=== PATIENT | male | born 1965 | race Caucasian/White ===

== ENCOUNTER → 2020-01-24 15:38 | Outpatient (BNVA) | payer OTHER, MEDICARE, SELFPAY | PROVIDERS: PCP Internal Medicine; Visit Provider Anesthesiology | DX: G89.4 Chronic pain syndrome (principal); M51.36 Other intervertebral disc degeneration, lumbar region; M47.816 Spondylosis without myelopathy or radiculopathy, lumbar region; M54.6 Pain in thoracic spine; Z79.891 Long term (current) use of opiate analgesic | CPT/HCPCS: 99203 ==

== ENCOUNTER → 2020-02-12 11:14 | Outpatient (BNVA) | payer OTHER, MEDICARE, SELFPAY | PROVIDERS: PCP Internal Medicine; Referring Provider Internal Medicine; Visit Provider Family Medicine Adult Medicine | DX: M47.816 Spondylosis without myelopathy or radiculopathy, lumbar region (principal); M51.36 Other intervertebral disc degeneration, lumbar region; M54.14 Radiculopathy, thoracic region; Z79.891 Long term (current) use of opiate analgesic | CPT/HCPCS: 99212 ==

== ENCOUNTER → 2020-03-11 10:42 | Outpatient (BNVA) | payer OTHER, MEDICARE, SELFPAY | PROVIDERS: PCP Internal Medicine; Visit Provider Family Medicine Adult Medicine | DX: M47.816 Spondylosis without myelopathy or radiculopathy, lumbar region (principal); M51.36 Other intervertebral disc degeneration, lumbar region; M54.14 Radiculopathy, thoracic region; Z79.891 Long term (current) use of opiate analgesic | CPT/HCPCS: 99212 ==

== ENCOUNTER → 2020-03-25 10:01 | Outpatient (BNVA) | payer OTHER, MEDICARE, SELFPAY | PROVIDERS: PCP Internal Medicine; Visit Provider Family Medicine Adult Medicine | DX: M54.14 Radiculopathy, thoracic region (principal); M47.816 Spondylosis without myelopathy or radiculopathy, lumbar region | CPT/HCPCS: 99212 ==

== ENCOUNTER → 2020-04-24 10:49 | Outpatient (BNVA) | payer OTHER, MEDICARE, SELFPAY | PROVIDERS: PCP Internal Medicine; Referring Provider Internal Medicine; Visit Provider Family Medicine Adult Medicine | DX: M54.14 Radiculopathy, thoracic region (principal); M47.816 Spondylosis without myelopathy or radiculopathy, lumbar region | CPT/HCPCS: 99212 ==

== ENCOUNTER → 2020-05-22 09:51 | Outpatient (BNVA) | payer OTHER, MEDICARE, SELFPAY | PROVIDERS: PCP Internal Medicine; Visit Provider Family Medicine Adult Medicine | DX: M54.14 Radiculopathy, thoracic region (principal); M47.816 Spondylosis without myelopathy or radiculopathy, lumbar region; Z79.891 Long term (current) use of opiate analgesic | CPT/HCPCS: 99212 ==

== ENCOUNTER → 2020-06-19 09:45 | Outpatient (BNVA) | payer OTHER, MEDICARE, SELFPAY | PROVIDERS: PCP Internal Medicine; Visit Provider Family Medicine Adult Medicine | DX: M54.14 Radiculopathy, thoracic region (principal); M47.816 Spondylosis without myelopathy or radiculopathy, lumbar region; Z79.899 Other long term (current) drug therapy | CPT/HCPCS: 99212 ==

== ENCOUNTER → 2020-07-08 10:41 | Outpatient (BNVA) | payer OTHER, MEDICARE, SELFPAY | PROVIDERS: PCP Internal Medicine; Visit Provider Family Medicine Adult Medicine | DX: M54.14 Radiculopathy, thoracic region (principal); M47.816 Spondylosis without myelopathy or radiculopathy, lumbar region | CPT/HCPCS: 99212 ==

== ENCOUNTER → 2020-08-05 10:14 | Outpatient (BNVA) | payer OTHER, MEDICARE, SELFPAY | PROVIDERS: PCP Internal Medicine; Visit Provider Family Medicine Adult Medicine | DX: M54.14 Radiculopathy, thoracic region (principal); M47.816 Spondylosis without myelopathy or radiculopathy, lumbar region | CPT/HCPCS: 99212 ==

== ENCOUNTER → 2020-09-01 14:03 | Outpatient (BNVA) | payer OTHER, MEDICARE, SELFPAY | PROVIDERS: Visit Provider Internal Medicine | DX: F11.20 Opioid dependence, uncomplicated (principal) | CPT/HCPCS: 80305; 99202; 99212 ==

== ENCOUNTER → 2020-09-08 14:13 | Outpatient (BNVA) | payer OTHER, MEDICARE, SELFPAY | PROVIDERS: Visit Provider Internal Medicine | DX: F11.20 Opioid dependence, uncomplicated (principal) | CPT/HCPCS: 80305; 99212 ==

== ENCOUNTER → 2020-09-22 10:56 | Outpatient (BNVA) | payer OTHER, MEDICARE, SELFPAY | PROVIDERS: Visit Provider Internal Medicine | DX: F11.20 Opioid dependence, uncomplicated (principal) | CPT/HCPCS: 80305; 99212 ==

== ENCOUNTER → 2020-10-06 11:15 | Outpatient (BNVA) | payer OTHER, MEDICARE, SELFPAY | PROVIDERS: Visit Provider Internal Medicine | DX: F11.20 Opioid dependence, uncomplicated (principal); Z51.81 Encounter for therapeutic drug level monitoring | CPT/HCPCS: 80305; 99211 ==

== ENCOUNTER → 2020-10-21 11:23 | Outpatient (BNVA) | payer OTHER, MEDICARE, SELFPAY | PROVIDERS: Visit Provider Internal Medicine | DX: Z51.81 Encounter for therapeutic drug level monitoring (principal) | CPT/HCPCS: 80305; 99211 ==

== ENCOUNTER → 2020-11-18 10:25 | Outpatient (BNVA) | payer OTHER, SELFPAY | PROVIDERS: Visit Provider Internal Medicine | DX: F11.20 Opioid dependence, uncomplicated (principal) | CPT/HCPCS: 80305; 99212 ==

== ENCOUNTER → 2020-12-17 10:21 | Outpatient (BNVA) | payer OTHER, MEDICARE, SELFPAY | PROVIDERS: Visit Provider Internal Medicine | DX: F11.20 Opioid dependence, uncomplicated (principal) | CPT/HCPCS: 80305; 99212 ==

== ENCOUNTER 2021-01-13 10:27 | Outpatient (REF) | payer OTHER, MEDICARE, SELFPAY ==
[2021-01-13 17:26] LABS: Fentanyl, urine Not Detected (Not Detect)
== END 2021-01-13 10:28 | disposition home or self-care (01) ==
LOC: HO.LNP 10:27
PROVIDERS: Visit Provider Internal Medicine
DX: F11.20 Opioid dependence, uncomplicated (principal)
CPT/HCPCS: 80307; 99212

== ENCOUNTER → 2021-09-16 10:53 | Outpatient (BNVA) | payer OTHER, MEDICARE, SELFPAY | PROVIDERS: Visit Provider Internal Medicine | DX: Z51.81 Encounter for therapeutic drug level monitoring (principal); F11.20 Opioid dependence, uncomplicated | CPT/HCPCS: 80305; 99212 ==

== ENCOUNTER → 2021-09-18 13:11 | Outpatient (BNVA) | payer OTHER, MEDICARE, SELFPAY | PROVIDERS: Visit Provider Nurse Practitioner Family | DX: M51.36 Other intervertebral disc degeneration, lumbar region (principal); M54.6 Pain in thoracic spine; M47.817 Spondylosis without myelopathy or radiculopathy, lumbosacral region; M62.838 Other muscle spasm; M46.1 Sacroiliitis, not elsewhere classified | CPT/HCPCS: 99212 ==

== ENCOUNTER → 2021-10-14 11:21 | Outpatient (BNVA) | payer OTHER, MEDICARE, SELFPAY | PROVIDERS: Visit Provider Internal Medicine | DX: Z51.81 Encounter for therapeutic drug level monitoring (principal); F11.20 Opioid dependence, uncomplicated | CPT/HCPCS: 80305; 99212 ==

== ENCOUNTER → 2021-10-23 11:02 | Outpatient (BNVA) | payer OTHER, MEDICARE, SELFPAY | PROVIDERS: Visit Provider Nurse Practitioner Family | DX: M51.36 Other intervertebral disc degeneration, lumbar region (principal); M54.6 Pain in thoracic spine; M47.817 Spondylosis without myelopathy or radiculopathy, lumbosacral region; M62.838 Other muscle spasm; M46.1 Sacroiliitis, not elsewhere classified; M79.7 Fibromyalgia | CPT/HCPCS: 99212 ==

== ENCOUNTER → 2021-11-06 11:19 | Outpatient (BNVA) | payer OTHER, MEDICARE, SELFPAY | PROVIDERS: Visit Provider Internal Medicine | DX: F11.20 Opioid dependence, uncomplicated (principal); Z51.81 Encounter for therapeutic drug level monitoring; Z79.899 Other long term (current) drug therapy | CPT/HCPCS: 80305; 99212 ==

== ENCOUNTER → 2021-12-04 11:23 | Outpatient (BNVA) | payer OTHER, MEDICARE, SELFPAY | PROVIDERS: PCP Internal Medicine; Visit Provider Internal Medicine | DX: Z51.81 Encounter for therapeutic drug level monitoring (principal); F11.20 Opioid dependence, uncomplicated | CPT/HCPCS: 99212 ==

== ENCOUNTER → 2022-01-01 10:37 | Outpatient (BNVA) | payer OTHER, MEDICARE, SELFPAY | PROVIDERS: PCP Internal Medicine; Visit Provider Internal Medicine | DX: Z51.81 Encounter for therapeutic drug level monitoring (principal); F11.20 Opioid dependence, uncomplicated | CPT/HCPCS: 99212 ==

== ENCOUNTER → 2022-01-19 10:12 | Outpatient (BNVA) | payer OTHER, MEDICARE, SELFPAY | PROVIDERS: PCP Internal Medicine; Visit Provider Nurse Practitioner Family | DX: M79.7 Fibromyalgia (principal); M54.14 Radiculopathy, thoracic region; M62.838 Other muscle spasm; G89.4 Chronic pain syndrome | CPT/HCPCS: 99212 ==

== ENCOUNTER → 2022-09-30 09:53 | Outpatient (BNVA) | payer OTHER, MEDICARE, SELFPAY | PROVIDERS: PCP Internal Medicine; Visit Provider Nurse Practitioner Psychiatric/Mental Health | DX: F11.20 Opioid dependence, uncomplicated (principal); Z79.899 Other long term (current) drug therapy | CPT/HCPCS: 99212 ==

== ENCOUNTER 2024-12-07 14:27 | Inpatient (IN) | payer MEDICARE, SELFPAY ==
--- NOTE | 2024-12-07 | ECG_ITS ---
Test Reason : pre op for ortho Blood Pressure : */* mmHG Vent. Rate : 89 BPM Atrial Rate : 89 BPM P-R Int : 216 ms QRS Dur : 92 ms QT Int : 350 ms P-R-T Axes : 42 21 34 degrees QTcB Int : 425 ms Sinus rhythm with 1st degree A-V block Nonspecific T wave abnormality Abnormal ECG No previous ECGs available Referred By: Jessica Prado Electronically Signed By: MAXINE RIVERO MD
--- NOTE | ~2024-12-07 | XR_ITS ---
CLINICAL HISTORY: post red 2 view right ankle Comparison: CR/SR - XR ANKLE 2 VIEWS RIGHT - 12/07/24 15:26 EDT Findings: Fractures of the distal metaphysis of the fibula and the medial malleolus demonstrate significant interval improvement in alignment and positioning of fracture fragments. Mild residual displacement. Interval reduction of the tibiotalar dislocation. Mild asymmetry of the ankle mortise with relative widening of the medial aspect. No radiopaque foreign body. IMPRESSION: Interval reduction of a dislocation of the tibiotalar joint and of fractures of the distal fibula and medial malleolus as above. This document has been electronically signed by: Katerine Vazquez MD on 12/07/2024 18:03:24
--- NOTE | ~2024-12-07 | XR_ITS ---
EXAMINATION: XR WRIST, LEFT CLINICAL INFORMATION: trauma COMPARISON: None available. TECHNIQUE: PA, lateral, and oblique views of the left wrist. FINDINGS: There is an acute comminuted impacted and dorsally angulated cortical disruption distal epiphysis metaphysis of the radius with overlapping of the fragments. The distal ulna appears intact. The carpal bones are intact with normal alignment. XR/XR wrist LT min 3V IMPRESSION: Acute comminuted impacted and dorsally angulated fracture, distal epiphysis and metaphysis left radius. Electronically signed by: Chaz Johnson MD 12/07/2024 03:42 PM EDT
--- NOTE | ~2024-12-07 | XR_ITS ---
CLINICAL HISTORY: post-reduction 3 view left wrist Comparison: CR/SR - XR WRIST 3 OR MORE VIEWS LEFT - 12/07/24 15:20 EDT Findings: Comminuted intra-articular fracture of the distal radius with significant interval improvement in alignment and positioning of fracture fragments. Fracture fragment overlap has resolved. There is moderate residual displacement measuring up to 1 cm. No significant arthritic change or erosions. No radiopaque foreign body. IMPRESSION: Comminuted intra-articular fracture of the distal radius with improved alignment. This document has been electronically signed by: Katerine Vazquez MD on 12/07/2024 17:58:12
--- NOTE | ~2024-12-07 | FL_ITS ---
EXAMINATION: FL GUIDANCE ONLY HISTORY: Radius Distal Fracture ORIF (L) COMPARISON: Correlation is made with plain films of the left wrist dated 12/07/2024. TECHNIQUE: Fluoroscopy time: 71.32 seconds. Cumulative Dose: 2.0980 mGy. DAP: 0.1268 mGym2 Images: 8. FINDINGS: Fluoroscopic spot films of the left wrist demonstrate internal fixation of the previously seen comminuted fracture of the distal radius with a sideplate and multiple orthopedic screws. FL/FL guidance in OR IMPRESSION: Fluoroscopy during procedure. Please see procedure report for additional information. Electronically signed by: Guanako Stephens MD 12/11/2024 07:05 AM EDT
--- NOTE | ~2024-12-07 | FL_ITS ---
EXAMINATION: FL GUIDANCE ONLY HISTORY: ORIF Ankle Fracture Right COMPARISON: Correlation is made with plain films of the right ankle dated 12/07/2024. TECHNIQUE: Fluoroscopy time: 0.3 minutes. Cumulative Dose: 1.44 mGy. DAP: 0.0250 mGym2 Images: 4. FINDINGS: Fluoroscopic spot films of the right ankle demonstrate internal fixation of the previously noted fracture of the distal fibula with a sideplate and multiple orthopedic screws. There is also internal fixation of the medial malleolar fracture with 2 screws. Alignment is anatomic. FL/FL guidance in OR IMPRESSION: Fluoroscopy during procedure. Please see procedure report for additional information. Electronically signed by: Guanako Stephens MD 12/10/2024 06:58 AM EDT
--- NOTE | ~2024-12-07 | XR_ITS ---
EXAMINATION: XR ANKLE, RIGHT CLINICAL INFORMATION: trauma COMPARISON: None available. TECHNIQUE: AP and lateral views of the right ankle. FINDINGS: There is an acute diagonally oriented cortical disruption involving distal diaphysis metaphysis of the fibula with lateral displacement of the lateral malleolus and a 4 mm gap between the fragments. There is an acute cortical disruption involving the medial malleolus with medial displacement of the proximal tibia. There is an acute cortical disruption involving the posterior aspect of the distal metaphysis and epiphysis of the tibia. There is an compression deformity of the tibiotalar joint with the medial position of the tibia with respect to the extra-axial eversion of the foot. The calcaneus and talus appear intact. XR/XR ankle RT 2V IMPRESSION: Acute, laterally displaced eversion bimalleolar fracture or dislocation, left ankle. Probable a Wagoner C Electronically signed by: Chaz Johnson MD 12/07/2024 03:41 PM EDT
--- NOTE | ~2024-12-07 | CT_ITS ---
CLINICAL HISTORY: Left distal radius fx CT wrist left without contrast Comparison: CR - XR WRIST LT 2V - 12/07/24 17:20 EDT Findings: There is a splint overlying the wrist, limiting fine detail of the osseous structures. There is a transverse fracture through the distal radial metaphysis with longitudinal extension to the articular surface. Minimally impacted fracture. Distal fracture fragment is dorsally displaced by 7 mm with minimal dorsal angulation, Unchanged from prior. No fracture deformity of the distal ulna. IMPRESSION: Intra-articular comminuted fracture of the distal radius with 7 mm of dorsal displacement. This document has been electronically signed by: Chano Kerr MD on 12/09/2024 11:41:57
[2024-12-07 14:46] VITALS: BP 130/71; PULSE 87; RESP 18; TEMP 36.9; O2SAT 97
[2024-12-07 14:49] VITALS: BP 107/64; PULSE 78; O2SAT 95; BMI 31.5
--- NOTE | 2024-12-07 14:51 | ED.GENADULT ---
HPI - General Adult General Chief complaint: Fall Stated complaint: FALL OFF LADDER Time Seen by Provider: 12/07/24 14:51 History of Present Illness ED Provider: Yayo PARTIDA narrative: The patient is a 59-year-old male with a history of chronic pain issues. He is on Suboxone. He also takes clonazepam and methocarbamol. The patient was on a ladder. He was up about 5 ft. He was changing his position on the ladder when he lost his balance and fell. He was power washing his mother's house. He landed on the ground which she describes as dirt or gravel. When he fell he injured his left wrist and his right ankle. He did not hit his head. He had no loss of consciousness. He has no head pain. He has no neck pain. He has no pain with moving his neck. He has no chest pain or pain with breathing. No back pain. No abdominal pain. He says that the only pain he is experiencing is in his left wrist and his right ankle. He had deformities of both the left wrist and the right ankle. An ambulance was called and he was brought to the hospital. Related Data Home Medications ?Medication ?Instructions ?Recorded ?Confirmed chlorthalidone 25 mg tablet 25 mg PO DAILY 01/24/20 01/19/22 testosterone cypionate 200 mg/mL 200 mg IM Q2W 01/24/20 01/19/22 intramuscular oil clonazepam 0.5 mg tablet 0.5 mg PO TID 09/18/21 01/19/22 losartan 100 mg tablet 100 mg PO DAILY 10/23/21 01/19/22 meloxicam 15 mg tablet 15 mg PO DAILY 10/23/21 01/19/22 potassium chloride 20 mEq meq PO 01/19/22 01/19/22 tablet,extended release ibuprofen 800 mg tablet 800 mg PO BID PRN Pain 12/07/24 semaglutide 0.25 mg or 0.5 mg (2 0.5 mg subcut QWEEK 12/07/24 mg/3 mL) subcutaneous pen injector (Ozempic) Previous Rx's ?Medication ?Instructions ?Recorded naloxone 4 mg/actuation nasal 4 mg intranasal Q2M PRN opioid 09/18/21 spray (Narcan) overdose 1 day #2 ea methocarbamol 750 mg tablet 750 mg PO TID muscle spasms 90 01/19/22 days #270 tabs pregabalin 225 mg capsule 225 mg PO Q12H pain 90 days #180 01/19/22 caps buprenorphine 8 mg-naloxone 2 mg 1 film sublingual TID 30 days #90 09/30/22 sublingual film (Suboxone) ea Allergies Allergy/AdvReac Type Severity Reaction Status Date / Time glipizide Allergy Severe N/V for 5 Verified 12/07/24 14:52 days pentazocine (From Talwin) Allergy Severe Very rapid Verified 12/07/24 14:52 HR and high BP Review of Systems Review of Systems: Yes all other systems are reviewed and are negative [facility] Past Medical History Medical History Chronic pain syndrome Chronic, continuous use of opioids Disc degeneration, lumbar Low back pain Opioid dependence Opioid dependence Spondylosis of lumbar spine Thoracic radiculopathy Thoracic spine pain Social History Social History Patient Tobacco Use Status: Former Tobacco user Smoked in Last 30 Days: No Use of substances other than those prescribed or required for medical reasons: No Advance Directives: No Advance Directives Information Provided: Yes Physical Exam ED Vital Signs: Vital Signs - 24 hr 12/07/24 14:46 Temperature 98.5 F Pulse Rate 87 Respiratory Rate 18 Blood Pressure 130/71 Pulse Oximetry 97 Oxygen Delivery Method Room Air BMI result Body Mass Index 31.5 Const Other: The patient is a 59-year-old male who had his left forearm placed in a splint. He had an obvious deformity to his left wrist despite the splint. He also had an obvious deformity to his right ankle. He was awake and alert with a normal mental status. He has a pleasant demeanor and looked surprisingly comfortable given his obvious injuries. HENMT Other: No signs of injury to the head or the face. Face is symmetrical. Mucous membranes moist. Eyes Other: Pupils are round equal, conjunctivae are clear General: appearance normal, both eyes and all related structures Neck Other: No C-spine tenderness, moving his neck easily, C-spine is clinically clear Resp Effort & Inspection: normal respiratory effort Auscultation: clear to auscultation bilaterally Cardio Rate: regular rate Rhythm: regular rhythm Heart sounds: S1 normal heart sound present and S2 normal heart sound present GI Other: Abdomen is soft and nontender Skin Other: There is a very slight abrasion to the ulnar side of the wrist. This is very clearly not a significant injury. The skin is otherwise intact both at the wrist and at the ankle. Neuro Other: The patient is awake and alert with a normal mental status. Cranial nerves are grossly intact. Who seems to have intact sensation in the fingers of the left hand although he says that there is a bit of a numbness sensation even though he can feel me touching all of his fingers. He has intact sensation in the toes of the right foot. Extrem Other: The patient has a silver fork type deformity to the left wrist. He has a deformity to the right ankle with external rotation of the ankle. He has good pulses in the feet. The fingers are well-perfused. Medications Administered Discontinued Medications Generic Name Dose Route Start Last Admin Trade Name Freq PRN Reason Stop Dose Admin Bupivacaine HCl 20 ml 12/07/24 15:14 12/07/24 15:36 Bupivacaine Mpf 0.25 % 10 Ml Vial INFILTRATI 12/07/24 15:15 20 ml ONCE ONE Administration Diazepam 10 mg 12/07/24 16:16 12/07/24 16:28 Diazepam 10 Mg/2 Ml Cartridge IVPUSH 12/07/24 16:17 10 mg STAT STA Administration Hydromorphone HCl 1 mg 12/07/24 14:55 12/07/24 15:08 Hydromorphone Hcl 1 Mg/Ml Syringe IVPUSH 12/07/24 14:56 1 mg ONCE ONE Administration Protocol Hydromorphone HCl 1 mg 12/07/24 16:16 12/07/24 16:28 Hydromorphone Hcl 1 Mg/Ml Syringe IVPUSH 12/07/24 16:17 1 mg ONCE ONE Administration Protocol Hydromorphone HCl 1 mg 12/07/24 16:49 12/07/24 16:55 Hydromorphone Hcl 1 Mg/Ml Syringe IVPUSH 12/07/24 16:50 1 mg ONCE ONE Administration Protocol Procedures Orthopedic Fracture Reduction Fracture #1: Time Out Performed: Yes Side: left Fracture Reduction Location: radius Analgesia: hematoma block (Administered under sterile conditions with 10 mL of 0.25% bupivacaine through a 21 gauge needle.) Technique: finger traps (The left index and middle fingers were suspended with Kerlix. Weights were applied at the left elbow. 15 lb of weight were applied for 10 minutes. Sugar-tong splint was applied subsequently.) Post Reduction X-rays Demonstrate: acceptable reduction Post-reduction neuro exam: intact Post-reduction vascular exam: intact Splint Applied: Yes Patient Tolerated Procedure: well Fracture #2: Time Out Performed: Yes Fracture Reduction Location: tibia (Trimalleolar fracture right ankle) Analgesia: hematoma block (10 mL of 0.25% bupivacaine applied intra-articularly through the anterior ankle after identifying the dorsalis pedis pulse with the ultrasound and avoiding the artery. This was done under sterile conditions.) Technique: direct manipulation Post Reduction X-rays Demonstrate: acceptable reduction Post-reduction neuro exam: intact Post-reduction vascular exam: intact Splint Applied: Yes Patient Tolerated Procedure: well Orthopedic Splinting/Casting Injury #1: Side: left Upper Extremity Injury Location: wrist Upper Extremity Immobilizer: sugar tong splint (Cast padding, Orthoglass, an Colton bandages) Additional Comments: The patient tolerated the splint application well and remained neurovascularly intact. Injury #2: Side: right Lower Extremity Injury Location: ankle (Trimalleolar fracture dislocation) Lower Extremity Immobilizer: posterior splint and stirrup splint Additional Comments: The leg was wrapped with a generous amount of cast padding. The posterior splint and a stirrup splint were then applied using Orthoglass and Colton bandages. The patient tolerated the procedure well. The patient remained neurovascularly intact. Medical Decision Making Medical Decision Making [facility] Narrative: The patient is a 59-year-old male who was not on anticoagulants and who does not seem to have any significant cardiovascular medical history but who does have a history of chronic pain and is on Suboxone and clonazepam and methocarbamol. I believe his medications prescribed in [place]. He is currently visiting his mother in his area. The patient had a fall off a ladder today, a mechanical fall. He sustained a left wrist fracture and a right ankle fracture. He denies any other injuries and he does not seem to have any other injuries. The fractures are closed fractures and I think there is no significant neurovascular injury. The patient has displaced fractures at both the wrist and the ankle. I explained to the patient that the displaced fractures should be reduced. The patient consented. The left wrist fracture was addressed 1st. A hematoma block was administered under sterile condition using 10 mL of 0.25% bupivacaine administered through a 21 gauge needle through the dorsum of the left wrist at the fracture site. After the hematoma block was allowed to take effect the left arm was hung using Kerlix at the index and middle fingers to suspend the arm. Weights were then applied to the elbow for traction. After there seemed to be significant straightening of the fracture I applied a sugar-tong splint with cast padding, Orthoglass, and Colton bandages with molding of the splint. After the left wrist fracture was splinted I then turned my attention to the right ankle fracture. A hematoma block was administered through the anterior ankle using 10 mL of 0.25% bupivacaine administered through a 21 gauge needle under sterile conditions. After the hematoma block was allowed to take effect I then attempted to reduce the deformity of the right ankle. The deformity reduced extremely easily. I was able to apply a posterior splint and a stirrup splint using cast padding, Orthoglass, an Colton bandages. The patient tolerated procedure well. Postreduction x-rays of the left wrist and right ankle were obtained which showed significant improvement in the fracture alignments. The patient remained neurovascularly intact in both the left hand and the right foot. The patient tolerated both procedures well. The case was discussed with Orthopedics and the patient will be admitted to the orthopedic service for probable surgical repairs tomorrow. The patient had also been given hydromorphone and diazepam IV for pain prior to the procedures. Discharge Plan Discharge Clinical Impression: Closed fracture of left wrist, Closed displaced trimalleolar fracture of right ankle Patient Disposition: Admitted As Inpatient
--- OUTSIDE RECORDS SUMMARY | 2024-12-07 15:10 | XMS_ITS | Patient Health Record ---
Author Organization [facility] Address [address] [facility] [place] [address] Care Team Providers Care Rate And Cost Analyst Name Role Phone Devang Gardner Unavailable [phone] Julio Ricci Unavailable [phone] Federico Mcghee Unavailable [phone] Arabella Green Unavailable [phone] Allergies Allergen (clinical drug ingredient) Drug/Non Drug Allergy documented on EMR Reaction Allergy Type Onset Date Status Talwin Unknown Drug Allergy Active glipizide Glipizide Unknown Drug Allergy Active Reason For Referral No Information Medications Medication SIG (Take, Route, Frequency, Duration) Notes Start Date End Date Status Suboxone 8-2 MG 1 film under the ton kim and allow to dissolve Sublingual three times a day Active Losartan Potassium 100 MG 1 tablet Orall y Once a day; Duration: 30 day(s) Active Ozempic (0.25 or 0.5 MG/DOSE) 2 MG/3ML Subcutaneous; Duration: 42 Days Active Testosterone Cypionate 200 MG/ML 0.5 ml Injection once a week Active clonazePAM 0.5 MG 1 tablet at bedtime Orally BID PRN Active Chlorthalidone 25 MG 1 tablet in the mor christiano with food Orally Once a day; Duration: 30 day(s) Active Potassium Chloride 20 MEQ 1 packet with food Orally Once a day; Duration: 30 day(s) Active Pregabalin 225 MG 1 capsule in the rodrigo christiano 1 to 3 hours before bedtime Orally Q 12 hours; Duration: 90 days 10/30/2024 Active Ibuprofen 800 MG 1 tablet with food o r milk as needed Orally Q 12 hours; Duration: 90 days Active Meloxicam 15 MG 1 tablet with food Orally Once a day as needed for pain; Duration: 90 days Active Methocarbamol 750 MG 1-2 tabs Orally Q 1 2 hours as needed for pain; Duration: 90 days Active Social History Tobacco Use: Social History Observation Description Date Details (start date - stop date) Former Smoker NA - NA Tobacco Use/Smoking Question Answer Notes Are you a former smoker Problems Problem Type SNOMED Code ICD Code Onset Dates Problem Status W/U Status Risk Notes Problem Information temporarily unavailable Chronic pain syndrome (G89.4) Active confirmed Problem Information temporarily unavailable Sacroiliitis, not elsewhere classified (M46.1) Active confirmed Problem Information temporarily unavailable Spondylosis without myelopathy or radiculopathy, lumbar region (M47.816) Active confirmed Problem Information temporarily unavailable Spondylosis without myelopathy or radiculopathy, lumbosacral region (M47.817) Active confirmed Problem Information temporarily unavailable Spondylosis without myelopathy or radiculopathy, sacral and sacrococcygeal region (M47.818) Active confirmed Problem Information temporarily unavailable Other intervertebral disc displacement, lumbar region (M51.26) Active confirmed Problem Information temporarily unavailable Other intervertebral disc degeneration, lumbar region (M51.36) Active confirmed Problem Information temporarily unavailable Radiculopathy, lumbar region (M54.16) Active confirmed Problem Information temporarily unavailable Sciatica, unspecified side (M54.30) Active confirmed Problem Information temporarily unavailable Lumbar spondylosis (M47.816) Active confirmed Problem Information temporarily unavailable Lumbar radiculopathy (M54.16) Active confirmed Problem Information temporarily unavailable Muscle spasm (M62.838) Active confirmed Problem Information temporarily unavailable Thoracic back pain (M54.6) Active confirmed Problem Information temporarily unavailable Sacroiliitis (M46.1) Active confirmed Problem Information temporarily unavailable DDD (degenerative disc disease), lumbar (M51.36) Active confirmed Problem Information temporarily unavailable Thoracic spondylosis (M47.814) Active confirmed Problem Information temporarily unavailable Lumbar facet arthropathy (M12.88) Active confirmed Problem Information temporarily unavailable Sacroiliac dysfunction (M53.3) Active confirmed Problem Information temporarily unavailable Lumbar facet arthropathy (M46.96) Active confirmed Vital Signs Heart Rate 75 /min 06/14/2024 Respiratory Rate 16 /min 10/30/2024 Blood pressure diastolic 86 mm Hg 06/14/2024 Height 72 in 10/30/2024 Blood pressure systolic 126 mm Hg 06/14/2024 Weight 203 lbs 10/30/2024 BMI 27.53 kg/m2 10/30/2024 Procedures Procedure Date Ordered Date Performed Result Body Sit e DME LSO - Please dispense LS O brace for this patient for the below diagnosis. 06/18/2024 N/A Encounters Encounter Location Date Provider Diagnosis [facility] [address] [place] [address] 02/01/2024 Arabella Green Chronic pain syndrom e G89.4 ; Thoracic spondylosis M47.814 ; Lumbar radiculopathy M54.16 ; Lumbar spondylosis M47.816 ; Lumbar facet arthropathy M12.88 ; DDD (degenerative disc disease), lumbar M51.36 and Sacroiliitis M46.1 [facility] [address] [place] [address] 03/02/2024 Federico Mcghee Radiculopathy, lumbar region M54.16 and Other intervertebral disc displacement, lumbar region M51.26 [facility] [address] [place] [address] 03/21/2024 Federico Mcghee Chronic pain syndrome G89.4 ; Lumbar radiculopathy M54.16 ; Thoracic spondylosis M47.814 ; Lumbar spondylosis M47.816 ; Lumbar facet arthropathy M12.88 ; DDD (degenerative disc disease), lumbar M51.36 and Sacroiliitis M46.1 [facility] [address] [place] [address] 05/16/2024 Arabella Green Chronic pain syndrom e G89.4 ; Lumbar radiculopathy M54.16 ; Thoracic spondylosis M47.814 ; Lumbar spondylosis M47.816 ; Lumbar facet arthropathy M12.88 ; DDD (degenerative disc disease), lumbar M51.36 and Sacroiliitis M46.1 [facility] [address] [place] [address] 06/01/2024 Federico Mcghee Radiculopathy, lumbar region M54.16 ; Other intervertebral disc displacement, lumbar region M51.26 and Other intervertebral disc degeneration, lumbar region with discogenic back pain and lower extremity pain M51.362 [facility] [address] [place] [address] 06/14/2024 Arabella Green Chronic pain syndrom e G89.4 ; Lumbar radiculopathy M54.16 ; Thoracic spondylosis M47.814 ; Lumbar spondylosis M47.816 ; Lumbar facet arthropathy M12.88 ; DDD (degenerative disc disease), lumbar M51.36 ; Sacroiliitis M46.1 and Spondylosis without myelopathy or radiculopathy, lumbar region M47.816 [facility] [address] [place] [address] 10/30/2024 Devang Gardner Chronic pain syndrom e G89.4 ; Lumbar radiculopathy M54.16 ; Thoracic spondylosis M47.814 ; Lumbar spondylosis M47.816 ; Lumbar facet arthropathy M12.88 ; DDD (degenerative disc disease), lumbar M51.36 ; Sacroiliitis M46.1 and Spondylosis without myelopathy or radiculopathy, lumbar region M47.816 [facility] [address] [place] [address] 04/26/2024 [facility] [address] [place] [address] 06/14/[address] [facility] [address] [place] [address] 06/18/2024 Federico Mcghee Lumbar spondylosis M47.816 Assessments Encounter Date Diagnosis (ICD Code) Assessment Notes Treatment Notes Treatment Clinical Notes Section Notes 02/01/2024 Chronic pain syndrome (ICD-10 - G89.4) 02/01/24: Patient returns to clinic today to review MRI lumbar spine. Findings are documented below and have been reviewed with the patient today. We discussed Left L5-S1 TFESI for S1 radicular symptoms, if no improvement then repeat left SIJ injection. We reviewed the procedure including risks and benefits. All questions were answered. The patient wants to proceed. He reports meloxicam is not beneficial. We will change to IBU 800mg BID PRN with food or milk. Medication side effects reviewed. f/u in 2 weeks post procedure. 12/07/23: Patient presents today for a post procedure follow up visit. He reports 85% pain relief from the Bilateral SIJ injection performed on 11/08/23. He reports increased pain along his S1 dermatone. We will order an updated MRI lumbar spine for further evaluation and interventional planning. His last MRI lumbar spine was in 2019. To address his increased pain, we will prescribe a medrol dose lori. We will also refill his current medications. Medication side effects reviewed. f/u in 4 weeks for imaging review. 10/19/23: The patient returns for a follow up visit. He complains of increased SIJ pain. He is requesting repeat bilateral SIJ injections. We reviewed the procedure including risks and benefits. All questions were answered. The patient wants to proceed. f/u in 2 weeks post procedure. 06/09/23: Patient returns to clinic today for a follow up visit and medication refill. He acheives satisfactory pain relief on medications with ability to maintain a quality of life. He is requesting refills which will be sent to the pharmacy. His MRI thoracic was denied since patient has no radicular symptoms. We will cancel the MRI order. f/u in 6 months. 11/17/22: Patient presents to clinic for a 3 month follow-up and medication refill. He continues to endorse ongoing pain in the mid thoracic spine that does not radiate into the upper or lower extremities. He denies any numbness, tingling, or weakness. His thoracic back pain is aggravated by standing and walking for extended periods of time and with bending, lifting, and twisting. He has not yet been able to undergo the thoracic MRI as this was denied by Workers [employer]. Will re-order thoracic MRI w/o contrast. He reports good analgesia with Lyrica, Meloxicam, and Robaxin; refills provided of all medications x 6 months. All questions answered to patient's satisfaction. Patient to f/u in 6 months (or sooner pending radiologic imaging). 09/08/22: Patient presents today for a follow up and imaging review. He reports ongoing pain in the mid thoracic spine without upper or lower extremity radicular pain, numbness or tingling. He was unable to obtain the previously requested Thoracic spine MRI as this was denied by Work Comp. He has appealed this decision and is now awaiting the results of the appeal. He is taking Lyrica, Meloxicam and Robaxin which provide fair analgesia without reported side effects. . He is leaving for [place] on 09/18/22 and returning to [place] in end of October. He is requesting a paper prescription for Lyrica so that he can fill it while away. Al questions were addressed. He will follow up when he returns to [place]. 06/27/22: Patient presents today for a post procedure follow up. He underwent L5-S1 IL DAVIN on 06/15/2022 and reports 98% ongoing pain relief. He continues to endorse pain in the mid back over the mid thoracic spine that does not radiate into the upper or lower extremities. Pain is aggravated by exertional activity and alleviated with rest and medications. He has been taking Lyrica, meloxicam and methocarbamol as prescribed which provide fair analgesia without reported side effects. He is requesting a refill Lyrica and Methocarbamol. I have recommended obtaining thoracic spine MRI for further evaluation. All questions were addressed. He will follow up in 4 weeks. 05/19/22: Patient presents to clinic for a follow-up in regards to his worsening lower back pain. His previously scheduled lumbar DAVIN was not authorized by . Since he was last seen in clinic, he denies any changes in his symptoms. He continues to experience a constant aching pain all across his lower back, worse on the left, with pain radiating down the posterior aspect of the left LE to the foot. He reports weakness of the left LE. His pain is aggravated by standing and walking for extended periods of time. Alleviating factors include sitting, repositioning, medications, and rest. I have recommended the patient undergo a L5-S1 IL DAVIN left to paracentral secondary to neurological deficits as patient's pain continues to affect his QOL. Risks, benefits, side effects, and pre-procedure instructions reviewed with patient. Patient agreeable to plan. All questions answered to patient's satisfaction. Patient to f/u 2 weeks post-procedure. 04/28/22: Patient presents today for a post procedure follow-up. He underwent bilateral L3-L5 diagnostic MBB's on 04/22/2022 and reports minimal pain relief. The patient is endorsing ongoing pain in the left more than right lumbosacral spine that radiates laterally and distally into the left posterior hip/buttock and thigh. Pain is aggravated by prolonged standing and walking and minimally alleviated with sitting. He continues to take Lyrica, meloxicam and Robaxin as prescribed which provide fair analgesia without reported side effects. He is requesting refill of Meloxicam and Robaxin. Lumbar spine MRI results from 2019 were reviewed with the patient. After reviewing the patient's clinical symptomatology and today's physical findings, it is my clinical judgment that the patient could get significant benefit by proceeding with an L5-S1 interlaminar epidural steroid injection. I have described the technical aspects of the procedure using a model of the spine in clinic. Potential risks, benefits and alternatives were also discussed in detail. He is interested in proceeding at this time. All questions were addressed. He will follow up after the procedure. 04/14/22: Patient presents to clinic for a 2 week post-procedure follow-up and for imaging review. He underwent a bilateral SIJ corticosteroid injection on 03/29/22. Today, he reports 95% relief. He reports significant improvement in his SIJ-mediated pain since undergoing the SIJ injections. Today, he is here to review his lumbar X-rays. Imaging reviewed in detail with patient as below. He continues to endorse a constant aching pain in his midline lumbar spine that does not radiate into the lower extremities. 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 Alleviating factors include sitting, repositioning, and rest. Will schedule patient for diagnostic bilateral L3, L4, L5 MBBs x 2. Risks, benefits, and pre-procedure instructions reviewed with patient. Patient agreeable to plan. He reports good analgesia with Lyrica and is requesting a refill; refill provided x 3 months. All questions answered to patient's satisfaction. Patient to f/u 1 week after each lumbar MBB. 02/24/22: Patient presents to clinic for a follow-up in regards to his lower back pain and for medication refill. He recently returned from his trip to [place] and would like to obtain a refill of his Meloxicam and Methocarbamol. He reports he obtained poor relief with the previously prescribed Cyclobenzaprine and has trialed Tizanidine with his pain management in [place] with side effects of low BP and dizziness. He has since been re-started back on his Methacarbamol which he has taken years ago with good relief. Medical records from [facility] in [place], [place] available for review (scanned into chart). Refill provided of Methocarbamol and Meloxicam x 3 months. Since he was last seen in clinic, he reports his lower back has become worse over the past three months. He continues to experience a constant aching pain all across his lower back with pain radiating into the bilateral buttocks. He reports numbness of the left thigh. His lower back pain is worsened with standing and walking for extended periods of time. Alleviating factors include repositioning, rest, and medications. Upon assessment, patient has moderate to severe tenderness to palpation over the bilateral SIJs. Will schedule patient for a bilateral SIJ corticosteroid injection. Risks, benefits, side effects, and pre-procedure instructions reviewed with patient. Patient agreeable to plan. Will order new lumbar X-rays. All questions answered to patient's satisfaction. Patient to f/u 2 weeks post-procedure. 09/04/21: Patient presents to clinic for a 4 week follow-up for medication effectiveness. He reports good analgesia with Cyclobenzaprine and denies any side effects; refill provided x 3 months. He is also requesting a refill of Lyrica and Meloxicam; refill provided x 3 months of both medications. His lower back pain is stable at this time and prefers to defer undergoing any injections at this time. He is planning on going to [place] for the Summer and will be back in the fall. All questions answered to patient's satisfaction. Patient to f/u PRN (he will call when he is back in town). 08/07/21: Patient presents to clinic for a 2 week post-procedure follow-up. He underwent a bilateral SIJ corticosteroid injection on 07/24/21. Today, he reports 90% relief. He reports significant improvement in his lower back and SIJ-mediated pain since undergoing the bilateral SIJ injection. He is able to ambulate and stand for longer periods of time with less pain in his SIJs. Will consider repeating SIJ injections in the future if his pain returns. He would like to discuss obtaining a prescription for a different muscle relaxant. He is currently taking Methocarbamol 750 mg, 1-2 tablets twice a day as needed with poor analgesia. Will discontinue Methocarbamol and trial Cyclobenzaprine 10 mg 2-3 times per day PRN for muscle spasms. Side effect profile reviewed with patient. Patient agreeable to plan. All questions answered to patient's satisfaction. Patient to f/u in 4 weeks for medication effectiveness. 07/08/21: Patient presents to clinic for a pre-procedure follow-up for records review and medication refill. His bilateral SIJ injection scheduled for 06/25/21 was denied by worker's comp, however, we now have authorization to proceed with the injection. He is scheduled for a bilateral SIJ injection on 07/24/21. Since he was last seen in clinic, he denies any changes in his symptoms. He continues to experience a constant aching pain all across his lower back with pain radiating into the bilateral buttocks and a burning sensation in the left lateral and anterior aspect of the thigh. He reports numbness of the left thigh. His lower back pain is worsened with standing and walking for extended periods of time. Alleviating factors include repositioning, rest, and medications. Upon assessment, patient has moderate to severe tenderness to palpation over the bilateral SIJs. He has underwent bilateral SIJ injections in [place] by Dr. Praneeth Escoto, most recently in 12/2020 with 80-90% relief lasting about six months. Records reviewed from [facility] in [place] (scanned into chart). Risks, benefits, side effects, and pre-procedure instructions reviewed with patient. Patient agreeable to plan. He is requesting refills of Lyrica, Robaxin, and Meloxiam; refill provided of all medications x 3 months. All questions answered to patient's satisfaction. Patient to f/u 2 weeks post-procedure. 06/10/21: Patient presents to clinic for a pre-procedure follow-up. He is scheduled to undergo a bilateral SIJ corticosteroid injection on 06/25/21. Since he was last seen in clinic, he denies any changes in his symptoms. He continues to experience a constant aching pain all across his lower back with pain radiating into the bilateral buttocks and a burning sensation in the left lateral and anterior aspect of the thigh. He reports numbness of the left thigh. His lower back pain is worsened with standing and walking for extended periods of time. Alleviating factors include repositioning, rest, and medications. Upon assessment, patient has moderate to severe tenderness to palpation over the bilateral SIJs. He has underwent bilateral SIJ injections in [place] by Dr. Praneeth Escoto, most recently in 12/2020 with 80-90% relief lasting about six months. Will request records from [facility] (in [place]) from Dr. Praneeth Escoto. Risks, benefits, side effects, and pre-procedure instructions reviewed with patient. Patient agreeable to plan. All questions answered to patient's satisfaction. Patient to f/u 2 weeks post-procedure. 04/24/21: Patient presents to clinic for a 1 month follow-up and medication refill. He reports fair analgesia with Lyrica, Meloxicam, and Robaxin with improvement in his QOL and functionality. He is requesting refills of all of his medications; will refill Lyrica, Meloxicam, and Robaxin x 3 months. He continues to experience a constant aching pain all across his lower back with pain radiating into the bilateral buttocks and a burning sensation in the left lateral and anterior aspect of the thigh. He reports numbness of the left thigh. His lower back pain is worsened with standing and walking for extended periods of time. Alleviating factors include repositioning, rest, and medications. Upon assessment, patient has moderate to severe tenderness to palpation over the bilateral SIJs. Will schedule patient for a bilateral SIJ corticosteroid injection. Risks, benefits, side effects, and pre-procedure instructions reviewed with patient. Patient agreeable to plan. Will plan on scheduling bilateral lumbar MBBs after patient undergoes his bilateral SIJ corticosteroid injection. All questions answered to patient's satisfaction. Patient to f/u 2 weeks post-procedure. 03/27/21: Patient presents for 1 month follow up and medication refill. Patient had procedure scheduled for 03/23/21 but had to cancel due to not being approved by [employer], will reschedule once approved. He reports Meloxicam worked initially but has had a recent flare up of lower back pain. Educated patient on conservative measures and provided him with lower back HEP to incorporate in regimen. Patient walks up to a mile daily, uses Aspar cream and tigerbomb patches with fair relief. Fair analgesia on current regimen. PDMP compliant. Postdated Lyrica refill for 04/09/21, refills snet for Methocarbamol and Meloxicam. Follow up in 1 month. 02/26/21: Patient has returned today for routine follow up of ongoing medication management. The patient's mid and low back pain are not stable and he is unable to perform his daily routine and chores without significant difficulty. He reports progressively worsening pain especially across the lumbosacral spine. He denies lower extremity radicular pain, numbness or tingling. Pain is aggravated after prolonged activity. Lumbar spine MRI from 05/2020 was reviewed with the patient. There is multilevel facet hypertrophy which is likely the cause of his ongoing symptoms. He reports poor analgesia with current medications. He denies significant adverse effects. He has resumed taking Suboxone as prescribed by Dr. Sushil Pabon. I have recomended trial of Meloxicam. Refill Lyrica and Robaxin. I have also recommended lumbar medial branch blocks to address the facet mediated pain. He is interested in proceeding at this time. We will schedule the patient for diagnostic bilateral L3, L4 and L5 medial branch blocks. All questions and concerns were addressed. He will follow up after the procedure. 02/02/21 New patient presenting with chronic mid back pain. Symptoms started after 2 work injuries in 1997. 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 He reports second work injury about 1 1/2 months later while transitioning from flexion to extension. Pain is mostly located over the mid to lower thoracic spine. He denies upper or lower extremity radicular pain, numbness or tingling. Pain is constant and alleviated with the use of medications. He has attempted to undergo injections for pain relief, however these have been denied by . He had a discogram in 1999 which demonstrated disc disease at T10-T12. He underwent IDET procedure in 2000 which did not provide pain relief. The patient is also endorsing pain acrosss the lower lumbar spine radiating into the bilateral posterior hips/buttocks. He has been diagnosed with SIJ dysfunction and has had prior SIJ injections (not covered by ) with good pain relief. He has been undergoing pain management with Dr. Cintron, and more recently with Dr. Lorna Estrada, at the [facility] in [place] from 08/2019 until recently. He has been undergoing injections and taking Suboxone, Lyrica and Robaxin with good relief. The patient's main residence is in [place]. He will be residing in [place] until August 2021. He is requesting a refill of his medications. I have explained that I do not prescribe Suboxone and referred the patient to the online registry. There are no prior medical records or prior [facility] forms available to review. We will request these today. Thoracic spine x-rays and MRI results were reviewed with the patient. Refill Lyrica and Robaxin. All questions and concerns were addressed. Follow up in 4 weeks. PRIOR IMAGING/DIAGNOSTIC S: 12/27/2023 MRI lumbar spine: Compression deformity of L5 noted, mild disc desiccation at L3-4 L4-L5, grade 1 anterior listhesis of L4 over L5 L1-L2 facet arthropathy L2-L3 diffuse disc bulge, 3.3 mm, posterior protrusion indenting the ventral thecal sac, facet arthropathy, moderate to severe neuroforaminal stenosis L3-L4 diffuse disc bulge, posterior protrusion, 3.4 mm, indenting the ventral thecal sac, facet arthropathy, moderate to severe right and severe left neuroforaminal stenosis L4-L5 diffuse disc bulge due to listhesis, protrusion, 3 mm, focal T2 weighted hyperintense signal is seen in the high intensity zone of the central portion of the posterior disc, indenting the ventral thecal sac, facet arthropathy, severe right and moderate to severe left neuroforaminal stenosis L5-S1 diffuse disc bulge, posterior protrusion, 2.4 mm, indenting the ventral thecal sac, facet arthropathy, moderate left and moderate right neuroforaminal stenosis 04/13/22 Lumbar X-rays: There is a grade 1 retrolisthesis at L1-2. There is loss of intervertebral disc height which is most severe at L1-2. There is moderate facet sclerosis. 06/13/19: Thoracic spine x-rays - Mild DDD. 06/13/19: Lumbar spine x-rays - Mild scoliosis and osteophytosis. Facet joint arthropathy. 06/13/19: Lumbar spine MRI - Mild facet hypertrophy at L1-2. Minimal BB disc bulge and mild facet hypertrophy at L2-3. Minimal BB disc bulge with superimposed mild disc protrusion and facet hypertrophy at L3-4 with mild to moderate left and mild right NF narrowing. Mild BB disc bulge with moderate facet hypertrophy at L4-5 with moderate right and mild left NF narrowing and mild CC stenosis. Moderate facet hypertrophy with minimal BB disc bulge at L5-S1 with mild to moderate NF narrowing. PRIOR MEDICATIONS: Belbuca (no relief), Methocarbamol (poor relief), Tizanidine (side effects, low BP) PRIOR PHYSICAL THERAPY/HOME EXERCISE PROGRAM: Last completed in 2019 OTHER: PROCEDURES/INTERVE NTONS: SIJ injections in [place] with great pain relief ANTI-COAGULATION/A NTI-COAGULATION CLEARANCE: None Schedule - Left L5-S1 TFESI, Dr. Castle Future - TPIs vs SIJ injections Past - 11/08/23 Bilateral SIJ injection - 85% relief. 06/15/2022 L5-S1 IL DAVIN with 98% relief 04/22/22 bilateral L3-L5 MBBs with 10% relief 03/29/22 a bilateral SIJ corticosteroid injection with 95% relief 07/24/21 a bilateral SIJ corticosteroid injection with 90% relief PRESCRIPTION DRUG MONITORING PROGRAM CHECKED TODAY URINE DRUG SCREENS/TOXICOLOGY : PRN reviewed: repeat: ORAL: reviewed: POINT OF CARE TOXICOLOGY REPORT Reason for Toxicology: lobsterman pain meds Test Date/Time: Oxycodone (OXY): Morphine (OPI): Amphetamines (AMP): Oxazepam (BZO): Methadone (MTD): Secobarbital (BAR): Tricyclic Antidepressants (TCA): Cocaine (DUYEN): Ectasy-Methylenedi oxymethamphetamine (MDMA): D Methamphetamine (MET): Phencyclidine (PCP): Adulterants (OX, SG, pH): Risk regarding, pain medications and opiates with regards to non-compliance and interactions with other medications/substa nces including benzodiazepines/al cohol/illicit substances were discussed, the dangers of such action including but not limited to respiratory suppression and ; and the patient fully understood without additional concerns or questions. Patient was counseled not to misuse, abuse, divert, or be non-compliant with medications. Risks of addiction, dependence, and tolerance were also discussed with the patient. Non-opiate therapies to assist in decreasing opiate regimen were also offered. Risks and benefits of procedures were discussed. Risks included, but were not limited to, infection, bleeding, hematoma, nerve damage, paralysis, spinal fluid leak, headache, increase in pain, no relief of pain, allergic reaction to medication, pneumothorax, hemodynamic compromise, and . Corticosteroid side effects were discussed including weight gain, water retention, flushing (hot flashes), mood swings or insomnia, and elevated blood sugar levels in people with diabetes. Patient understands that radiation is to be used and that transient weakness may result from this procedure and he/she should not drive the day of the injection. Patient understands that any appropriate blood thinners needs to be discontinued for appropriate amount of time prior to injection but authorization/pacheco odell from his prescribing physician must be obtained prior to discontinuing any meds. Spine model was used to illustrate how injections would be performed and to explain the disease state. Patient fully understand and comprehends the risks/benefits of the procedure. All questions were answered. Refill: The patient may have chronic, intractable pain with the diagnoses listed in the assessment. The patient may be receiving chronic opioid therapy (COT), which requires greater than a 72 hour supply of controlled substance medications. The patient has failed other conservative measures, including but not limited to adjuvant therapy, interventional pain medicine and physical therapy thus leading to COT. COT may be continued indefinitely, and the patient will be reassessed at regular office visits. Patient was instructed NOT to use heavy machinery including driving while taking opiate, muscle relaxants, or other medications which effect driving. Opiate compliance: a. Urine Drug Testing will be performed as needed to ensure patient compliance with medication prescriptions and to rule out illicit usage. The management of patients with chronic pain in a designated pain management clinic where this select population has a significant pretest probability of drug interactions and side effects. b. The [place] prescription drug Database (PDMP, E-FORE) was accessed and reviewed to confirm that patient has been receiving opiate medications from physicians ONLY within this practice, unless other circumstances required such medication to be written for this patient. Medical records and history were reviewed. The patient was interviewed and examined by me. I agree with the assessment and care plan and confirm the diagnosis(es) above. 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 He underwent a left L5-S1 TFESI on 03/02/24 and reports 95% ongoing pain relief. He has noted improved ability to ambulate and perform ADLS since the procedure. Patient reports 1 episode of axial low back pain since his procedure which resolved promptly without intervention. Patient is requesting refill of Lyrica and Methocarbamol which were provided. No questions or concerns today. He will follow up in 2 months. 02/01/24: Patient returns to clinic today to review MRI lumbar spine. Findings are documented below and have been reviewed with the patient today. We discussed Left L5-S1 TFESI for S1 radicular symptoms, if no improvement then repeat left SIJ injection. We reviewed the procedure including risks and benefits. All questions were answered. The patient wants to proceed. He reports meloxicam is not beneficial. We will change to IBU 800mg BID PRN with food or milk. Medication side effects reviewed. f/u in 2 weeks post procedure. 12/07/23: Patient presents today for a post procedure follow up visit. He reports 85% pain relief from the Bilateral SIJ injection performed on 11/08/23. He reports increased pain along his S1 dermatone. We will order an updated MRI lumbar spine for further evaluation and interventional planning. His last MRI lumbar spine was in 2019. To address his increased pain, we will prescribe a medrol dose lori. We will also refill his current medications. Medication side effects reviewed. f/u in 4 weeks for imaging review. 10/19/23: The patient returns for a follow up visit. He complains of increased SIJ pain. He is requesting repeat bilateral SIJ injections. We reviewed the procedure including risks and benefits. All questions were answered. The patient wants to proceed. f/u in 2 weeks post procedure. 06/09/23: Patient returns to clinic today for a follow up visit and medication refill. He acheives satisfactory pain relief on medications with ability to maintain a quality of life. He is requesting refills which will be sent to the pharmacy. His MRI thoracic was denied since patient has no radicular symptoms. We will cancel the MRI order. f/u in 6 months. 11/17/22: Patient presents to clinic for a 3 month follow-up and medication refill. He continues to endorse ongoing pain in the mid thoracic spine that does not radiate into the upper or lower extremities. He denies any numbness, tingling, or weakness. His thoracic back pain is aggravated by standing and walking for extended periods of time and with bending, lifting, and twisting. He has not yet been able to undergo the thoracic MRI as this was denied by [employer]. Will re-order thoracic MRI w/o contrast. He reports good analgesia with Lyrica, Meloxicam, and Robaxin; refills provided of all medications x 6 months. All questions answered to patient's satisfaction. Patient to f/u in 6 months (or sooner pending radiologic imaging). 09/08/22: Patient presents today for a follow up and imaging review. He reports ongoing pain in the mid thoracic spine without upper or lower extremity radicular pain, numbness or tingling. He was unable to obtain the previously requested Thoracic spine MRI as this was denied by Work [employer]. He has appealed this decision and is now awaiting the results of the appeal. He is taking Lyrica, Meloxicam and Robaxin which provide fair analgesia without reported side effects. . He is leaving for [place] on 09/18/22 and returning to [place] in end of October. He is requesting a paper prescription for Lyrica so that he can fill it while away. Al questions were addressed. He will follow up when he returns to [place]. 06/27/22: Patient presents today for a post procedure follow up. He underwent L5-S1 IL DAVIN on 06/15/2022 and reports 98% ongoing pain relief. He continues to endorse pain in the mid back over the mid thoracic spine that does not radiate into the upper or lower extremities. Pain is aggravated by exertional activity and alleviated with rest and medications. He has been taking Lyrica, meloxicam and methocarbamol as prescribed which provide fair analgesia without reported side effects. He is requesting a refill Lyrica and Methocarbamol. I have recommended obtaining thoracic spine MRI for further evaluation. All questions were addressed. He will follow up in 4 weeks. 05/19/22: Patient presents to clinic for a follow-up in regards to his worsening lower back pain. His previously scheduled lumbar DAVIN was not authorized by . Since he was last seen in clinic, he denies any changes in his symptoms. He continues to experience a constant aching pain all across his lower back, worse on the left, with pain radiating down the posterior aspect of the left LE to the foot. He reports weakness of the left LE. His pain is aggravated by standing and walking for extended periods of time. Alleviating factors include sitting, repositioning, medications, and rest. I have recommended the patient undergo a L5-S1 IL DAVIN left to paracentral secondary to neurological deficits as patient's pain continues to affect his QOL. Risks, benefits, side effects, and pre-procedure instructions reviewed with patient. Patient agreeable to plan. All questions answered to patient's satisfaction. Patient to f/u 2 weeks post-procedure. 04/28/22: Patient presents today for a post procedure follow-up. He underwent bilateral L3-L5 diagnostic MBB's on 04/22/2022 and reports minimal pain relief. The patient is endorsing ongoing pain in the left more than right lumbosacral spine that radiates laterally and distally into the left posterior hip/buttock and thigh. Pain is aggravated by prolonged standing and walking and minimally alleviated with sitting. He continues to take Lyrica, meloxicam and Robaxin as prescribed which provide fair analgesia without reported side effects. He is requesting refill of Meloxicam and Robaxin. Lumbar spine MRI results from 2019 were reviewed with the patient. After reviewing the patient's clinical symptomatology and today's physical findings, it is my clinical judgment that the patient could get significant benefit by proceeding with an L5-S1 interlaminar epidural steroid injection. I have described the technical aspects of the procedure using a model of the spine in clinic. Potential risks, benefits and alternatives were also discussed in detail. He is interested in proceeding at this time. All questions were addressed. He will follow up after the procedure. 04/14/22: Patient presents to clinic for a 2 week post-procedure follow-up and for imaging review. He underwent a bilateral SIJ corticosteroid injection on 03/29/22. Today, he reports 95% relief. He reports significant improvement in his SIJ-mediated pain since undergoing the SIJ injections. Today, he is here to review his lumbar X-rays. Imaging reviewed in detail with patient as below. He continues to endorse a constant aching pain in his midline lumbar spine that does not radiate into the lower extremities. 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 Alleviating factors include sitting, repositioning, and rest. Will schedule patient for diagnostic bilateral L3, L4, L5 MBBs x 2. Risks, benefits, and pre-procedure instructions reviewed with patient. Patient agreeable to plan. He reports good analgesia with Lyrica and is requesting a refill; refill provided x 3 months. All questions answered to patient's satisfaction. Patient to f/u 1 week after each lumbar MBB. 02/24/22: Patient presents to clinic for a follow-up in regards to his lower back pain and for medication refill. He recently returned from his trip to [place] and would like to obtain a refill of his Meloxicam and Methocarbamol. He reports he obtained poor relief with the previously prescribed Cyclobenzaprine and has trialed Tizanidine with his pain management in [place] with side effects of low BP and dizziness. He has since been re-started back on his Methacarbamol which he has taken years ago with good relief. Medical records from [facility] in [place], [place] available for review (scanned into chart). Refill provided of Methocarbamol and Meloxicam x 3 months. Since he was last seen in clinic, he reports his lower back has become worse over the past three months. He continues to experience a constant aching pain all across his lower back with pain radiating into the bilateral buttocks. He reports numbness of the left thigh. His lower back pain is worsened with standing and walking for extended periods of time. Alleviating factors include repositioning, rest, and medications. Upon assessment, patient has moderate to severe tenderness to palpation over the bilateral SIJs. Will schedule patient for a bilateral SIJ corticosteroid injection. Risks, benefits, side effects, and pre-procedure instructions reviewed with patient. Patient agreeable to plan. Will order new lumbar X-rays. All questions answered to patient's satisfaction. Patient to f/u 2 weeks post-procedure. 09/04/21: Patient presents to clinic for a 4 week follow-up for medication effectiveness. He reports good analgesia with Cyclobenzaprine and denies any side effects; refill provided x 3 months. He is also requesting a refill of Lyrica and Meloxicam; refill provided x 3 months of both medications. His lower back pain is stable at this time and prefers to defer undergoing any injections at this time. He is planning on going to [place] for the Summer and will be back in the fall. All questions answered to patient's satisfaction. Patient to f/u PRN (he will call when he is back in town). 08/07/21: Patient presents to clinic for a 2 week post-procedure follow-up. He underwent a bilateral SIJ corticosteroid injection on 07/24/21. Today, he reports 90% relief. He reports significant improvement in his lower back and SIJ-mediated pain since undergoing the bilateral SIJ injection. He is able to ambulate and stand for longer periods of time with less pain in his SIJs. Will consider repeating SIJ injections in the future if his pain returns. He would like to discuss obtaining a prescription for a different muscle relaxant. He is currently taking Methocarbamol 750 mg, 1-2 tablets twice a day as needed with poor analgesia. Will discontinue Methocarbamol and trial Cyclobenzaprine 10 mg 2-3 times per day PRN for muscle spasms. Side effect profile reviewed with patient. Patient agreeable to plan. All questions answered to patient's satisfaction. Patient to f/u in 4 weeks for medication effectiveness. 07/08/21: Patient presents to clinic for a pre-procedure follow-up for records review and medication refill. His bilateral SIJ injection scheduled for 06/25/21 was denied by worker's comp, however, we now have authorization to proceed with the injection. He is scheduled for a bilateral SIJ injection on 07/24/21. Since he was last seen in clinic, he denies any changes in his symptoms. He continues to experience a constant aching pain all across his lower back with pain radiating into the bilateral buttocks and a burning sensation in the left lateral and anterior aspect of the thigh. He reports numbness of the left thigh. His lower back pain is worsened with standing and walking for extended periods of time. Alleviating factors include repositioning, rest, and medications. Upon assessment, patient has moderate to severe tenderness to palpation over the bilateral SIJs. He has underwent bilateral SIJ injections in [place] by Dr. Praneeth Escoto, most recently in 12/2020 with 80-90% relief lasting about six months. Records reviewed from [facility] in [place] (scanned into chart). Risks, benefits, side effects, and pre-procedure instructions reviewed with patient. Patient agreeable to plan. He is requesting refills of Lyrica, Robaxin, and Meloxiam; refill provided of all medications x 3 months. All questions answered to patient's satisfaction. Patient to f/u 2 weeks post-procedure. 06/10/21: Patient presents to clinic for a pre-procedure follow-up. He is scheduled to undergo a bilateral SIJ corticosteroid injection on 06/25/21. Since he was last seen in clinic, he denies any changes in his symptoms. He continues to experience a constant aching pain all across his lower back with pain radiating into the bilateral buttocks and a burning sensation in the left lateral and anterior aspect of the thigh. He reports numbness of the left thigh. His lower back pain is worsened with standing and walking for extended periods of time. Alleviating factors include repositioning, rest, and medications. Upon assessment, patient has moderate to severe tenderness to palpation over the bilateral SIJs. He has underwent bilateral SIJ injections in [place] by Dr. Praneeth Escoto, most recently in 12/2020 with 80-90% relief lasting about six months. Will request records from [facility] (in [place]) from Dr. Praneeth Escoto. Risks, benefits, side effects, and pre-procedure instructions reviewed with patient. Patient agreeable to plan. All questions answered to patient's satisfaction. Patient to f/u 2 weeks post-procedure. 04/24/21: Patient presents to clinic for a 1 month follow-up and medication refill. He reports fair analgesia with Lyrica, Meloxicam, and Robaxin with improvement in his QOL and functionality. He is requesting refills of all of his medications; will refill Lyrica, Meloxicam, and Robaxin x 3 months. He continues to experience a constant aching pain all across his lower back with pain radiating into the bilateral buttocks and a burning sensation in the left lateral and anterior aspect of the thigh. He reports numbness of the left thigh. His lower back pain is worsened with standing and walking for extended periods of time. Alleviating factors include repositioning, rest, and medications. Upon assessment, patient has moderate to severe tenderness to palpation over the bilateral SIJs. Will schedule patient for a bilateral SIJ corticosteroid injection. Risks, benefits, side effects, and pre-procedure instructions reviewed with patient. Patient agreeable to plan. Will plan on scheduling bilateral lumbar MBBs after patient undergoes his bilateral SIJ corticosteroid injection. All questions answered to patient's satisfaction. Patient to f/u 2 weeks post-procedure. PRIOR IMAGING/DIAGNOSTIC S: 12/27/2023 MRI lumbar spine: Compression deformity of L5 noted, mild disc desiccation at L3-4 L4-L5, grade 1 anterior listhesis of L4 over L5 L1-L2 facet arthropathy L2-L3 diffuse disc bulge, 3.3 mm, posterior protrusion indenting the ventral thecal sac, facet arthropathy, moderate to severe neuroforaminal stenosis L3-L4 diffuse disc bulge, posterior protrusion, 3.4 mm, indenting the ventral thecal sac, facet arthropathy, moderate to severe right and severe left neuroforaminal stenosis L4-L5 diffuse disc bulge due to listhesis, protrusion, 3 mm, focal T2 weighted hyperintense signal is seen in the high intensity zone of the central portion of the posterior disc, indenting the ventral thecal sac, facet arthropathy, severe right and moderate to severe left neuroforaminal stenosis L5-S1 diffuse disc bulge, posterior protrusion, 2.4 mm, indenting the ventral thecal sac, facet arthropathy, moderate left and moderate right neuroforaminal stenosis 04/13/22 Lumbar X-rays: There is a grade 1 retrolisthesis at L1-2. There is loss of intervertebral disc height which is most severe at L1-2. There is moderate facet sclerosis. 06/13/19: Thoracic spine x-rays - Mild DDD. 06/13/19: Lumbar spine x-rays - Mild scoliosis and osteophytosis. Facet joint arthropathy. 06/13/19: Lumbar spine MRI - Mild facet hypertrophy at L1-2. Minimal BB disc bulge and mild facet hypertrophy at L2-3. Minimal BB disc bulge with superimposed mild disc protrusion and facet hypertrophy at L3-4 with mild to moderate left and mild right NF narrowing. Mild BB disc bulge with moderate facet hypertrophy at L4-5 with moderate right and mild left NF narrowing and mild CC stenosis. Moderate facet hypertrophy with minimal BB disc bulge at L5-S1 with mild to moderate NF narrowing. PRIOR MEDICATIONS: Belbuca (no relief), Methocarbamol (poor relief), Tizanidine (side effects, low BP) PRIOR PHYSICAL THERAPY/HOME EXERCISE PROGRAM: Last completed in 2019 OTHER: PROCEDURES/INTERVE NTONS: SIJ injections in [place] with great pain relief ANTI-COAGULATION/A NTI-COAGULATION CLEARANCE: None Schedule - Future - lumbar TFESI vs SIJ injections Past - 03/02/24 left L5-S1 TFESI with 95% relief 11/08/23 Bilateral SIJ injection - 85% relief. 06/15/2022 L5-S1 IL DAVIN with 98% relief 04/22/22 bilateral L3-L5 MBBs with 10% relief 03/29/22 a bilateral SIJ corticosteroid injection with 95% relief 07/24/21 a bilateral SIJ corticosteroid injection with 90% relief PRESCRIPTION DRUG MONITORING PROGRAM CHECKED TODAY URINE DRUG SCREENS/TOXICOLOGY : PRN reviewed: repeat: ORAL: reviewed: POINT OF CARE TOXICOLOGY REPORT Reason for Toxicology: senior care pain meds Test Date/Time: Oxycodone (OXY): Morphine (OPI): Amphetamines (AMP): Oxazepam (BZO): Methadone (MTD): Secobarbital (BAR): Tricyclic Antidepressants (TCA): Cocaine (DUYEN): Ectasy-Methylenedi oxymethamphetamine (MDMA): D Methamphetamine (MET): Phencyclidine (PCP): Adulterants (OX, SG, pH): Risk regarding, pain medications and opiates with regards to non-compliance and interactions with other medications/substa nces including benzodiazepines/al cohol/illicit substances were discussed, the dangers of such action including but not limited to respiratory suppression and ; and the patient fully understood without additional concerns or questions. Patient was counseled not to misuse, abuse, divert, or be non-compliant with medications. Risks of addiction, dependence, and tolerance were also discussed with the patient. Non-opiate therapies to assist in decreasing opiate regimen were also offered. Risks and benefits of procedures were discussed. Risks included, but were not limited to, infection, bleeding, hematoma, nerve damage, paralysis, spinal fluid leak, headache, increase in pain, no relief of pain, allergic reaction to medication, pneumothorax, hemodynamic compromise, and . Corticosteroid side effects were discussed including weight gain, water retention, flushing (hot flashes), mood swings or insomnia, and elevated blood sugar levels in people with diabetes. Patient understands that radiation is to be used and that transient weakness may result from this procedure and he/she should not drive the day of the injection. Patient understands that any appropriate blood thinners needs to be discontinued for appropriate amount of time prior to injection but authorization/pacheco jose r from his prescribing physician must be obtained prior to discontinuing any meds. Spine model was used to illustrate how injections would be performed and to explain the disease state. Patient fully understand and comprehends the risks/benefits of the procedure. All questions were answered. Refill: The patient may have chronic, intractable pain with the diagnoses listed in the assessment. The patient may be receiving chronic opioid therapy (COT), which requires greater than a 72 hour supply of controlled substance medications. The patient has failed other conservative measures, including but not limited to adjuvant therapy, interventional pain medicine and physical therapy thus leading to COT. COT may be continued indefinitely, and the patient will be reassessed at regular office visits. Patient was instructed NOT to use heavy machinery including driving while taking opiate, muscle relaxants, or other medications which effect driving. Opiate compliance: a. Urine Drug Testing will be performed as needed to ensure patient compliance with medication prescriptions and to rule out illicit usage. The management of patients with chronic pain in a designated pain management clinic where this select population has a significant pretest probability of drug interactions and side effects. b. The [place] prescription drug Database (PDMP, E-CultureIQE) was accessed and reviewed to confirm that patient has been receiving opiate medications from physicians ONLY within this practice, unless other circumstances required such medication to be written for this patient. Medical records and history were reviewed. The patient was interviewed and examined by me. I agree with the assessment and care plan and confirm the diagnosis(es) above. 03/21/2024 Lumbar radiculopathy (ICD-10 - M54.16) 05/16/2024 Chronic pain syndrome (ICD-10 - G89.4) 05/16/24: The patient returns for a follow up visit. He reports his left lumbar radicular symptoms has increased recently. We discussed repeating the left L5-S1 TFESI. We reviewed the procedure including risks and benefits. The patient has no questions. He wants to proceed. f/u in 2 weeks post procedure. 03/21/24: The patient presents today for a post procedure follow up. He underwent a left L5-S1 TFESI on 03/02/24 and reports 95% ongoing pain relief. He has noted improved ability to ambulate and perform ADLS since the procedure. Patient reports 1 episode of axial low back pain since his procedure which resolved promptly without intervention. Patient is requesting refill of Lyrica and Methocarbamol which were provided. No questions or concerns today. He will follow up in 2 months. 02/01/24: Patient returns to clinic today to review MRI lumbar spine. Findings are documented below and have been reviewed with the patient today. We discussed Left L5-S1 TFESI for S1 radicular symptoms, if no improvement then repeat left SIJ injection. We reviewed the procedure including risks and benefits. All questions were answered. The patient wants to proceed. He reports meloxicam is not beneficial. We will change to IBU 800mg BID PRN with food or milk. Medication side effects reviewed. f/u in 2 weeks post procedure. 12/07/23: Patient presents today for a post procedure follow up visit. He reports 85% pain relief from the Bilateral SIJ injection performed on 11/08/23. He reports increased pain along his S1 dermatone. We will order an updated MRI lumbar spine for further evaluation and interventional planning. His last MRI lumbar spine was in 2019. To address his increased pain, we will prescribe a medrol dose lori. We will also refill his current medications. Medication side effects reviewed. f/u in 4 weeks for imaging review. 10/19/23: The patient returns for a follow up visit. He complains of increased SIJ pain. He is requesting repeat bilateral SIJ injections. We reviewed the procedure including risks and benefits. All questions were answered. The patient wants to proceed. f/u in 2 weeks post procedure. 06/09/23: Patient returns to clinic today for a follow up visit and medication refill. He acheives satisfactory pain relief on medications with ability to maintain a quality of life. He is requesting refills which will be sent to the pharmacy. His MRI thoracic was denied since patient has no radicular symptoms. We will cancel the MRI order. f/u in 6 months. 11/17/22: Patient presents to clinic for a 3 month follow-up and medication refill. He continues to endorse ongoing pain in the mid thoracic spine that does not radiate into the upper or lower extremities. He denies any numbness, tingling, or weakness. His thoracic back pain is aggravated by standing and walking for extended periods of time and with bending, lifting, and twisting. He has not yet been able to undergo the thoracic MRI as this was denied by [employer]. Will re-order thoracic MRI w/o contrast. He reports good analgesia with Lyrica, Meloxicam, and Robaxin; refills provided of all medications x 6 months. All questions answered to patient's satisfaction. Patient to f/u in 6 months (or sooner pending radiologic imaging). 09/08/22: Patient presents today for a follow up and imaging review. He reports ongoing pain in the mid thoracic spine without upper or lower extremity radicular pain, numbness or tingling. He was unable to obtain the previously requested Thoracic spine MRI as this was denied by Work [employer]. He has appealed this decision and is now awaiting the results of the appeal. He is taking Lyrica, Meloxicam and Robaxin which provide fair analgesia without reported side effects. . He is leaving for [place] on 09/18/22 and returning to [place] in end of October. He is requesting a paper prescription for Lyrica so that he can fill it while away. Al questions were addressed. He will follow up when he returns to [place]. 06/27/22: Patient presents today for a post procedure follow up. He underwent L5-S1 IL DAVIN on 06/15/2022 and reports 98% ongoing pain relief. He continues to endorse pain in the mid back over the mid thoracic spine that does not radiate into the upper or lower extremities. Pain is aggravated by exertional activity and alleviated with rest and medications. He has been taking Lyrica, meloxicam and methocarbamol as prescribed which provide fair analgesia without reported side effects. He is requesting a refill Lyrica and Methocarbamol. I have recommended obtaining thoracic spine MRI for further evaluation. All questions were addressed. He will follow up in 4 weeks. 05/19/22: Patient presents to clinic for a follow-up in regards to his worsening lower back pain. His previously scheduled lumbar DAVIN was not authorized by . Since he was last seen in clinic, he denies any changes in his symptoms. He continues to experience a constant aching pain all across his lower back, worse on the left, with pain radiating down the posterior aspect of the left LE to the foot. He reports weakness of the left LE. His pain is aggravated by standing and walking for extended periods of time. Alleviating factors include sitting, repositioning, medications, and rest. I have recommended the patient undergo a L5-S1 IL DAVIN left to paracentral secondary to neurological deficits as patient's pain continues to affect his QOL. Risks, benefits, side effects, and pre-procedure instructions reviewed with patient. Patient agreeable to plan. All questions answered to patient's satisfaction. Patient to f/u 2 weeks post-procedure. 04/28/22: Patient presents today for a post procedure follow-up. He underwent bilateral L3-L5 diagnostic MBB's on 04/22/2022 and reports minimal pain relief. The patient is endorsing ongoing pain in the left more than right lumbosacral spine that radiates laterally and distally into the left posterior hip/buttock and thigh. Pain is aggravated by prolonged standing and walking and minimally alleviated with sitting. He continues to take Lyrica, meloxicam and Robaxin as prescribed which provide fair analgesia without reported side effects. He is requesting refill of Meloxicam and Robaxin. Lumbar spine MRI results from 2019 were reviewed with the patient. After reviewing the patient's clinical symptomatology and today's physical findings, it is my clinical judgment that the patient could get significant benefit by proceeding with an L5-S1 interlaminar epidural steroid injection. I have described the technical aspects of the procedure using a model of the spine in clinic. Potential risks, benefits and alternatives were also discussed in detail. He is interested in proceeding at this time. All questions were addressed. He will follow up after the procedure. 04/14/22: Patient presents to clinic for a 2 week post-procedure follow-up and for imaging review. He underwent a bilateral SIJ corticosteroid injection on 03/29/22. Today, he reports 95% relief. He reports significant improvement in his SIJ-mediated pain since undergoing the SIJ injections. Today, he is here to review his lumbar X-rays. Imaging reviewed in detail with patient as below. He continues to endorse a constant aching pain in his midline lumbar spine that does not radiate into the lower extremities. 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 Alleviating factors include sitting, repositioning, and rest. Will schedule patient for diagnostic bilateral L3, L4, L5 MBBs x 2. Risks, benefits, and pre-procedure instructions reviewed with patient. Patient agreeable to plan. He reports good analgesia with Lyrica and is requesting a refill; refill provided x 3 months. All questions answered to patient's satisfaction. Patient to f/u 1 week after each lumbar MBB. 02/24/22: Patient presents to clinic for a follow-up in regards to his lower back pain and for medication refill. He recently returned from his trip to [place] and would like to obtain a refill of his Meloxicam and Methocarbamol. He reports he obtained poor relief with the previously prescribed Cyclobenzaprine and has trialed Tizanidine with his pain management in [place] with side effects of low BP and dizziness. He has since been re-started back on his Methacarbamol which he has taken years ago with good relief. Medical records from [facility] in [place], [place] available for review (scanned into chart). Refill provided of Methocarbamol and Meloxicam x 3 months. Since he was last seen in clinic, he reports his lower back has become worse over the past three months. He continues to experience a constant aching pain all across his lower back with pain radiating into the bilateral buttocks. He reports numbness of the left thigh. His lower back pain is worsened with standing and walking for extended periods of time. Alleviating factors include repositioning, rest, and medications. Upon assessment, patient has moderate to severe tenderness to palpation over the bilateral SIJs. Will schedule patient for a bilateral SIJ corticosteroid injection. Risks, benefits, side effects, and pre-procedure instructions reviewed with patient. Patient agreeable to plan. Will order new lumbar X-rays. All questions answered to patient's satisfaction. Patient to f/u 2 weeks post-procedure. 09/04/21: Patient presents to clinic for a 4 week follow-up for medication effectiveness. He reports good analgesia with Cyclobenzaprine and denies any side effects; refill provided x 3 months. He is also requesting a refill of Lyrica and Meloxicam; refill provided x 3 months of both medications. His lower back pain is stable at this time and prefers to defer undergoing any injections at this time. He is planning on going to [place] for the Summer and will be back in the fall. All questions answered to patient's satisfaction. Patient to f/u PRN (he will call when he is back in town). 08/07/21: Patient presents to clinic for a 2 week post-procedure follow-up. He underwent a bilateral SIJ corticosteroid injection on 07/24/21. Today, he reports 90% relief. He reports significant improvement in his lower back and SIJ-mediated pain since undergoing the bilateral SIJ injection. He is able to ambulate and stand for longer periods of time with less pain in his SIJs. Will consider repeating SIJ injections in the future if his pain returns. He would like to discuss obtaining a prescription for a different muscle relaxant. He is currently taking Methocarbamol 750 mg, 1-2 tablets twice a day as needed with poor analgesia. Will discontinue Methocarbamol and trial Cyclobenzaprine 10 mg 2-3 times per day PRN for muscle spasms. Side effect profile reviewed with patient. Patient agreeable to plan. All questions answered to patient's satisfaction. Patient to f/u in 4 weeks for medication effectiveness. 07/08/21: Patient presents to clinic for a pre-procedure follow-up for records review and medication refill. His bilateral SIJ injection scheduled for 06/25/21 was denied by worker's comp, however, we now have authorization to proceed with the injection. He is scheduled for a bilateral SIJ injection on 07/24/21. Since he was last seen in clinic, he denies any changes in his symptoms. He continues to experience a constant aching pain all across his lower back with pain radiating into the bilateral buttocks and a burning sensation in the left lateral and anterior aspect of the thigh. He reports numbness of the left thigh. His lower back pain is worsened with standing and walking for extended periods of time. Alleviating factors include repositioning, rest, and medications. Upon assessment, patient has moderate to severe tenderness to palpation over the bilateral SIJs. He has underwent bilateral SIJ injections in [place] by Dr. Praneeth Escoto, most recently in 12/2020 with 80-90% relief lasting about six months. Records reviewed from [facility] in [place] (scanned into chart). Risks, benefits, side effects, and pre-procedure instructions reviewed with patient. Patient agreeable to plan. He is requesting refills of Lyrica, Robaxin, and Meloxiam; refill provided of all medications x 3 months. All questions answered to patient's satisfaction. Patient to f/u 2 weeks post-procedure. 06/10/21: Patient presents to clinic for a pre-procedure follow-up. He is scheduled to undergo a bilateral SIJ corticosteroid injection on 06/25/21. Since he was last seen in clinic, he denies any changes in his symptoms. He continues to experience a constant aching pain all across his lower back with pain radiating into the bilateral buttocks and a burning sensation in the left lateral and anterior aspect of the thigh. He reports numbness of the left thigh. His lower back pain is worsened with standing and walking for extended periods of time. Alleviating factors include repositioning, rest, and medications. Upon assessment, patient has moderate to severe tenderness to palpation over the bilateral SIJs. He has underwent bilateral SIJ injections in [place] by Dr. Praneeth Escoto, most recently in 12/2020 with 80-90% relief lasting about six months. Will request records from [facility] (in [place]) from Dr. Praneeth Escoto. Risks, benefits, side effects, and pre-procedure instructions reviewed with patient. Patient agreeable to plan. All questions answered to patient's satisfaction. Patient to f/u 2 weeks post-procedure. 04/24/21: Patient presents to clinic for a 1 month follow-up and medication refill. He reports fair analgesia with Lyrica, Meloxicam, and Robaxin with improvement in his QOL and functionality. He is requesting refills of all of his medications; will refill Lyrica, Meloxicam, and Robaxin x 3 months. He continues to experience a constant aching pain all across his lower back with pain radiating into the bilateral buttocks and a burning sensation in the left lateral and anterior aspect of the thigh. He reports numbness of the left thigh. His lower back pain is worsened with standing and walking for extended periods of time. Alleviating factors include repositioning, rest, and medications. Upon assessment, patient has moderate to severe tenderness to palpation over the bilateral SIJs. Will schedule patient for a bilateral SIJ corticosteroid injection. Risks, benefits, side effects, and pre-procedure instructions reviewed with patient. Patient agreeable to plan. Will plan on scheduling bilateral lumbar MBBs after patient undergoes his bilateral SIJ corticosteroid injection. All questions answered to patient's satisfaction. Patient to f/u 2 weeks post-procedure. PRIOR IMAGING/DIAGNOSTIC S: 12/27/2023 MRI lumbar spine: Compression deformity of L5 noted, mild disc desiccation at L3-4 L4-L5, grade 1 anterior listhesis of L4 over L5 L1-L2 facet arthropathy L2-L3 diffuse disc bulge, 3.3 mm, posterior protrusion indenting the ventral thecal sac, facet arthropathy, moderate to severe neuroforaminal stenosis L3-L4 diffuse disc bulge, posterior protrusion, 3.4 mm, indenting the ventral thecal sac, facet arthropathy, moderate to severe right and severe left neuroforaminal stenosis L4-L5 diffuse disc bulge due to listhesis, protrusion, 3 mm, focal T2 weighted hyperintense signal is seen in the high intensity zone of the central portion of the posterior disc, indenting the ventral thecal sac, facet arthropathy, severe right and moderate to severe left neuroforaminal stenosis L5-S1 diffuse disc bulge, posterior protrusion, 2.4 mm, indenting the ventral thecal sac, facet arthropathy, moderate left and moderate right neuroforaminal stenosis 04/13/22 Lumbar X-rays: There is a grade 1 retrolisthesis at L1-2. There is loss of intervertebral disc height which is most severe at L1-2. There is moderate facet sclerosis. 06/13/19: Thoracic spine x-rays - Mild DDD. 06/13/19: Lumbar spine x-rays - Mild scoliosis and osteophytosis. Facet joint arthropathy. 06/13/19: Lumbar spine MRI - Mild facet hypertrophy at L1-2. Minimal BB disc bulge and mild facet hypertrophy at L2-3. Minimal BB disc bulge with superimposed mild disc protrusion and facet hypertrophy at L3-4 with mild to moderate left and mild right NF narrowing. Mild BB disc bulge with moderate facet hypertrophy at L4-5 with moderate right and mild left NF narrowing and mild CC stenosis. Moderate facet hypertrophy with minimal BB disc bulge at L5-S1 with mild to moderate NF narrowing. PRIOR MEDICATIONS: Belbuca (no relief), Methocarbamol (poor relief), Tizanidine (side effects, low BP) PRIOR PHYSICAL THERAPY/HOME EXERCISE PROGRAM: Last completed in 2019 OTHER: PROCEDURES/INTERVE NTONS: SIJ injections in [place] with great pain relief ANTI-COAGULATION/A NTI-COAGULATION CLEARANCE: None Schedule - left L5-S1 TFESI , Dr. Castle Future - lumbar TFESI vs SIJ injections Past - 03/02/24 left L5-S1 TFESI with 95% relief 11/08/23 Bilateral SIJ injection - 85% relief. 06/15/2022 L5-S1 IL DAVIN with 98% relief 04/22/22 bilateral L3-L5 MBBs with 10% relief 03/29/22 a bilateral SIJ corticosteroid injection with 95% relief 07/24/21 a bilateral SIJ corticosteroid injection with 90% relief PRESCRIPTION DRUG MONITORING PROGRAM CHECKED TODAY URINE DRUG SCREENS/TOXICOLOGY : PRN reviewed: repeat: ORAL: reviewed: POINT OF CARE TOXICOLOGY REPORT Reason for Toxicology: senior care pain meds Test Date/Time: Oxycodone (OXY): Morphine (OPI): Amphetamines (AMP): Oxazepam (BZO): Methadone (MTD): Secobarbital (BAR): Tricyclic Antidepressants (TCA): Cocaine (DUYEN): Ectasy-Methylenedi oxymethamphetamine (MDMA): D Methamphetamine (MET): Phencyclidine (PCP): Adulterants (OX, SG, pH): Risk regarding, pain medications and opiates with regards to non-compliance and interactions with other medications/substa nces including benzodiazepines/al cohol/illicit substances were discussed, the dangers of such action including but not limited to respiratory suppression and ; and the patient fully understood without additional concerns or questions. Patient was counseled not to misuse, abuse, divert, or be non-compliant with medications. Risks of addiction, dependence, and tolerance were also discussed with the patient. Non-opiate therapies to assist in decreasing opiate regimen were also offered. Risks and benefits of procedures were discussed. Risks included, but were not limited to, infection, bleeding, hematoma, nerve damage, paralysis, spinal fluid leak, headache, increase in pain, no relief of pain, allergic reaction to medication, pneumothorax, hemodynamic compromise, and . Corticosteroid side effects were discussed including weight gain, water retention, flushing (hot flashes), mood swings or insomnia, and elevated blood sugar levels in people with diabetes. Patient understands that radiation is to be used and that transient weakness may result from this procedure and he/she should not drive the day of the injection. Patient understands that any appropriate blood thinners needs to be discontinued for appropriate amount of time prior to injection but authorization/pacheco odell from his prescribing physician must be obtained prior to discontinuing any meds. Spine model was used to illustrate how injections would be performed and to explain the disease state. Patient fully understand and comprehends the risks/benefits of the procedure. All questions were answered. Refill: The patient may have chronic, intractable pain with the diagnoses listed in the assessment. The patient may be receiving chronic opioid therapy (COT), which requires greater than a 72 hour supply of controlled substance medications. The patient has failed other conservative measures, including but not limited to adjuvant therapy, interventional pain medicine and physical therapy thus leading to COT. COT may be continued indefinitely, and the patient will be reassessed at regular office visits. Patient was instructed NOT to use heavy machinery including driving while taking opiate, muscle relaxants, or other medications which effect driving. Opiate compliance: a. Urine Drug Testing will be performed as needed to ensure patient compliance with medication prescriptions and to rule out illicit usage. The management of patients with chronic pain in a designated pain management clinic where this select population has a significant pretest probability of drug interactions and side effects. b. The [place] prescription drug Database (PDMP, E-FORCerebrexE) was accessed and reviewed to confirm that patient has been receiving opiate medications from physicians ONLY within this practice, unless other circumstances required such medication to be written for this patient. Medical records and history were reviewed. The patient was interviewed and examined by me. I agree with the assessment and care plan and confirm the diagnosis(es) above. 06/01/2024 Radiculopathy, lumbar region (ICD-10 - M54.16) 06/14/2024 Chronic pain syndrome (ICD-10 - G89.4) 06/14/24: Patient presents today for a post procedure follow up visit. He underwent a left L5-S1 Transforaminal Epidural Steroid Injection on 06/01/24. He reports 80% relief. He reports he is satisfied with his degree of relief. He is indicated for lumbar spine brace. We discussed the use of the spine brace. The patient verbalized understanding. We will submit for authorization. Follow-up in 6 months for medication refill. 05/16/24: The patient returns for a follow up visit. He reports his left lumbar radicular symptoms has increased recently. We discussed repeating the left L5-S1 TFESI. We reviewed the procedure including risks and benefits. The patient has no questions. He wants to proceed. f/u in 2 weeks post procedure. 03/21/24: The patient presents today for a post procedure follow up. He underwent a left L5-S1 TFESI on 03/02/24 and reports 95% ongoing pain relief. He has noted improved ability to ambulate and perform ADLS since the procedure. Patient reports 1 episode of axial low back pain since his procedure which resolved promptly without intervention. Patient is requesting refill of Lyrica and Methocarbamol which were provided. No questions or concerns today. He will follow up in 2 months. 02/01/24: Patient returns to clinic today to review MRI lumbar spine. Findings are documented below and have been reviewed with the patient today. We discussed Left L5-S1 TFESI for S1 radicular symptoms, if no improvement then repeat left SIJ injection. We reviewed the procedure including risks and benefits. All questions were answered. The patient wants to proceed. He reports meloxicam is not beneficial. We will change to IBU 800mg BID PRN with food or milk. Medication side effects reviewed. f/u in 2 weeks post procedure. 12/07/23: Patient presents today for a post procedure follow up visit. He reports 85% pain relief from the Bilateral SIJ injection performed on 11/08/23. He reports increased pain along his S1 dermatone. We will order an updated MRI lumbar spine for further evaluation and interventional planning. His last MRI lumbar spine was in 2019. To address his increased pain, we will prescribe a medrol dose lori. We will also refill his current medications. Medication side effects reviewed. f/u in 4 weeks for imaging review. 10/19/23: The patient returns for a follow up visit. He complains of increased SIJ pain. He is requesting repeat bilateral SIJ injections. We reviewed the procedure including risks and benefits. All questions were answered. The patient wants to proceed. f/u in 2 weeks post procedure. 06/09/23: Patient returns to clinic today for a follow up visit and medication refill. He acheives satisfactory pain relief on medications with ability to maintain a quality of life. He is requesting refills which will be sent to the pharmacy. His MRI thoracic was denied since patient has no radicular symptoms. We will cancel the MRI order. f/u in 6 months. 11/17/22: Patient presents to clinic for a 3 month follow-up and medication refill. He continues to endorse ongoing pain in the mid thoracic spine that does not radiate into the upper or lower extremities. He denies any numbness, tingling, or weakness. His thoracic back pain is aggravated by standing and walking for extended periods of time and with bending, lifting, and twisting. He has not yet been able to undergo the thoracic MRI as this was denied by Workers [employer]. Will re-order thoracic MRI w/o contrast. He reports good analgesia with Lyrica, Meloxicam, and Robaxin; refills provided of all medications x 6 months. All questions answered to patient's satisfaction. Patient to f/u in 6 months (or sooner pending radiologic imaging). 09/08/22: Patient presents today for a follow up and imaging review. He reports ongoing pain in the mid thoracic spine without upper or lower extremity radicular pain, numbness or tingling. He was unable to obtain the previously requested Thoracic spine MRI as this was denied by Work [employer]. He has appealed this decision and is now awaiting the results of the appeal. He is taking Lyrica, Meloxicam and Robaxin which provide fair analgesia without reported side effects. . He is leaving for [place] on 09/18/22 and returning to [place] in end of October. He is requesting a paper prescription for Lyrica so that he can fill it while away. Al questions were addressed. He will follow up when he returns to [place]. 06/27/22: Patient presents today for a post procedure follow up. He underwent L5-S1 IL DAVIN on 06/15/2022 and reports 98% ongoing pain relief. He continues to endorse pain in the mid back over the mid thoracic spine that does not radiate into the upper or lower extremities. Pain is aggravated by exertional activity and alleviated with rest and medications. He has been taking Lyrica, meloxicam and methocarbamol as prescribed which provide fair analgesia without reported side effects. He is requesting a refill Lyrica and Methocarbamol. I have recommended obtaining thoracic spine MRI for further evaluation. All questions were addressed. He will follow up in 4 weeks. 05/19/22: Patient presents to clinic for a follow-up in regards to his worsening lower back pain. His previously scheduled lumbar DAVIN was not authorized by . Since he was last seen in clinic, he denies any changes in his symptoms. He continues to experience a constant aching pain all across his lower back, worse on the left, with pain radiating down the posterior aspect of the left LE to the foot. He reports weakness of the left LE. His pain is aggravated by standing and walking for extended periods of time. Alleviating factors include sitting, repositioning, medications, and rest. I have recommended the patient undergo a L5-S1 IL DAVIN left to paracentral secondary to neurological deficits as patient's pain continues to affect his QOL. Risks, benefits, side effects, and pre-procedure instructions reviewed with patient. Patient agreeable to plan. All questions answered to patient's satisfaction. Patient to f/u 2 weeks post-procedure. 04/28/22: Patient presents today for a post procedure follow-up. He underwent bilateral L3-L5 diagnostic MBB's on 04/22/2022 and reports minimal pain relief. The patient is endorsing ongoing pain in the left more than right lumbosacral spine that radiates laterally and distally into the left posterior hip/buttock and thigh. Pain is aggravated by prolonged standing and walking and minimally alleviated with sitting. He continues to take Lyrica, meloxicam and Robaxin as prescribed which provide fair analgesia without reported side effects. He is requesting refill of Meloxicam and Robaxin. Lumbar spine MRI results from 2019 were reviewed with the patient. After reviewing the patient's clinical symptomatology and today's physical findings, it is my clinical judgment that the patient could get significant benefit by proceeding with an L5-S1 interlaminar epidural steroid injection. I have described the technical aspects of the procedure using a model of the spine in clinic. Potential risks, benefits and alternatives were also discussed in detail. He is interested in proceeding at this time. All questions were addressed. He will follow up after the procedure. 04/14/22: Patient presents to clinic for a 2 week post-procedure follow-up and for imaging review. He underwent a bilateral SIJ corticosteroid injection on 03/29/22. Today, he reports 95% relief. He reports significant improvement in his SIJ-mediated pain since undergoing the SIJ injections. Today, he is here to review his lumbar X-rays. Imaging reviewed in detail with patient as below. He continues to endorse a constant aching pain in his midline lumbar spine that does not radiate into the lower extremities. 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 Alleviating factors include sitting, repositioning, and rest. Will schedule patient for diagnostic bilateral L3, L4, L5 MBBs x 2. Risks, benefits, and pre-procedure instructions reviewed with patient. Patient agreeable to plan. He reports good analgesia with Lyrica and is requesting a refill; refill provided x 3 months. All questions answered to patient's satisfaction. Patient to f/u 1 week after each lumbar MBB. 02/24/22: Patient presents to clinic for a follow-up in regards to his lower back pain and for medication refill. He recently returned from his trip to [place] and would like to obtain a refill of his Meloxicam and Methocarbamol. He reports he obtained poor relief with the previously prescribed Cyclobenzaprine and has trialed Tizanidine with his pain management in [place] with side effects of low BP and dizziness. He has since been re-started back on his Methacarbamol which he has taken years ago with good relief. Medical records from [facility] in [place], [place] available for review (scanned into chart). Refill provided of Methocarbamol and Meloxicam x 3 months. Since he was last seen in clinic, he reports his lower back has become worse over the past three months. He continues to experience a constant aching pain all across his lower back with pain radiating into the bilateral buttocks. He reports numbness of the left thigh. His lower back pain is worsened with standing and walking for extended periods of time. Alleviating factors include repositioning, rest, and medications. Upon assessment, patient has moderate to severe tenderness to palpation over the bilateral SIJs. Will schedule patient for a bilateral SIJ corticosteroid injection. Risks, benefits, side effects, and pre-procedure instructions reviewed with patient. Patient agreeable to plan. Will order new lumbar X-rays. All questions answered to patient's satisfaction. Patient to f/u 2 weeks post-procedure. 09/04/21: Patient presents to clinic for a 4 week follow-up for medication effectiveness. He reports good analgesia with Cyclobenzaprine and denies any side effects; refill provided x 3 months. He is also requesting a refill of Lyrica and Meloxicam; refill provided x 3 months of both medications. His lower back pain is stable at this time and prefers to defer undergoing any injections at this time. He is planning on going to [place] for the Summer and will be back in the fall. All questions answered to patient's satisfaction. Patient to f/u PRN (he will call when he is back in town). 08/07/21: Patient presents to clinic for a 2 week post-procedure follow-up. He underwent a bilateral SIJ corticosteroid injection on 07/24/21. Today, he reports 90% relief. He reports significant improvement in his lower back and SIJ-mediated pain since undergoing the bilateral SIJ injection. He is able to ambulate and stand for longer periods of time with less pain in his SIJs. Will consider repeating SIJ injections in the future if his pain returns. He would like to discuss obtaining a prescription for a different muscle relaxant. He is currently taking Methocarbamol 750 mg, 1-2 tablets twice a day as needed with poor analgesia. Will discontinue Methocarbamol and trial Cyclobenzaprine 10 mg 2-3 times per day PRN for muscle spasms. Side effect profile reviewed with patient. Patient agreeable to plan. All questions answered to patient's satisfaction. Patient to f/u in 4 weeks for medication effectiveness. 07/08/21: Patient presents to clinic for a pre-procedure follow-up for records review and medication refill. His bilateral SIJ injection scheduled for 06/25/21 was denied by worker's comp, however, we now have authorization to proceed with the injection. He is scheduled for a bilateral SIJ injection on 07/24/21. Since he was last seen in clinic, he denies any changes in his symptoms. He continues to experience a constant aching pain all across his lower back with pain radiating into the bilateral buttocks and a burning sensation in the left lateral and anterior aspect of the thigh. He reports numbness of the left thigh. His lower back pain is worsened with standing and walking for extended periods of time. Alleviating factors include repositioning, rest, and medications. Upon assessment, patient has moderate to severe tenderness to palpation over the bilateral SIJs. He has underwent bilateral SIJ injections in [place] by Dr. Praneeth Escoto, most recently in 12/2020 with 80-90% relief lasting about six months. Records reviewed from [facility] in [place] (scanned into chart). Risks, benefits, side effects, and pre-procedure instructions reviewed with patient. Patient agreeable to plan. He is requesting refills of Lyrica, Robaxin, and Meloxiam; refill provided of all medications x 3 months. All questions answered to patient's satisfaction. Patient to f/u 2 weeks post-procedure. 06/10/21: Patient presents to clinic for a pre-procedure follow-up. He is scheduled to undergo a bilateral SIJ corticosteroid injection on 06/25/21. Since he was last seen in clinic, he denies any changes in his symptoms. He continues to experience a constant aching pain all across his lower back with pain radiating into the bilateral buttocks and a burning sensation in the left lateral and anterior aspect of the thigh. He reports numbness of the left thigh. His lower back pain is worsened with standing and walking for extended periods of time. Alleviating factors include repositioning, rest, and medications. Upon assessment, patient has moderate to severe tenderness to palpation over the bilateral SIJs. He has underwent bilateral SIJ injections in [place] by Dr. Praneeth Escoto, most recently in 12/2020 with 80-90% relief lasting about six months. Will request records from [facility] (in [place]) from Dr. Praneeth Escoto. Risks, benefits, side effects, and pre-procedure instructions reviewed with patient. Patient agreeable to plan. All questions answered to patient's satisfaction. Patient to f/u 2 weeks post-procedure. 04/24/21: Patient presents to clinic for a 1 month follow-up and medication refill. He reports fair analgesia with Lyrica, Meloxicam, and Robaxin with improvement in his QOL and functionality. He is requesting refills of all of his medications; will refill Lyrica, Meloxicam, and Robaxin x 3 months. He continues to experience a constant aching pain all across his lower back with pain radiating into the bilateral buttocks and a burning sensation in the left lateral and anterior aspect of the thigh. He reports numbness of the left thigh. His lower back pain is worsened with standing and walking for extended periods of time. Alleviating factors include repositioning, rest, and medications. Upon assessment, patient has moderate to severe tenderness to palpation over the bilateral SIJs. Will schedule patient for a bilateral SIJ corticosteroid injection. Risks, benefits, side effects, and pre-procedure instructions reviewed with patient. Patient agreeable to plan. Will plan on scheduling bilateral lumbar MBBs after patient undergoes his bilateral SIJ corticosteroid injection. All questions answered to patient's satisfaction. Patient to f/u 2 weeks post-procedure. PRIOR IMAGING/DIAGNOSTIC S: 12/27/2023 MRI lumbar spine: Compression deformity of L5 noted, mild disc desiccation at L3-4 L4-L5, grade 1 anterior listhesis of L4 over L5 L1-L2 facet arthropathy L2-L3 diffuse disc bulge, 3.3 mm, posterior protrusion indenting the ventral thecal sac, facet arthropathy, moderate to severe neuroforaminal stenosis L3-L4 diffuse disc bulge, posterior protrusion, 3.4 mm, indenting the ventral thecal sac, facet arthropathy, moderate to severe right and severe left neuroforaminal stenosis L4-L5 diffuse disc bulge due to listhesis, protrusion, 3 mm, focal T2 weighted hyperintense signal is seen in the high intensity zone of the central portion of the posterior disc, indenting the ventral thecal sac, facet arthropathy, severe right and moderate to severe left neuroforaminal stenosis L5-S1 diffuse disc bulge, posterior protrusion, 2.4 mm, indenting the ventral thecal sac, facet arthropathy, moderate left and moderate right neuroforaminal stenosis 04/13/22 Lumbar X-rays: There is a grade 1 retrolisthesis at L1-2. There is loss of intervertebral disc height which is most severe at L1-2. There is moderate facet sclerosis. 06/13/19: Thoracic spine x-rays - Mild DDD. 06/13/19: Lumbar spine x-rays - Mild scoliosis and osteophytosis. Facet joint arthropathy. 06/13/19: Lumbar spine MRI - Mild facet hypertrophy at L1-2. Minimal BB disc bulge and mild facet hypertrophy at L2-3. Minimal BB disc bulge with superimposed mild disc protrusion and facet hypertrophy at L3-4 with mild to moderate left and mild right NF narrowing. Mild BB disc bulge with moderate facet hypertrophy at L4-5 with moderate right and mild left NF narrowing and mild CC stenosis. Moderate facet hypertrophy with minimal BB disc bulge at L5-S1 with mild to moderate NF narrowing. PRIOR MEDICATIONS: Belbuca (no relief), Methocarbamol (poor relief), Tizanidine (side effects, low BP) PRIOR PHYSICAL THERAPY/HOME EXERCISE PROGRAM: Last completed in 2019 OTHER: PROCEDURES/INTERVE NTONS: SIJ injections in [place] with great pain relief ANTI-COAGULATION/A NTI-COAGULATION CLEARANCE: None Schedule -Dr. Castle Future - lumbar TFESI vs SIJ injections Past - 06/01/24 left L5-S1 Transforaminal Epidural Steroid Injection - 80% relief. 03/02/24 left L5-S1 TFESI with 95% relief 11/08/23 Bilateral SIJ injection - 85% relief. 06/15/2022 L5-S1 IL DAVIN with 98% relief 04/22/22 bilateral L3-L5 MBBs with 10% relief 03/29/22 a bilateral SIJ corticosteroid injection with 95% relief 07/24/21 a bilateral SIJ corticosteroid injection with 90% relief PRESCRIPTION DRUG MONITORING PROGRAM CHECKED TODAY URINE DRUG SCREENS/TOXICOLOGY : PRN reviewed: repeat: ORAL: reviewed: POINT OF CARE TOXICOLOGY REPORT Reason for Toxicology: lobsterman pain meds Test Date/Time: Oxycodone (OXY): Morphine (OPI): Amphetamines (AMP): Oxazepam (BZO): Methadone (MTD): Secobarbital (BAR): Tricyclic Antidepressants (TCA): Cocaine (DUYEN): Ectasy-Methylenedi oxymethamphetamine (MDMA): D Methamphetamine (MET): Phencyclidine (PCP): Adulterants (OX, SG, pH): Risk regarding, pain medications and opiates with regards to non-compliance and interactions with other medications/substa nces including benzodiazepines/al cohol/illicit substances were discussed, the dangers of such action including but not limited to respiratory suppression and ; and the patient fully understood without additional concerns or questions. Patient was counseled not to misuse, abuse, divert, or be non-compliant with medications. Risks of addiction, dependence, and tolerance were also discussed with the patient. Non-opiate therapies to assist in decreasing opiate regimen were also offered. Risks and benefits of procedures were discussed. Risks included, but were not limited to, infection, bleeding, hematoma, nerve damage, paralysis, spinal fluid leak, headache, increase in pain, no relief of pain, allergic reaction to medication, pneumothorax, hemodynamic compromise, and . Corticosteroid side effects were discussed including weight gain, water retention, flushing (hot flashes), mood swings or insomnia, and elevated blood sugar levels in people with diabetes. Patient understands that radiation is to be used and that transient weakness may result from this procedure and he/she should not drive the day of the injection. Patient understands that any appropriate blood thinners needs to be discontinued for appropriate amount of time prior to injection but authorization/pacheco jose r from his prescribing physician must be obtained prior to discontinuing any meds. Spine model was used to illustrate how injections would be performed and to explain the disease state. Patient fully understand and comprehends the risks/benefits of the procedure. All questions were answered. Refill: The patient may have chronic, intractable pain with the diagnoses listed in the assessment. The patient may be receiving chronic opioid therapy (COT), which requires greater than a 72 hour supply of controlled substance medications. The patient has failed other conservative measures, including but not limited to adjuvant therapy, interventional pain medicine and physical therapy thus leading to COT. COT may be continued indefinitely, and the patient will be reassessed at regular office visits. Patient was instructed NOT to use heavy machinery including driving while taking opiate, muscle relaxants, or other medications which effect driving. Opiate compliance: a. Urine Drug Testing will be performed as needed to ensure patient compliance with medication prescriptions and to rule out illicit usage. The management of patients with chronic pain in a designated pain management clinic where this select population has a significant pretest probability of drug interactions and side effects. b. The [place] prescription drug Database (PDMP, Nephros-CultureIQE) was accessed and reviewed to confirm that patient has been receiving opiate medications from physicians ONLY within this practice, unless other circumstances required such medication to be written for this patient. Medical records and history were reviewed. The patient was interviewed and examined by me. I agree with the assessment and care plan and confirm the diagnosis(es) above. 06/18/2024 Lumbar spondylosis (ICD-10 - M47.816) 10/30/2024 Chronic pain syndrome (ICD-10 - G89.4) 10/30/2024 Patient here for transfer of care. He reports that he has his sciatica controlled with inversion table. He reports his SI pain has returned. He is leaving town for 6 weeks. He would like to repeat SIJ injection. Exam shows pos Jaspreet and Thigh thrust maneuvers. He is tender over PSIS bilaterally. We will schedule for bilateral SIJ injections. 06/14/24: Patient presents today for a post procedure follow up visit. He underwent a left L5-S1 Transforaminal Epidural Steroid Injection on 06/01/24. He reports 80% relief. He reports he is satisfied with his degree of relief. He is indicated for lumbar spine brace. We discussed the use of the spine brace. The patient verbalized understanding. We will submit for authorization. Follow-up in 6 months for medication refill. 05/16/24: The patient returns for a follow up visit. He reports his left lumbar radicular symptoms has increased recently. We discussed repeating the left L5-S1 TFESI. We reviewed the procedure including risks and benefits. The patient has no questions. He wants to proceed. f/u in 2 weeks post procedure. 03/21/24: The patient presents today for a post procedure follow up. He underwent a left L5-S1 TFESI on 03/02/24 and reports 95% ongoing pain relief. He has noted improved ability to ambulate and perform ADLS since the procedure. Patient reports 1 episode of axial low back pain since his procedure which resolved promptly without intervention. Patient is requesting refill of Lyrica and Methocarbamol which were provided. No questions or concerns today. He will follow up in 2 months. 02/01/24: Patient returns to clinic today to review MRI lumbar spine. Findings are documented below and have been reviewed with the patient today. We discussed Left L5-S1 TFESI for S1 radicular symptoms, if no improvement then repeat left SIJ injection. We reviewed the procedure including risks and benefits. All questions were answered. The patient wants to proceed. He reports meloxicam is not beneficial. We will change to IBU 800mg BID PRN with food or milk. Medication side effects reviewed. f/u in 2 weeks post procedure. 12/07/23: Patient presents today for a post procedure follow up visit. He reports 85% pain relief from the Bilateral SIJ injection performed on 11/08/23. He reports increased pain along his S1 dermatone. We will order an updated MRI lumbar spine for further evaluation and interventional planning. His last MRI lumbar spine was in 2019. To address his increased pain, we will prescribe a medrol dose lori. We will also refill his current medications. Medication side effects reviewed. f/u in 4 weeks for imaging review. 10/19/23: The patient returns for a follow up visit. He complains of increased SIJ pain. He is requesting repeat bilateral SIJ injections. We reviewed the procedure including risks and benefits. All questions were answered. The patient wants to proceed. f/u in 2 weeks post procedure. 06/09/23: Patient returns to clinic today for a follow up visit and medication refill. He acheives satisfactory pain relief on medications with ability to maintain a quality of life. He is requesting refills which will be sent to the pharmacy. His MRI thoracic was denied since patient has no radicular symptoms. We will cancel the MRI order. f/u in 6 months. 11/17/22: Patient presents to clinic for a 3 month follow-up and medication refill. He continues to endorse ongoing pain in the mid thoracic spine that does not radiate into the upper or lower extremities. He denies any numbness, tingling, or weakness. His thoracic back pain is aggravated by standing and walking for extended periods of time and with bending, lifting, and twisting. He has not yet been able to undergo the thoracic MRI as this was denied by Workers [employer]. Will re-order thoracic MRI w/o contrast. He reports good analgesia with Lyrica, Meloxicam, and Robaxin; refills provided of all medications x 6 months. All questions answered to patient's satisfaction. Patient to f/u in 6 months (or sooner pending radiologic imaging). 09/08/22: Patient presents today for a follow up and imaging review. He reports ongoing pain in the mid thoracic spine without upper or lower extremity radicular pain, numbness or tingling. He was unable to obtain the previously requested Thoracic spine MRI as this was denied by Work Comp. He has appealed this decision and is now awaiting the results of the appeal. He is taking Lyrica, Meloxicam and Robaxin which provide fair analgesia without reported side effects. . He is leaving for [place] on 09/18/22 and returning to [place] in end of October. He is requesting a paper prescription for Lyrica so that he can fill it while away. Al questions were addressed. He will follow up when he returns to [place]. 06/27/22: Patient presents today for a post procedure follow up. He underwent L5-S1 IL DAVIN on 06/15/2022 and reports 98% ongoing pain relief. He continues to endorse pain in the mid back over the mid thoracic spine that does not radiate into the upper or lower extremities. Pain is aggravated by exertional activity and alleviated with rest and medications. He has been taking Lyrica, meloxicam and methocarbamol as prescribed which provide fair analgesia without reported side effects. He is requesting a refill Lyrica and Methocarbamol. I have recommended obtaining thoracic spine MRI for further evaluation. All questions were addressed. He will follow up in 4 weeks. 05/19/22: Patient presents to clinic for a follow-up in regards to his worsening lower back pain. His previously scheduled lumbar DAVIN was not authorized by . Since he was last seen in clinic, he denies any changes in his symptoms. He continues to experience a constant aching pain all across his lower back, worse on the left, with pain radiating down the posterior aspect of the left LE to the foot. He reports weakness of the left LE. His pain is aggravated by standing and walking for extended periods of time. Alleviating factors include sitting, repositioning, medications, and rest. I have recommended the patient undergo a L5-S1 IL DAVIN left to paracentral secondary to neurological deficits as patient's pain continues to affect his QOL. Risks, benefits, side effects, and pre-procedure instructions reviewed with patient. Patient agreeable to plan. All questions answered to patient's satisfaction. Patient to f/u 2 weeks post-procedure. 04/28/22: Patient presents today for a post procedure follow-up. He underwent bilateral L3-L5 diagnostic MBB's on 04/22/2022 and reports minimal pain relief. The patient is endorsing ongoing pain in the left more than right lumbosacral spine that radiates laterally and distally into the left posterior hip/buttock and thigh. Pain is aggravated by prolonged standing and walking and minimally alleviated with sitting. He continues to take Lyrica, meloxicam and Robaxin as prescribed which provide fair analgesia without reported side effects. He is requesting refill of Meloxicam and Robaxin. Lumbar spine MRI results from 2019 were reviewed with the patient. After reviewing the patient's clinical symptomatology and today's physical findings, it is my clinical judgment that the patient could get significant benefit by proceeding with an L5-S1 interlaminar epidural steroid injection. I have described the technical aspects of the procedure using a model of the spine in clinic. Potential risks, benefits and alternatives were also discussed in detail. He is interested in proceeding at this time. All questions were addressed. He will follow up after the procedure. 04/14/22: Patient presents to clinic for a 2 week post-procedure follow-up and for imaging review. He underwent a bilateral SIJ corticosteroid injection on 03/29/22. Today, he reports 95% relief. He reports significant improvement in his SIJ-mediated pain since undergoing the SIJ injections. Today, he is here to review his lumbar X-rays. Imaging reviewed in detail with patient as below. He continues to endorse a constant aching pain in his midline lumbar spine that does not radiate into the lower extremities. 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 Alleviating factors include sitting, repositioning, and rest. Will schedule patient for diagnostic bilateral L3, L4, L5 MBBs x 2. Risks, benefits, and pre-procedure instructions reviewed with patient. Patient agreeable to plan. He reports good analgesia with Lyrica and is requesting a refill; refill provided x 3 months. All questions answered to patient's satisfaction. Patient to f/u 1 week after each lumbar MBB. 02/24/22: Patient presents to clinic for a follow-up in regards to his lower back pain and for medication refill. He recently returned from his trip to [place] and would like to obtain a refill of his Meloxicam and Methocarbamol. He reports he obtained poor relief with the previously prescribed Cyclobenzaprine and has trialed Tizanidine with his pain management in [place] with side effects of low BP and dizziness. He has since been re-started back on his Methacarbamol which he has taken years ago with good relief. Medical records from [facility] in [place], [place] available for review (scanned into chart). Refill provided of Methocarbamol and Meloxicam x 3 months. Since he was last seen in clinic, he reports his lower back has become worse over the past three months. He continues to experience a constant aching pain all across his lower back with pain radiating into the bilateral buttocks. He reports numbness of the left thigh. His lower back pain is worsened with standing and walking for extended periods of time. Alleviating factors include repositioning, rest, and medications. Upon assessment, patient has moderate to severe tenderness to palpation over the bilateral SIJs. Will schedule patient for a bilateral SIJ corticosteroid injection. Risks, benefits, side effects, and pre-procedure instructions reviewed with patient. Patient agreeable to plan. Will order new lumbar X-rays. All questions answered to patient's satisfaction. Patient to f/u 2 weeks post-procedure. 09/04/21: Patient presents to clinic for a 4 week follow-up for medication effectiveness. He reports good analgesia with Cyclobenzaprine and denies any side effects; refill provided x 3 months. He is also requesting a refill of Lyrica and Meloxicam; refill provided x 3 months of both medications. His lower back pain is stable at this time and prefers to defer undergoing any injections at this time. He is planning on going to [place] for the Summer and will be back in the fall. All questions answered to patient's satisfaction. Patient to f/u PRN (he will call when he is back in town). 08/07/21: Patient presents to clinic for a 2 week post-procedure follow-up. He underwent a bilateral SIJ corticosteroid injection on 07/24/21. Today, he reports 90% relief. He reports significant improvement in his lower back and SIJ-mediated pain since undergoing the bilateral SIJ injection. He is able to ambulate and stand for longer periods of time with less pain in his SIJs. Will consider repeating SIJ injections in the future if his pain returns. He would like to discuss obtaining a prescription for a different muscle relaxant. He is currently taking Methocarbamol 750 mg, 1-2 tablets twice a day as needed with poor analgesia. Will discontinue Methocarbamol and trial Cyclobenzaprine 10 mg 2-3 times per day PRN for muscle spasms. Side effect profile reviewed with patient. Patient agreeable to plan. All questions answered to patient's satisfaction. Patient to f/u in 4 weeks for medication effectiveness. 07/08/21: Patient presents to clinic for a pre-procedure follow-up for records review and medication refill. His bilateral SIJ injection scheduled for 06/25/21 was denied by worker's comp, however, we now have authorization to proceed with the injection. He is scheduled for a bilateral SIJ injection on 07/24/21. Since he was last seen in clinic, he denies any changes in his symptoms. He continues to experience a constant aching pain all across his lower back with pain radiating into the bilateral buttocks and a burning sensation in the left lateral and anterior aspect of the thigh. He reports numbness of the left thigh. His lower back pain is worsened with standing and walking for extended periods of time. Alleviating factors include repositioning, rest, and medications. Upon assessment, patient has moderate to severe tenderness to palpation over the bilateral SIJs. He has underwent bilateral SIJ injections in [place] by Dr. Praneeth Escoto, most recently in 12/2020 with 80-90% relief lasting about six months. Records reviewed from [facility] in [place] (scanned into chart). Risks, benefits, side effects, and pre-procedure instructions reviewed with patient. Patient agreeable to plan. He is requesting refills of Lyrica, Robaxin, and Meloxiam; refill provided of all medications x 3 months. All questions answered to patient's satisfaction. Patient to f/u 2 weeks post-procedure. 06/10/21: Patient presents to clinic for a pre-procedure follow-up. He is scheduled to undergo a bilateral SIJ corticosteroid injection on 06/25/21. Since he was last seen in clinic, he denies any changes in his symptoms. He continues to experience a constant aching pain all across his lower back with pain radiating into the bilateral buttocks and a burning sensation in the left lateral and anterior aspect of the thigh. He reports numbness of the left thigh. His lower back pain is worsened with standing and walking for extended periods of time. Alleviating factors include repositioning, rest, and medications. Upon assessment, patient has moderate to severe tenderness to palpation over the bilateral SIJs. He has underwent bilateral SIJ injections in [place] by Dr. Praneeth Escoto, most recently in 12/2020 with 80-90% relief lasting about six months. Will request records from [facility] (in [place]) from Dr. Praneeth Escoto. Risks, benefits, side effects, and pre-procedure instructions reviewed with patient. Patient agreeable to plan. All questions answered to patient's satisfaction. Patient to f/u 2 weeks post-procedure. 04/24/21: Patient presents to clinic for a 1 month follow-up and medication refill. He reports fair analgesia with Lyrica, Meloxicam, and Robaxin with improvement in his QOL and functionality. He is requesting refills of all of his medications; will refill Lyrica, Meloxicam, and Robaxin x 3 months. He continues to experience a constant aching pain all across his lower back with pain radiating into the bilateral buttocks and a burning sensation in the left lateral and anterior aspect of the thigh. He reports numbness of the left thigh. His lower back pain is worsened with standing and walking for extended periods of time. Alleviating factors include repositioning, rest, and medications. Upon assessment, patient has moderate to severe tenderness to palpation over the bilateral SIJs. Will schedule patient for a bilateral SIJ corticosteroid injection. Risks, benefits, side effects, and pre-procedure instructions reviewed with patient. Patient agreeable to plan. Will plan on scheduling bilateral lumbar MBBs after patient undergoes his bilateral SIJ corticosteroid injection. All questions answered to patient's satisfaction. Patient to f/u 2 weeks post-procedure. PRIOR IMAGING/DIAGNOSTIC S: 12/27/2023 MRI lumbar spine: Compression deformity of L5 noted, mild disc desiccation at L3-4 L4-L5, grade 1 anterior listhesis of L4 over L5 L1-L2 facet arthropathy L2-L3 diffuse disc bulge, 3.3 mm, posterior protrusion indenting the ventral thecal sac, facet arthropathy, moderate to severe neuroforaminal stenosis L3-L4 diffuse disc bulge, posterior protrusion, 3.4 mm, indenting the ventral thecal sac, facet arthropathy, moderate to severe right and severe left neuroforaminal stenosis L4-L5 diffuse disc bulge due to listhesis, protrusion, 3 mm, focal T2 weighted hyperintense signal is seen in the high intensity zone of the central portion of the posterior disc, indenting the ventral thecal sac, facet arthropathy, severe right and moderate to severe left neuroforaminal stenosis L5-S1 diffuse disc bulge, posterior protrusion, 2.4 mm, indenting the ventral thecal sac, facet arthropathy, moderate left and moderate right neuroforaminal stenosis 04/13/22 Lumbar X-rays: There is a grade 1 retrolisthesis at L1-2. There is loss of intervertebral disc height which is most severe at L1-2. There is moderate facet sclerosis. 06/13/19: Thoracic spine x-rays - Mild DDD. 06/13/19: Lumbar spine x-rays - Mild scoliosis and osteophytosis. Facet joint arthropathy. 06/13/19: Lumbar spine MRI - Mild facet hypertrophy at L1-2. Minimal BB disc bulge and mild facet hypertrophy at L2-3. Minimal BB disc bulge with superimposed mild disc protrusion and facet hypertrophy at L3-4 with mild to moderate left and mild right NF narrowing. Mild BB disc bulge with moderate facet hypertrophy at L4-5 with moderate right and mild left NF narrowing and mild CC stenosis. Moderate facet hypertrophy with minimal BB disc bulge at L5-S1 with mild to moderate NF narrowing. PRIOR MEDICATIONS: Belbuca (no relief), Methocarbamol (poor relief), Tizanidine (side effects, low BP) PRIOR PHYSICAL THERAPY/HOME EXERCISE PROGRAM: Last completed in 2019 OTHER: PROCEDURES/INTERVE NTONS: SIJ injections in [place] with great pain relief ANTI-COAGULATION/A NTI-COAGULATION CLEARANCE: None Schedule -Bilateral SIJ injections first week of December - lumbar TFESI vs SIJ injections Past - 06/01/24 left L5-S1 Transforaminal Epidural Steroid Injection - 80% relief. 03/02/24 left L5-S1 TFESI with 95% relief 11/08/23 Bilateral SIJ injection - 85% relief. 06/15/2022 L5-S1 IL DAVIN with 98% relief 04/22/22 bilateral L3-L5 MBBs with 10% relief 03/29/22 a bilateral SIJ corticosteroid injection with 95% relief 07/24/21 a bilateral SIJ corticosteroid injection with 90% relief PRESCRIPTION DRUG MONITORING PROGRAM CHECKED TODAY URINE DRUG SCREENS/TOXICOLOGY : PRN reviewed: repeat: ORAL: reviewed: POINT OF CARE TOXICOLOGY REPORT Reason for Toxicology: senior care pain meds Test Date/Time: Oxycodone (OXY): Morphine (OPI): Amphetamines (AMP): Oxazepam (BZO): Methadone (MTD): Secobarbital (BAR): Tricyclic Antidepressants (TCA): Cocaine (DUYEN): Ectasy-Methylenedi oxymethamphetamine (MDMA): D Methamphetamine (MET): Phencyclidine (PCP): Adulterants (OX, SG, pH): Risk regarding, pain medications and opiates with regards to non-compliance and interactions with other medications/substa nces including benzodiazepines/al cohol/illicit substances were discussed, the dangers of such action including but not limited to respiratory suppression and ; and the patient fully understood without additional concerns or questions. Patient was counseled not to misuse, abuse, divert, or be non-compliant with medications. Risks of addiction, dependence, and tolerance were also discussed with the patient. Non-opiate therapies to assist in decreasing opiate regimen were also offered. Risks and benefits of procedures were discussed. Risks included, but were not limited to, infection, bleeding, hematoma, nerve damage, paralysis, spinal fluid leak, headache, increase in pain, no relief of pain, allergic reaction to medication, pneumothorax, hemodynamic compromise, and . Corticosteroid side effects were discussed including weight gain, water retention, flushing (hot flashes), mood swings or insomnia, and elevated blood sugar levels in people with diabetes. Patient understands that radiation is to be used and that transient weakness may result from this procedure and he/she should not drive the day of the injection. Patient understands that any appropriate blood thinners needs to be discontinued for appropriate amount of time prior to injection but authorization/pacheco jose r from his prescribing physician must be obtained prior to discontinuing any meds. Spine model was used to illustrate how injections would be performed and to explain the disease state. Patient fully understand and comprehends the risks/benefits of the procedure. All questions were answered. Refill: The patient may have chronic, intractable pain with the diagnoses listed in the assessment. The patient may be receiving chronic opioid therapy (COT), which requires greater than a 72 hour supply of controlled substance medications. The patient has failed other conservative measures, including but not limited to adjuvant therapy, interventional pain medicine and physical therapy thus leading to COT. COT may be continued indefinitely, and the patient will be reassessed at regular office visits. Patient was instructed NOT to use heavy machinery including driving while taking opiate, muscle relaxants, or other medications which effect driving. Opiate compliance: a. Urine Drug Testing will be performed as needed to ensure patient compliance with medication prescriptions and to rule out illicit usage. The management of patients with chronic pain in a designated pain management clinic where this select population has a significant pretest probability of drug interactions and side effects. b. The [place] prescription drug Database (PDMP, E-FORE) was accessed and reviewed to confirm that patient has been receiving opiate medications from physicians ONLY within this practice, unless other circumstances required such medication to be written for this patient. Medical records and history were reviewed. The patient was interviewed and examined by me. I agree with the assessment and care plan and confirm the diagnosis(es) above. 06/14/2024 Lumbar radiculopathy (ICD-10 - M54.16) 06/01/2024 Other intervertebral disc displacement, lumbar region (ICD-10 - M51.26) 05/16/2024 Lumbar radiculopathy (ICD-10 - M54.16) 03/21/2024 Thoracic spondylosis (ICD-10 - M47.814) 02/01/2024 Thoracic spondylosis (ICD-10 - M47.814) 10/30/2024 Lumbar radiculopathy (ICD-10 - M54.16) 02/01/2024 Lumbar radiculopathy (ICD-10 - M54.16) 10/30/2024 Thoracic spondylosis (ICD-10 - M47.814) 03/21/2024 Lumbar spondylosis (ICD-10 - M47.816) 05/16/2024 Thoracic spondylosis (ICD-10 - M47.814) 06/01/2024 Other intervertebral disc degeneration, lumbar region with discogenic back pain and lower extremity pain (ICD-10 - M51.362) 06/14/2024 Thoracic spondylosis (ICD-10 - M47.814) 06/14/2024 Lumbar spondylosis (ICD-10 - M47.816) 03/21/2024 Lumbar facet arthropathy (ICD-10 - M12.88) 05/16/2024 Lumbar spondylosis (ICD-10 - M47.816) 10/30/2024 Lumbar spondylosis (ICD-10 - M47.816) 02/01/2024 Lumbar spondylosis (ICD-10 - M47.816) 10/30/2024 Lumbar facet arthropathy (ICD-10 - M12.88) 03/21/2024 DDD (degenerative disc disease), lumbar (ICD-10 - M51.36) 02/01/2024 Lumbar facet arthropathy (ICD-10 - M12.88) 06/14/2024 Lumbar facet arthropathy (ICD-10 - M12.88) 05/16/2024 Lumbar facet arthropathy (ICD-10 - M12.88) 05/16/2024 DDD (degenerative disc disease), lumbar (ICD-10 - M51.36) 06/14/2024 DDD (degenerative disc disease), lumbar (ICD-10 - M51.36) 03/21/2024 Sacroiliitis (ICD-10 - M46.1) 02/01/2024 DDD (degenerative disc disease), lumbar (ICD-10 - M51.36) 10/30/2024 DDD (degenerative disc disease), lumbar (ICD-10 - M51.36) 02/01/2024 Sacroiliitis (ICD-10 - M46.1) 10/30/2024 Sacroiliitis (ICD-10 - M46.1) 05/16/2024 Sacroiliitis (ICD-10 - M46.1) 06/14/2024 Sacroiliitis (ICD-10 - M46.1) 10/30/2024 Spondylosis without myelopathy or radiculopathy, lumbar region (ICD-10 - M47.816) Medical Necessity For Lumbar-Sacral Orthosis Lumbar-sacral orthosis (LSO), sagittal-coronal control, with rigid anterior and posterior frame/panel(s), posterior extends from sacrococcygeal junction to T-9 vertebra, lateral strength provided by rigid lateral frame/panel(s), produces intracavitary pressure to reduce load on intervertebral discs, includes straps, closures, may include padding, shoulder straps, pendulous abdomen design, prefabricated, [id number], and/or Lumbar-sacral orthosis (LSO), sagittal control, with rigid anterior and posterior panels, posterior extends from sacrococcygeal junction to T-9 vertebra, produces intracavitary pressure to reduce load on the intervertebral discs, includes straps, closures, may include padding, shoulder straps, pendulous abdomen design, prefabricated, [id number] Patient is experiencing increased lumbosacral pain and instability. The patient is ambulatory, and reports experiencing pain, pressure, stiffness, and instability in the lumbosacral for more than 1 year. In the past patient has tried exercise, losing weight, and medical intervention. The patient will benefit from the use of a lumbosacral brace. A lumbosacral orthosis provides compression and support around the lower back and prevents the lumbosacral spine from moving excessively. The patient wraps it around the lower back and tightens it using straps on the sides of the brace. This orthosis has rigid anterior and posterior panels. The posterior panel extends from the sacrococcygeal junction, or tailbone area, to just below the ninth thoracic vertebra, or T9. The additional strength and support is provided by a rigid lateral panel. This orthosis increases intracavitary pressure in the abdomen that creates space between the vertebrae and transfers loads from the intervertebral discs to the surrounding soft tissues, reducing pain in the spine. This orthosis can have a pendulous abdomen design with an extra strap to provide support when the muscles of the anterior abdominal wall become relaxed and allow the abdomen to hang down. It is a prefabricated orthosis, available off the shelf. Examination Results For Medical Necessity: - Lumbosacral pain and swelling - Antalgic gait - Pain on weight bearing - Limited ROM - Pain interferes with ADLs even with the use of medication- Abnormal curves of the spine- Abnormal wear on the cartilage and bones of the lower spine, such as bone spurs and narrowing of the joints between the vertebrae - Signs of thinning bones (osteoporosis)- Spinal stenosis - narrowing of the spinal column - Sciatica - Slipped or herniated disc - Spondylolisthesis, in which a bone (vertebra) in the lower part of the spine slips out of the proper position onto the bone below it Medical Justification: - To reduce pain on affected area by restricting mobility of the trunk, and reduce the lumbosacral load. - To otherwise support weak spinal muscles and/or a deformed spine. - Brace is needed for senior care wear to increase function. - Produces intracavitary pressure to reduce load and the vertebral disks. - Brace needed for activities of daily living. Expect to see significant improvement in pain and physical function, preventing or reducing regenerative changes in the lumbosacral allowing patients to return to reasonable activities which may help them maintain a healthy weight, and help them preserve the long-term visibility of the lumbosacral spine. This brace has been clinically proven to improve a patient's function and decrease pain medication usage and NSAIDs usage that can have negative side effects. I am prescribing a clinically appropriate orthotic appliance that adheres to accepted medical standards and practices in the treatment of this condition, and is a part of a medically necessary treatment for the patient's well-being. 06/14/2024 Spondylosis without myelopathy or radiculopathy, lumbar region (ICD-10 - M47.816) Medical Necessity For Lumbar-Sacral Orthosis Lumbar-sacral orthosis (LSO), sagittal-coronal control, with rigid anterior and posterior frame/panel(s), posterior extends from sacrococcygeal junction to T-9 vertebra, lateral strength provided by rigid lateral frame/panel(s), produces intracavitary pressure to reduce load on intervertebral discs, includes straps, closures, may include padding, shoulder straps, pendulous abdomen design, prefabricated, [id number], and/or Lumbar-sacral orthosis (LSO), sagittal control, with rigid anterior and posterior panels, posterior extends from sacrococcygeal junction to T-9 vertebra, produces intracavitary pressure to reduce load on the intervertebral discs, includes straps, closures, may include padding, shoulder straps, pendulous abdomen design, prefabricated, [id number] Patient is experiencing increased lumbosacral pain and instability. The patient is ambulatory, and reports experiencing pain, pressure, stiffness, and instability in the lumbosacral for more than 1 year. In the past patient has tried exercise, losing weight, and medical intervention. The patient will benefit from the use of a lumbosacral brace. A lumbosacral orthosis provides compression and support around the lower back and prevents the lumbosacral spine from moving excessively. The patient wraps it around the lower back and tightens it using straps on the sides of the brace. This orthosis has rigid anterior and posterior panels. The posterior panel extends from the sacrococcygeal junction, or tailbone area, to just below the ninth thoracic vertebra, or T9. The additional strength and support is provided by a rigid lateral panel. This orthosis increases intracavitary pressure in the abdomen that creates space between the vertebrae and transfers loads from the intervertebral discs to the surrounding soft tissues, reducing pain in the spine. This orthosis can have a pendulous abdomen design with an extra strap to provide support when the muscles of the anterior abdominal wall become relaxed and allow the abdomen to hang down. It is a prefabricated orthosis, available off the shelf. Examination Results For Medical Necessity: - Lumbosacral pain and swelling - Antalgic gait - Pain on weight bearing - Limited ROM - Pain interferes with ADLs even with the use of medication- Abnormal curves of the spine- Abnormal wear on the cartilage and bones of the lower spine, such as bone spurs and narrowing of the joints between the vertebrae - Signs of thinning bones (osteoporosis)- Spinal stenosis - narrowing of the spinal column - Sciatica - Slipped or herniated disc - Spondylolisthesis, in which a bone (vertebra) in the lower part of the spine slips out of the proper position onto the bone below it Medical Justification: - To reduce pain on affected area by restricting mobility of the trunk, and reduce the lumbosacral load. - To otherwise support weak spinal muscles and/or a deformed spine. - Brace is needed for lobsterman wear to increase function. - Produces intracavitary pressure to reduce load and the vertebral disks. - Brace needed for activities of daily living. Expect to see significant improvement in pain and physical function, preventing or reducing regenerative changes in the lumbosacral allowing patients to return to reasonable activities which may help them maintain a healthy weight, and help them preserve the long-term visibility of the lumbosacral spine. This brace has been clinically proven to improve a patient's function and decrease pain medication usage and NSAIDs usage that can have negative side effects. I am prescribing a clinically appropriate orthotic appliance that adheres to accepted medical standards and practices in the treatment of this condition, and is a part of a medically necessary treatment for the patient's well-being. 03/02/2024 Other LT L5/S1 Transforaminal Epidural Steroid Injection In Room: 948 Start:956 Stop:1003 Out Room:1005 Fluro time: 22 Patient prepped sterile to dry. Post procedure dressing applied. 0.9% Sodium Chloride INJ SNF 10ml SDV NDC: 8920-19342-93 LOT:[id number] EXP:04/10 Lidocaine HCL 1% 10 mg/mL 50 mL vial NDC:1754-7276-70 LOT:[id number] EXP:08/10 Omnipaque, Iohexol 240 mgI/ml 50ml NDC# 5914-5913-50 LOT# [id number] EXP:04/12 Dexamethasone Sodium Phosphate 10mg/ml 1ml SNF NDC:[address]-90 LOT:[id number] EXP:08/1006/01/2024 Other LT L5/S1 Transforaminal Epidural Steroid Injection In Room: 801 Start: 807 Stop: 815 Out Room: 818 Fluro time: 28 Patient prepped sterile to dry. Post procedure dressing applied. 0.9% Sodium Chloride INJ SNF 10ml SDV NDC: 3613-1654-65 LOT# [id number] EXP: 04/11 Lidocaine HCL 1% 10 mg/mL 50 mL vial NDC:0181-4198-03 LOT:[id number] EXP:08/10 Omnipaque, Iohexol 240 mgI/ml 50ml NDC# 0680-1564-71 LOT# [id number] EXP: 12/12 Dexamethasone Sodium Phosphate 10mg/ml 1ml SNF NDC:2935-7937-36 LOT# [id number] EXP: 12/11 Plan Of Treatment Pending Test Test Name Order Date X ray : Spines, lumbar complete 02/25/20 MRI : Lumbar without contrast 12/07/2023 MRI : Thoracic without Contrast 07/08/19 MRI : Thoracic without Contrast 09/09/19 MRI : Thoracic without Contrast 11/18/19 DME LSO - Please dispense LS O brace for this patient for the below diagnosis. 06/18/2024 Insurance Providers Payer Name Payer Address Payer Phone Subscriber Number Group Number Insured Name Patient Relationship to Insured Coverage Start Date Coverage End Date [facility] [address] [facility] [address] [place] [address] [id number] Holden Magaña Self - patient is the insured Medical (General) History Medical History History ICD Code Bronchitis Chicken pox pneumonia High blood pressure Surgical History Surgery Date(Month/Year) Intradiscal electro thermoplasty 2000 Hospitalization History Reason Date(Month/Year)
--- NOTE | 2024-12-07 15:17 | PC.NURSE ---
Pt BIBA after falling approx 4 ft from ladder, left arm swelling and deformity noted with + CMS. Also reports injury to right ankle, swelling and redness noted. + pedal pulse and CMS. Reports 9/10 pain to both LUE and RLE, medicated per MAR with moderate effect. X-rays pending.
[2024-12-07] MEDS: BUPivacaine MPF 0.25 % 10 ML VIAL 20 ML INFILTRATI (15:36)
[2024-12-07] MEDS: diazePAM 10 MG/2 ML CARTRIDGE IVPUSH (16:28)
[2024-12-07 16:30] VITALS: BP 117/75; PULSE 83; RESP 16; O2SAT 93
[2024-12-07 18:45] VITALS: BP 128/76; PULSE 92; RESP 18; TEMP 36.7; O2SAT 95
--- NOTE | 2024-12-07 19:06 | PHA.MEDREC ---
Addendum entered by Aiden Watson RPh 12/07/24 19:57: Reviewed by [facility]. Pt does not know the D3 dose at this time. Original Note: Pharmacy Consult ? Medication Reconciliation Pharmacy has completed the medication reconciliation. Spoke with pt and he confirmed his medications. Pt confirmed his Losartan recently changed from 100mg QD to 50mg QD about 1 month ago. Pt no longer taking Ozempic; pt found out about something about the med and stopped it ~1 week ago. Pt confirmed he takes his Testosterone oil once a week on Wednesdays and took it this past Tuesday.
[2024-12-07 19:31] LABS: MANUAL DIFF FLAG NO
[2024-12-07 19:33] LABS: Hematocrit 45.3 % (42.0-52.0); Hemoglobin 16.2 g/dl (14.0-18.0); Imm Gran Abs Auto 0.05 X10*3/uL (0.00-0.03); Imm Gran Pct Auto 0.4 % (0.0-0.4); Lymphocytes Absolute Auto 1.4 X10*3/uL (1.2-4.9); Mean Corpuscular HGB Conc 35.8 g/dl (31.0-36.0); Mean Corpuscular Hemoglobin 30.8 pg (27.0-33.0); Mean Corpuscular Volume 86.1 fL (80.0-98.0); NRBC Abs Auto 0.000 X10*3/uL (0.0-0.012); NRBC Pct Auto 0.0 /100WBC (0.0-0.2); Platelet Count 190 X10*3/uL (160-400); Red Blood Count 5.26 X10*6/uL (4.60-5.80); White Blood Count 13.5 X10*3/uL (4.8-10.8)
[2024-12-07] MEDS: Lactated Ringers 1,000 ML 100 ML IVCONT (19:55)
[2024-12-07 19:56] LABS: Alanine Aminotransferase 26 U/L (0-40); Albumin Level 4.6 g/dL (3.5-5.0); Alkaline Phosphatase 52 U/L (39-117); Anion Gap 18 (12-20); Aspartate Amino Transferase 48 U/L (5-37); Blood Urea Nitrogen 17 mg/dL (9-16); Calcium 9.6 mg/dL (8.4-10.2); Carbon Dioxide 27 mmol/L (22-29); Chloride 101 mmol/L (96-108); Creatinine Clr Calc Pharmacy 110.1; Estimated Glomerular Filt Rate > 60; Potassium 2.9 mmol/L (3.3-5.1); Sodium 143 mmol/L (135-145); Total Protein 7.6 g/dL (6.5-8.0)
[2024-12-07 19:57] VITALS: RESP 18
--- NOTE | 2024-12-07 19:57 | PC.NURSE ---
Addendum entered by Joanna Deluca RN 12/07/24 19:59: admitting provider Sayda at bedside, verbally made aware of lab value, will order replacement. Original Note: Took critical value - K 2.9 from lab. Primary RN Kim made aware.
--- NOTE | 2024-12-07 20:04 | HO.PM.IMCN ---
History of Present Illness Data of Consult Service Date: 12/07/24 Requesting physician: Bethany Hall Primary Care Provider: Unknown Physician HPI Reason for consult: medical mgmt Patient is a 59-year-old male with past medical history hypertension, chronic pain disorder on Suboxone, fibromyalgia, anxiety, urinary hesitancy secondary to Suboxone with no history of prostate issues, multiple chronic back issues was seen in the emergency department after being brought in by ambulance secondary to falling from a ladder while working on his mother's home removing wells from the roof. Patient injured his left wrist and right ankle. Patient reported no loss of consciousness with no head or neck pain. Patient also denied any chest pain or abdominal pain. Patient presented with deformities in both the left wrist in the right ankle. Patient stated Dilaudid was helping with his pain management noting he is on Suboxone. Left Wrist Injury: Acute comminuted impacted and dorsally angulated fracture, distal epiphysis and metaphysis left radius. Right Ankle Injury: Acute, laterally displaced eversion bimalleolar fracture or dislocation, left ankle. Probable a Wagoner C Patient underwent orthopedic fracture reduction for both the wrist and the ankle injuries. Patient was seen by Orthopedics and there is plan for surgery in the a.m.. Hospitalist was consulted for medical management. Pharmacy completed medication reconciliation in the this was completed by this freelance writer. Patient's Suboxone has been confirmed. Patient resides in [place] and is currently visiting with his mother and was planning on returning home December 16. Review of Systems Review of Systems: Patient denies any specific pain in the left wrist or right ankle. Patient states the Dilaudid is been helpful. Patient denies any chest pain, shortness of breath at rest or with exertion. Patient is currently retired with no specific limitations but does have chronic back issues and chronic pain disorder. Yes all other systems are reviewed and are negative [facility] Medical History (Updated 12/07/24 @ 22:16 by BECKI Nunez) Hypertension Opioid dependence Opioid dependence Thoracic radiculopathy Spondylosis of lumbar spine Disc degeneration, lumbar Chronic, continuous use of opioids Chronic pain syndrome Thoracic spine pain Low back pain Cognitive capacity: Alert and orientated x3 Functional capacity: wheelchair bound (Status post right ankle injury) Social History Household Members: Spouse Housing: House Do you presently have visiting nurse or other home services: No Patient Tobacco Use Status: Former Tobacco user Smoked in Last 30 Days: No e-Cigarette/Vaping Use: Never Used Use of substances other than those prescribed or required for medical reasons: No Have you been hit, kicked, punched, or otherwise hurt by someone within the past year? If so, by whom?: No Do you feel safe in your current relationship?: No Is there a partner from a previous relationship who is making you feel unsafe now?: No Are you made to feel afraid or neglected: No Advance Directives: No Advance Directives Information Provided: Yes Do you have a plan to hurt others: No Plan Recently lost weight without trying: No How much weight loss: Not applicable Eating poorly because of decreased appetite: No Nutrition screen score: 0 Nutrition Risks: No Nutritional Risk Poor oral hygiene: No Ebola Risk: Travel/Contact With Anyone From Affected Area/s: No Has Patient Experienced Ebola Symptoms: No Meds Allergies Allergy/AdvReac Type Severity Reaction Status Date / Time glipizide Allergy Severe N/V for 5 Verified 12/07/24 14:52 days pentazocine (From [facility]) Allergy Severe Very rapid Verified 12/07/24 14:52 HR and high BP Active Medications: Current Medications Acetaminophen (Acetaminophen 325 Mg Tablet) 650 mg PO Q6H PRN PRN Reason: Pain, Mild 1-3,fever,headache Calcium Carbonate (Calcium Carbonate 750 Mg Tab.Chew) 750 mg PO Q4H PRN PRN Reason: Heartburn Celecoxib (Celecoxib 200 Mg Capsule) 200 mg PO BID HIGINIO Hydromorphone HCl (Hydromorphone Hcl 0.5 Mg/0.5 Ml Syringe) 0.5 mg IVPUSH Q4H PRN; Protocol PRN Reason: Pain, Severe (Pain Scale 7-10) Last Admin: 12/07/24 19:57 Dose: 0.5 mg Lactated Ringer's (Lr) 1,000 mls @ 100 mls/hr IVCONT .Q10H HIGINIO Last Admin: 12/07/24 19:55 Dose: 100 mls/hr Cefazolin Sodium/Dextrose (Ancef) 2 gm in 50 mls @ 100 mls/hr IV PREOP ONE Stop: 12/08/24 08:29 Magnesium Hydroxide (Milk Of Magnesia 30 Ml Oral.Susp) 30 ml PO DAILY PRN PRN Reason: Constipation Ondansetron HCl (Ondansetron Hcl 4 Mg/2 Ml Vial) 4 mg IVPUSH Q8H PRN PRN Reason: Nausea and Vomiting Oxycodone HCl (Oxycodone Hcl Immed Release 5 Mg Tablet) 10 mg PO Q4H PRN PRN Reason: Pain, Moderate(Pain Scale 4-6) Oxycodone HCl (Oxycodone Hcl Er 10 Mg Tab.Er.12h) 10 mg PO BID HIGINIO Potassium Chloride (Potassium Chloride Er 20 Meq Tab.Er.Prt) 40 meq PO ONCE ONE Stop: 12/07/24 20:03 Senna (Sennosides 8.6 Mg Tablet) 17.2 mg PO BEDTIME HIGINIO Sodium Chloride (0.9 % Sodium Chloride Flush 3 Ml Syringe) 3 ml IVFLUSH QSHIFT [facility] Home Medications ?Medication ?Instructions ?Recorded ?Confirmed ?Last Taken ?Type chlorthalidone 25 mg tablet 25 mg PO DAILY 01/24/20 12/07/24 12/07/24 History testosterone cypionate 200 mg/mL 200 mg IM WE 01/24/20 12/07/24 12/07/24 History intramuscular oil clonazepam 0.5 mg tablet 0.5 mg PO TID PRN Anxiety 09/18/21 12/07/24 Unknown History Cinculin (Trunature) 500 mg PO DAILY 12/07/24 12/07/24 12/07/24 History L.acidophil-L.casei-B.bifid-B.longum-FOS 1 cap PO DAILY 12/07/24 12/07/24 12/07/24 History 2 billion cell-50 mg capsule (Probiotic Blend) Vitamin D3 1 tab PO DAILY 12/07/24 12/07/24 12/07/24 History ascorbic acid (vitamin C) 1,000 mg 1,000 mg PO DAILY 12/07/24 12/07/24 12/07/24 History tablet (Vitamin C) cyanocobalamin (vitamin B-12) 1,000 mcg PO DAILY 12/07/24 12/07/24 12/07/24 History 1,000 mcg tablet (Vitamin B-12) docusate sodium 100 mg tablet 300 mg PO BEDTIME 12/07/24 12/07/24 12/06/24 History glucosamine HCl 1,500 mg tablet 1,500 mg PO DAILY 12/07/24 12/07/24 12/07/24 History ibuprofen 800 mg tablet 800 mg PO BID PRN Pain 12/07/24 12/07/24 Unknown History losartan 50 mg tablet 50 mg PO DAILY 12/07/24 12/07/24 12/07/24 History omega 8-otq-nhu-fish oil 1,000 mg 1 cap PO DAILY 12/07/24 12/07/24 12/07/24 History (120 mg-180 mg) capsule (Fish Oil) polyethylene glycol 3350 17 21.25 g PO BEDTIME 12/07/24 12/07/24 12/07/24 History gram/dose oral powder (Miralax) pumpkin seed extract 500 mg capsule 1,000 mg PO DAILY 12/07/24 12/07/24 12/07/24 History Physical Exam Vital Signs and Narrative: Vital Signs: Last Vital Signs Temp 98.1 F 12/07/24 18:45 Pulse 92 12/07/24 18:45 Resp 18 12/07/24 19:57 BP 128/76 12/07/24 18:45 Pulse Ox 95 12/07/24 18:45 O2 Del Method Room Air 12/07/24 18:45 BMI result Body Mass Index 31.5 Alert and orientated X3, able to give good history. Neuro: CN II-X11 intact, no deficits, visual acuity intact EYES: PERRLA, EOM intact, sclerae nonicteric, glasses on ENT: hearing intact, no issues with swallowing, uvula midline, lips moist, nares patent no epistaxis Cardiac: S1 S2 RRR, no murmur, no JVD, no edema in L Lower ext Pulmonary: lungs clear to auscultation B Abdominal: BS active in all 4 quadrants, no guarding, tenderness, rebounding MSK: strength 5/5 upper and L lower extremities : no CVA tenderness no bladder distension Extremities: no edema in L lower extremity, PT and DP pulses palpable +2 right ankle currently casted, left wrist currently casted in sling neurovascular normal Psych: mood stable, judgement and insight good Results Labs 12/07/24 19:16 12/07/24 19:16 Labs: Laboratory Results - last 24 hr 12/07/24 19:16 MCV 86.1 MCH 30.8 MCHC 35.8 RDW 12.7 Plt Count 190 MPV 10.3 Immature Gran % (Auto) 0.4 Neut % (Auto) 85.5 H Lymph % (Auto) 10.1 L Cowley % (Auto) 3.5 Eos % (Auto) 0.1 Baso % (Auto) 0.4 Lymph # (Auto) 1.4 Cowley # (Auto) 0.5 Eos # (Auto) 0.0 Baso # (Auto) 0.1 Abs Immat Gran (auto) 0.05 H Absolute Neuts (auto) 11.6 H Absolute Nucleated RBC 0.000 Nucleated RBC % (auto) 0.0 Anion Gap 18 Estim Creat Clear Calc 110.1 Estimated GFR > 60 Random Glucose 113 Calcium 9.6 Total Bilirubin 0.8 Direct Bilirubin 0.3 AST 48 H ALT 26 Alkaline Phosphatase 52 Total Protein 7.6 Albumin 4.6 ECG Attestation: I personally reviewed and interpreted this ECG as follows: (Sinus rhythm first-degree with a AZ of 216 and a normal QTC of 425) Prior ECG tracings: available for review Imaging Radiologist's Impressions: Impressions Wrist X-Ray 12/07/24 14:20 IMPRESSION: Acute comminuted impacted and dorsally angulated fracture, distal epiphysis and metaphysis left radius. Electronically signed by: Chaz Johnson MD 12/07/2024 03:42 PM EDT RP Ankle X-Ray 12/07/24 14:26 IMPRESSION: Acute, laterally displaced eversion bimalleolar fracture or dislocation, left ankle. Probable a Wagoner C Electronically signed by: Chaz Johnson MD 12/07/2024 03:41 PM EDT RP Assessment and Plan (1) Hypokalemia: Status: Acute (2) Hypertension: Qualifiers: Hypertension type: primary hypertension Qualified Code(s): I10 - Essential (primary) hypertension Status: Acute (3) Chronic pain syndrome: Status: Acute Plan Patient is a 59-year-old male with past medical history hypertension, chronic pain disorder on Suboxone, fibromyalgia, anxiety, urinary hesitancy secondary to Suboxone with no history of prostate issues, multiple chronic back issues was seen in the emergency department after being brought in by ambulance secondary to falling from a ladder while working on his mother's home removing wells from the roof. Patient injured his left wrist and right ankle. Patient reported no loss of consciousness with no head or neck pain. Patient also denied any chest pain or abdominal pain. Patient presented with deformities in both the left wrist in the right ankle. Patient stated Dilfranciscoid was helping with his pain management noting he is on Suboxone. Pt resides from [place] and is currently visiting with his mother and family. Pt planned on returning to [place] December 16. Left Wrist Injury: Acute comminuted impacted and dorsally angulated fracture, distal epiphysis and metaphysis left radius. Right Ankle Injury: Acute, laterally displaced eversion bimalleolar fracture or dislocation, left ankle. Probable a Wagoner C Medical Problems: Hypokalemia K 2.9 Supplementation provided Hold chlorthalidone/ HCTZ BMP daily Telemetry HTN Continue losartan and hold chlorthalidone/HCTZ due to low K Hydralazine prn Low Na diet Status post acute left wrist injury with right ankle injury Management per orthopedics Pain management ordered per Orthopedic ANcef per ortho Chronic pain syndrome/ fibromyalagia with multple spine issues Continue Suboxone Tylenol PRN No NSAIDs Urinary retention associated with suboxone use, no hx of prostate issues Monitor via bladder scan as needed UA ordered First Degree AVB Incidental non consequential Telemetry Patient not currently on 80 ace blockers Would not prevent surgery in the a.m. and does not require cardiac clearance TSH and Mag are pending Hospitalist group will continue to monitor this patient through surgery to ensure medical needs are being met. Please reach out to us with any questions or concerns thank you.
--- NOTE | 2024-12-07 20:09 | PC.NURSE ---
RN and provider both in the room with pt when critical K+ lab for pt came in. K+ 2.9. RN waiting for med orders.
[2024-12-07] MEDS: Potassium Chloride ER 20 MEQ TAB.ER.PRT 40 MEQ PO (20:31)
[2024-12-07 21:42] VITALS: BP 166/68; PULSE 86; RESP 18; TEMP 36.2; O2SAT 97; BMI 31.6
[2024-12-07] MEDS: oxyCODONE HCl ER 10 MG TAB.ER.12H PO (22:19)
--- NOTE | 2024-12-07 22:45 | MHC.PIE ---
p; pt arrived from ED complaint of pain 8 out of 10 note prn 0.5 Dilaudid Q4 given at 1999. Note pt report not change in pain post Dilaudid 0.5. Note pt also asking for miralax at night. I; Dr Dawit phelan new order Dilaudid 1mg prn for pain. Miralax at bed time e; medication given will continue to monitor.
[2024-12-07 22:49] LABS: Magnesium 2.0 mg/dL (1.6-2.6)
[2024-12-07 23:04] LABS: Free T4 (Free Thyroxine) 0.98 ng/dL (0.71-1.85); Thyroid Stimulating Hormone 0.83 uIU/mL (0.32-4.0)
[2024-12-08] VITALS (11 sets, daily range): BP systolic 102–132; BP diastolic 63–80; PULSE 60–88; RESP 14–18; TEMP 36.2–37.3; O2SAT 92–99
[2024-12-08] MEDS: oxyCODONE HCl Immed Release 5 MG TABLET 10 MG PO ×2 (02:22→17:50)
[2024-12-08] MEDS: Lactated Ringers 1,000 ML 100 ML IVCONT ×2 (03:25→15:15)
--- NOTE | 2024-12-08 04:44 | PC.NURSE ---
0040 pt complaining of pain, pt reports Dilaudid is not working, states pain to left wrist without relief, left wrist assessed cap refill WNL , pt able to feel touch, able to move fingers. Ice pack offered and placed educated pt 15min on 15min off.. notified new order of Dilaudid 1mg IV now. Dilaudid given pt states no relief. Pt offered alternative pain medications, pt stated he did not want any more pain medications at the moment. Will continue to monitor.
[2024-12-08 06:36] LABS: MANUAL DIFF FLAG NO
[2024-12-08 06:39] LABS: Hematocrit 37.0 % (42.0-52.0); Hemoglobin 13.3 g/dl (14.0-18.0); Imm Gran Abs Auto 0.03 X10*3/uL (0.00-0.03); Imm Gran Pct Auto 0.3 % (0.0-0.4); Lymphocytes Absolute Auto 1.7 X10*3/uL (1.2-4.9); Mean Corpuscular HGB Conc 35.9 g/dl (31.0-36.0); Mean Corpuscular Hemoglobin 30.9 pg (27.0-33.0); Mean Corpuscular Volume 86.0 fL (80.0-98.0); NRBC Abs Auto 0.000 X10*3/uL (0.0-0.012); NRBC Pct Auto 0.0 /100WBC (0.0-0.2); Platelet Count 184 X10*3/uL (160-400); Red Blood Count 4.30 X10*6/uL (4.60-5.80); White Blood Count 9.4 X10*3/uL (4.8-10.8)
[2024-12-08 07:14] LABS: Anion Gap 12 (12-20); Blood Urea Nitrogen 16 mg/dL (9-16); Carbon Dioxide 29 mmol/L (22-29); Chloride 103 mmol/L (96-108); Creatinine Clr Calc Pharmacy 126.2; Estimated Glomerular Filt Rate > 60; Potassium 3.0 mmol/L (3.3-5.1); Sodium 141 mmol/L (135-145)
[2024-12-08 07:36] LABS: Calcium 8.7 mg/dL (8.4-10.2)
--- NOTE | 2024-12-08 07:52 | P.PNIM_ITS ---
Subjective Subjective Date of Service: 12/08/24 Interval History: seen and examined this morning follow up for medical consultation potassium remains low Difficulty sleeping overnight particularly to left arm pain No chest pain, shortness of breath, abdominal pain Review of Systems Review of Systems: Yes all other systems are reviewed and are negative Constitutional Constitutional: Denies chills and Denies fever(s) Cardiovascular Cardiovascular: Denies chest pain, Denies palpitations and Denies dyspnea Respiratory Respiratory: Denies cough and Denies dyspnea Gastrointestinal Gastrointestinal: Denies abdominal pain, Denies diarrhea and Denies vomiting Endocrine Endocrine: Denies palpitations Physical Exam 2 Vital Signs: Vital Signs: Last Vital Signs Temp 97.4 F 12/08/24 07:30 Pulse 77 12/08/24 07:30 Resp 16 12/08/24 07:30 BP 102/63 12/08/24 07:30 Pulse Ox 95 12/08/24 07:30 O2 Del Method Room Air 12/08/24 07:30 BMI result Body Mass Index 31.6 Const: General: cooperative, alert and awake Nutritional Appearance: a verage body habitus Orientation/consciousness: patient oriented x3 Resp: Effort & Inspection: normal respiratory effort, able to speak in complete sentences, no respiratory distress and no use of accessory muscles Cardio: Rate: regular rate GI: Inspection: No distended Palpation (GI): Soft to palpation Neuro: General: patient oriented x3 and CN's II-XI intact bilaterally Extrem: Other: right ankle/lower leg and left wrist splited Objective Data Active Medications Acetaminophen (Acetaminophen 325 Mg Tablet) 650 mg PO Q6H PRN PRN Reason: Pain, Mild 1-3,fever,headache Last Admin: 12/08/24 02:21 Dose: 650 mg Documented By: EDILSON Ascorbic Acid (Ascorbic Acid 500 Mg Tablet) 1,000 mg PO DAILY [facility] Buprenorphine/Naloxone (Buprenorphine/Naloxone 8/2 Mg Film) 1 film SUBLINGUAL TID [facility] Calcium Carbonate (Calcium Carbonate 750 Mg Tab.Chew) 750 mg PO Q4H PRN PRN Reason: Heartburn Celecoxib (Celecoxib 200 Mg Capsule) 200 mg PO BID [facility] Last Admin: 12/07/24 22:21 Dose: 200 mg Documented By: EDILSON Clonazepam (Clonazepam 0.5 Mg Tablet) 0.5 mg PO TID PRN PRN Reason: Anxiety Cyanocobalamin (Cyanocobalamin (Vitamin B-12) 1,000 Mcg Tablet) 1,000 mcg PO DAILY [facility] Docusate Sodium (Docusate Sodium 100 Mg Capsule) 300 mg PO BEDTIME [facility] Hydralazine HCl (Hydralazine Hcl 20 Mg/Ml Vial) 10 mg IVPUSH Q6H PRN; Protocol PRN Reason: SBP > 160 Hydromorphone HCl (Hydromorphone Hcl 0.5 Mg/0.5 Ml Syringe) 1 mg IVPUSH Q4H PRN; Protocol PRN Reason: Pain, Severe (Pain Scale 7-10) Last Admin: 12/08/24 04:05 Dose: 1 mg Documented By: EDILSON Lactated Ringer's (Lr) 1,000 mls @ 100 mls/hr IVCONT .Q10H [facility] Last Admin: 12/08/24 03:25 Dose: 100 mls/hr Documented By: EDILSON Cefazolin Sodium/Dextrose (Ancef) 2 gm in 50 mls @ 100 mls/hr IV PREOP ONE Stop: 12/08/24 08:29 Losartan Potassium (Losartan Potassium 50 Mg Tablet) 50 mg PO DAILY [facility]; Protocol Magnesium Hydroxide (Milk Of Magnesia 30 Ml Oral.Susp) 30 ml PO DAILY PRN PRN Reason: Constipation Ondansetron HCl (Ondansetron Hcl 4 Mg/2 Ml Vial) 4 mg IVPUSH Q8H PRN PRN Reason: Nausea and Vomiting Oxycodone HCl (Oxycodone Hcl Immed Release 5 Mg Tablet) 10 mg PO Q4H PRN PRN Reason: Pain, Moderate(Pain Scale 4-6) Last Admin: 12/08/24 02:22 Dose: 10 mg Documented By: EDILSON Oxycodone HCl (Oxycodone Hcl Er 10 Mg Tab.Er.12h) 10 mg PO BID [facility] Last Admin: 12/07/24 22:19 Dose: 10 mg Documented By: EDILSON Polyethylene Glycol (Polyethylene Glycol 3350 17 Gm Powd.Pack) 17 gm PO BEDTIME [facility] Potassium Chloride (Potassium Chloride Er 20 Meq Tab.Er.Prt) 60 meq PO DAILY [facility] Pregabalin (Pregabalin 75 Mg Capsule) 225 mg PO Q12H [facility] Last Admin: 12/07/24 22:23 Dose: Not Given Documented By: EDILSON Non-Admin Reason: Patient Refused Senna (Sennosides 8.6 Mg Tablet) 17.2 mg PO BEDTIME [facility] Last Admin: 12/07/24 22:21 Dose: 17.2 mg Documented By: EDILSON Sodium Chloride (0.9 % Sodium Chloride Flush 3 Ml Syringe) 3 ml IVFLUSH QSHIFT [facility] Last Admin: 12/07/24 22:23 Dose: Not Given Documented By: EDILSON Non-Admin Reason: IV Running Vitamin D (Cholecalciferol (Vitamin D3) 10 Mcg Tablet) 10 mcg PO DAILY [facility] Labs 12/08/24 05:52 12/08/24 05:52 Labs: Laboratory Results - last 24 hr 12/07/24 12/08/24 19:16 05:52 MCV 86.1 86.0 MCH 30.8 30.9 MCHC 35.8 35.9 RDW 12.7 12.9 Plt Count 190 184 MPV 10.3 10.8 Immature Gran % (Auto) 0.4 0.3 Neut % (Auto) 85.5 H 72.9 Lymph % (Auto) 10.1 L 18.5 L [place] % (Auto) 3.5 6.7 Eos % (Auto) 0.1 1.1 Baso % (Auto) 0.4 0.5 Lymph # (Auto) 1.4 1.7 [place] # (Auto) 0.5 0.6 Eos # (Auto) 0.0 0.1 Baso # (Auto) 0.1 0.1 Abs Immat Gran (auto) 0.05 H 0.03 Absolute Neuts (auto) 11.6 H 6.8 Absolute Nucleated RBC 0.000 0.000 Nucleated RBC % (auto) 0.0 0.0 Anion Gap 18 12 Estim Creat Clear Calc 110.1 126.2 Estimated GFR > 60 > 60 Random Glucose 113 Fasting Glucose 108 H Calcium 9.6 8.7 D Magnesium 2.0 Total Bilirubin 0.8 Direct Bilirubin 0.3 AST 48 H ALT 26 Alkaline Phosphatase 52 Total Protein 7.6 Albumin 4.6 TSH 0.83 Free T4 0.98 Blood Type O Positive Antibody Screen NEGATIVE Assessment and Plan (1) Hypokalemia: Status: Acute (2) Chronic, continuous use of opioids: Status: Acute Plan This is a 59-year-old male with past medical history hypertension, chronic pain disorder on Suboxone, fibromyalgia, anxiety, urinary hesitancy secondary to Suboxone with no history of prostate issues, multiple chronic back issues was seen in the emergency department after being brought in by ambulance secondary to falling from a ladder while working on his mother's home removing wells from the roof. Patient injured his left wrist and right ankle. Patient reported no loss of consciousness with no head or neck pain. Patient also denied any chest pain or abdominal pain. Patient presented with deformities in both the left wrist in the right ankle. Patient stated Lucy was helping with his pain management noting he is on Suboxone. Pt resides from [place] and is currently visiting with his mother and family. Pt planned on returning to [place] December 16. left wrist fx; Right ankle fx Management per orthopedic surgery Hypokalemia K 3.0 mag 2.0 will give 60 po k this am Hold chlorthalidone/ HCTZ follow BMP HTN will hold losartan due to soft bp hold chlorthalidone/HCTZ due to low K Hydralazine prn Chronic pain / fibromyalagia Suboxone on hold as per orthopedic request Tylenol PRN No NSAIDs Urinary retention associated with suboxone use, no hx of prostate issues Monitor via bladder scan as needed First Degree AVB Incidental non consequential Patient not currently on 80 ace blockers Would not prevent surgery in the a.m. and does not require cardiac clearance Thank you for allowing us to participate in the care of this patient. We will follow along with you. Quality Stroke Does the patient have a stroke diagnosis?: No VTE Prior VTE?: No VTE Risk Level:: Medical - moderate - high VTE Device Contraindication: Treatment Not Indicated VTE Drug Contraindication: Treatment Not Indicated
--- NOTE | 2024-12-08 08:16 | PM.CNOR ---
History of Present Illness HPI Consult date: 12/07/24 Chief complaint: left wrist fx, rt ankle fx Narrative: Mr. Magaña is a 59yo male who presented to the Emergency Department after sustaining a fall off of a ladder. He had a noticeable deformity of the right ankle and left wrist. He has a PMH significant for chronic pain on Suboxone. X-rays obtained of the right ankle revealed a significant trimal fx which was reduced in the ED and x-rays of the left wrist revealed a comminuted distal radius fracture which was also reduced by the ED. Both the ankle and wrist were splinted and the patient was admitted to the orthopedic service for management. Of note, the patient is here visiting on vacation. He resides in [place]. Review of Systems Review of Systems: Yes all other systems are reviewed and are negative [facility] Past Medical History Medical History (Updated 12/07/24 @ 22:16 by BECKI Nunez) Hypertension Opioid dependence Opioid dependence Thoracic radiculopathy Spondylosis of lumbar spine Disc degeneration, lumbar Chronic, continuous use of opioids Chronic pain syndrome Thoracic spine pain Low back pain Social History Social History Household Members: Spouse Housing: House Do you presently have visiting nurse or other home services: No Patient Tobacco Use Status: Former Tobacco user Smoked in Last 30 Days: No e-Cigarette/Vaping Use: Never Used Use of substances other than those prescribed or required for medical reasons: No Currently Displaying Signs/Symptoms of Drug Intoxication Withdrawal: No Have you been hit, kicked, punched, or otherwise hurt by someone within the past year? If so, by whom?: No Do you feel safe in your current relationship?: No Is there a partner from a previous relationship who is making you feel unsafe now?: No Are you made to feel afraid or neglected: No Advance Directives: No Advance Directives Information Provided: Yes Do you have a plan to hurt others: No Plan Recently lost weight without trying: No How much weight loss: Not applicable Eating poorly because of decreased appetite: No Nutrition screen score: 0 Nutrition Risks: No Nutritional Risk Poor oral hygiene: No Travel History Ebola Risk: Travel/Contact With Anyone From Affected Area/s: No Has Patient Experienced Ebola Symptoms: No Meds Allergies Allergy/AdvReac Type Severity Reaction Status Date / Time glipizide Allergy Severe N/V for 5 Verified 12/07/24 14:52 days pentazocine (From Talwin) Allergy Severe Very rapid Verified 12/07/24 14:52 HR and high BP Active Medications: Current Medications Acetaminophen (Acetaminophen 325 Mg Tablet) 650 mg PO Q6H PRN PRN Reason: Pain, Mild 1-3,fever,headache Last Admin: 12/08/24 02:21 Dose: 650 mg Ascorbic Acid (Ascorbic Acid 500 Mg Tablet) 1,000 mg PO DAILY [facility] Buprenorphine/Naloxone (Buprenorphine/Naloxone 8/2 Mg Film) 1 film SUBLINGUAL TID [facility] Calcium Carbonate (Calcium Carbonate 750 Mg Tab.Chew) 750 mg PO Q4H PRN PRN Reason: Heartburn Celecoxib (Celecoxib 200 Mg Capsule) 200 mg PO BID [facility] Last Admin: 12/07/24 22:21 Dose: 200 mg Clonazepam (Clonazepam 0.5 Mg Tablet) 0.5 mg PO TID PRN PRN Reason: Anxiety Cyanocobalamin (Cyanocobalamin (Vitamin B-12) 1,000 Mcg Tablet) 1,000 mcg PO DAILY [facility] Docusate Sodium (Docusate Sodium 100 Mg Capsule) 300 mg PO BEDTIME [facility] Hydralazine HCl (Hydralazine Hcl 20 Mg/Ml Vial) 10 mg IVPUSH Q6H PRN; Protocol PRN Reason: SBP > 160 Hydromorphone HCl (Hydromorphone Hcl 0.5 Mg/0.5 Ml Syringe) 1 mg IVPUSH Q4H PRN; Protocol PRN Reason: Pain, Severe (Pain Scale 7-10) Last Admin: 12/08/24 04:05 Dose: 1 mg Lactated Ringer's (Lr) 1,000 mls @ 100 mls/hr IVCONT .Q10H [facility] Last Admin: 12/08/24 03:25 Dose: 100 mls/hr Cefazolin Sodium/Dextrose (Ancef) 2 gm in 50 mls @ 100 mls/hr IV PREOP ONE Stop: 12/08/24 08:29 Losartan Potassium (Losartan Potassium 50 Mg Tablet) 50 mg PO DAILY [facility]; Protocol Magnesium Hydroxide (Milk Of Magnesia 30 Ml Oral.Susp) 30 ml PO DAILY PRN PRN Reason: Constipation Ondansetron HCl (Ondansetron Hcl 4 Mg/2 Ml Vial) 4 mg IVPUSH Q8H PRN PRN Reason: Nausea and Vomiting Oxycodone HCl (Oxycodone Hcl Immed Release 5 Mg Tablet) 10 mg PO Q4H PRN PRN Reason: Pain, Moderate(Pain Scale 4-6) Last Admin: 12/08/24 02:22 Dose: 10 mg Oxycodone HCl (Oxycodone Hcl Er 10 Mg Tab.Er.12h) 10 mg PO BID [facility] Last Admin: 12/07/24 22:19 Dose: 10 mg Polyethylene Glycol (Polyethylene Glycol 3350 17 Gm Powd.Pack) 17 gm PO BEDTIME [facility] Potassium Chloride (Potassium Chloride Er 20 Meq Tab.Er.Prt) 60 meq PO DAILY [facility] Pregabalin (Pregabalin 75 Mg Capsule) 225 mg PO Q12H [facility] Last Admin: 12/07/24 22:23 Dose: Not Given Senna (Sennosides 8.6 Mg Tablet) 17.2 mg PO BEDTIME [facility] Last Admin: 12/07/24 22:21 Dose: 17.2 mg Sodium Chloride (0.9 % Sodium Chloride Flush 3 Ml Syringe) 3 ml IVFLUSH QSHIFT [facility] Last Admin: 12/07/24 22:23 Dose: Not Given Vitamin D (Cholecalciferol (Vitamin D3) 10 Mcg Tablet) 10 mcg PO DAILY [facility] Home Medications ?Medication ?Instructions ?Recorded ?Confirmed ?Last Taken ?Type chlorthalidone 25 mg tablet 25 mg PO DAILY 01/24/20 12/07/24 12/07/24 History testosterone cypionate 200 mg/mL 200 mg IM WE 01/24/20 12/07/24 12/07/24 History intramuscular oil clonazepam 0.5 mg tablet 0.5 mg PO TID PRN Anxiety 09/18/21 12/07/24 Unknown History Cinculin (Trunature) 500 mg PO DAILY 12/07/24 12/07/24 12/07/24 History L.acidophil-L.casei-B.bifid-B.longum-FOS 1 cap PO DAILY 12/07/24 12/07/24 12/07/24 History 2 billion cell-50 mg capsule (Probiotic Blend) Vitamin D3 1 tab PO DAILY 12/07/24 12/07/24 12/07/24 History ascorbic acid (vitamin C) 1,000 mg 1,000 mg PO DAILY 12/07/24 12/07/24 12/07/24 History tablet (Vitamin C) cyanocobalamin (vitamin B-12) 1,000 mcg PO DAILY 12/07/24 12/07/24 12/07/24 History 1,000 mcg tablet (Vitamin B-12) docusate sodium 100 mg tablet 300 mg PO BEDTIME 12/07/24 12/07/24 12/06/24 History glucosamine HCl 1,500 mg tablet 1,500 mg PO DAILY 12/07/24 12/07/24 12/07/24 History ibuprofen 800 mg tablet 800 mg PO BID PRN Pain 12/07/24 12/07/24 Unknown History losartan 50 mg tablet 50 mg PO DAILY 12/07/24 12/07/24 12/07/24 History omega 4-lvi-txu-fish oil 1,000 mg 1 cap PO DAILY 12/07/24 12/07/24 12/07/24 History (120 mg-180 mg) capsule (Fish Oil) polyethylene glycol 3350 17 21.25 g PO BEDTIME 12/07/24 12/07/24 12/07/24 History gram/dose oral powder (Miralax) pumpkin seed extract 500 mg capsule 1,000 mg PO DAILY 12/07/24 12/07/24 12/07/24 History Physical Exam Vital Signs: Vital Signs: Last Vital Signs Temp 97.4 F 12/08/24 07:30 Pulse 77 12/08/24 07:30 Resp 16 12/08/24 07:30 BP 102/63 12/08/24 07:30 Pulse Ox 95 12/08/24 07:30 O2 Del Method Room Air 12/08/24 07:30 BMI result Body Mass Index 31.6 Const: General: cooperative, healthy appearing and no acute distress Resp: Effort & Inspection: normal respiratory effort and able to speak in complete sentences Extrem: Other: Right ankle: Splint intact. Splint taken down to see skin: skin intact. No evidence of open fracture. Able to slightly dorsiflex and plantar flex but significantly limited due to pain. Sensation intact. Pedal pulse intact. Left wrist: Splint intact. Able to move all digits. Edema in the hand and digits. Sensation intact. Capillary refill brisk. Psych: Appearance: grossly normal Mental Status: mental status grossly normal Attitude: cooperative Results Labs 12/08/24 05:52 12/08/24 05:52 Labs: Abnormal lab results 12/07/24 12/08/24 Range/Units 19:16 05:52 WBC 13.5 H (4.8-10.8) X10*3/uL RBC 4.30 L (4.60-5.80) X10*6/uL Hgb 13.3 L (14.0-18.0) g/dl Hct 37.0 L (42.0-52.0) % Neut % (Auto) 85.5 H (45-73) % Lymph % (Auto) 10.1 L 18.5 L (20-40) % Abs Immat Gran (auto) 0.05 H (0.00-0.03) X10*3/uL Absolute Neuts (auto) 11.6 H (2.0-8.3) x10*3/uL Potassium 2.9 L* 3.0 L (3.3-5.1) mmol/L BUN 17 H (9-16) mg/dL Fasting Glucose 108 H (60-99) mg/dL AST 48 H (5-37) U/L H & H 12/07/24 12/08/24 Range/Units 19:16 05:52 Hgb 16.2 13.3 L (14.0-18.0) g/dl Hct 45.3 37.0 L (42.0-52.0) % All other labs normal. Assessment and Plan (1) Closed displaced trimalleolar fracture of right ankle: Status: Acute (2) Closed fracture of left wrist: Status: Acute (3) Chronic, continuous use of opioids: Status: Acute (4) Chronic pain syndrome: Status: Acute Plan I discussed the case with Dr. Mendiola who was also available to see the patient and explained the extent of the injury to the patient and options available which include surgical intervention. Dr. Mendiola explained the procedure in detail along with the length of recovery and rehab course. Dr. Mendiola explained the risk, benefits and alternatives. Risk including, but not limited to infection, blood clots, bleeding, non union or malunion and nerve/tissue damage to surrounding areas. Dr. Mendiola answered all their questions and with their understanding they have consented to move forward with Operative Fixation of the right ankle and left wrist. The patient has been NPO after midnight. We will first move forward with ORIF on the right ankle as there is concern of pain management if both the wrist and ankle ORIF's are performed simultaneously. Procedures Date of Service Date of Service: 12/08/24
[2024-12-08] MEDS: oxyCODONE HCl ER 10 MG TAB.ER.12H PO ×2 (08:41→20:50)
[2024-12-08] MEDS: Cholecalciferol (Vitamin D3) 10 MCG TABLET PO (08:41)
[2024-12-08] MEDS: Potassium Chloride ER 20 MEQ TAB.ER.PRT 60 MEQ PO (08:43)
[2024-12-08] MEDS: 0.9 % Sodium Chloride Flush 3 ML SYRINGE IVFLUSH (08:43)
--- NOTE | 2024-12-08 09:12 | MHC.SHP ---
Pre-Procedural Eval Section A - 24 Hr Update-Section A only Date of Service: 12/08/24 The patient is an INPATIENT: Yes Changes since office visit: No Cold of Flu in the past 2 weeks, No New Medical Problems, No Changes in Medication and No Patient answered all questions The patient has been examined within 24 hours of the surgical procedure. The History & Physical has been completed within 30 days and I have reviewed it.: Yes Section B - Complete if H&P > 30 days Chief Complaint: left wrist fx, rt ankle fx Allergies: Allergies Allergy/AdvReac Type Severity Reaction Status Date / Time glipizide Allergy Severe N/V for 5 Verified 12/07/24 14:52 days pentazocine (From Talwin) Allergy Severe Very rapid Verified 12/07/24 14:52 HR and high BP Plan I have reviewed the history and physical and performed a pertinent physical examination on my patient. No changes have occurred unless specified. Time Spent With Patient Time: Total time managing care of this patient today ____ minutes.
--- NOTE | 2024-12-08 09:25 | PC.NURSE ---
Patient taken off unit by OR staff for OR Procedure.
--- NOTE | 2024-12-08 10:47 | HO.ANESPROP2 ---
[facility] Active Problems Active Problems: All Active Problems Hypertension (Acute) Hypokalemia (Acute) Closed displaced trimalleolar fracture of right ankle (Acute) Closed fracture of left wrist (Acute) Fibromyalgia (Acute) Bilateral sacroiliitis (Acute) Muscle spasm (Acute) Facet arthropathy, lumbosacral (Acute) Opioid dependence (Acute) Thoracic radiculopathy (Acute) Spondylosis of lumbar spine (Acute) Disc degeneration, lumbar (Acute) Chronic, continuous use of opioids (Acute) Chronic pain syndrome (Acute) Thoracic spine pain (Acute) Low back pain (Acute) Past Medical History Medical History Hypertension Opioid dependence Opioid dependence Thoracic radiculopathy Spondylosis of lumbar spine Disc degeneration, lumbar Chronic, continuous use of opioids Chronic pain syndrome Thoracic spine pain Low back pain Functional capacity: independent ambulation (Status post right ankle injury) Family History Family history of problems with anesthesia: No Surgical History History of Problems with Anesthesia: No Social History Social History Household Members: Spouse Housing: House Do you presently have visiting nurse or other home services: No Patient Tobacco Use Status: Former Tobacco user Smoked in Last 30 Days: No e-Cigarette/Vaping Use: Never Used Use of substances other than those prescribed or required for medical reasons: No Currently Displaying Signs/Symptoms of Drug Intoxication Withdrawal: No Have you been hit, kicked, punched, or otherwise hurt by someone within the past year? If so, by whom?: No Do you feel safe in your current relationship?: No Is there a partner from a previous relationship who is making you feel unsafe now?: No Are you made to feel afraid or neglected: No Advance Directives: No Advance Directives Information Provided: Yes Do you have a plan to hurt others: No Plan Recently lost weight without trying: No How much weight loss: Not applicable Eating poorly because of decreased appetite: No Nutrition screen score: 0 Nutrition Risks: No Nutritional Risk Poor oral hygiene: No Meds Allergies Allergy/AdvReac Type Severity Reaction Status Date / Time glipizide Allergy Severe N/V for 5 Verified 12/07/24 14:52 days pentazocine (From [place]) Allergy Severe Very rapid Verified 12/07/24 14:52 HR and high BP Active Medications: Current Medications Acetaminophen (Acetaminophen 325 Mg Tablet) 650 mg PO Q6H PRN PRN Reason: Pain, Mild 1-3,fever,headache Last Admin: 12/08/24 02:21 Dose: 650 mg Ascorbic Acid (Ascorbic Acid 500 Mg Tablet) 1,000 mg PO DAILY [facility] Last Admin: 12/08/24 08:41 Dose: 1,000 mg Buprenorphine/Naloxone (Buprenorphine/Naloxone 8/2 Mg Film) 1 film SUBLINGUAL TID [facility] Last Admin: 12/08/24 08:50 Dose: Not Given Calcium Carbonate (Calcium Carbonate 750 Mg Tab.Chew) 750 mg PO Q4H PRN PRN Reason: Heartburn Celecoxib (Celecoxib 200 Mg Capsule) 200 mg PO BID [facility] Last Admin: 12/08/24 08:43 Dose: 200 mg Clonazepam (Clonazepam 0.5 Mg Tablet) 0.5 mg PO TID PRN PRN Reason: Anxiety Cyanocobalamin (Cyanocobalamin (Vitamin B-12) 1,000 Mcg Tablet) 1,000 mcg PO DAILY [facility] Last Admin: 12/08/24 08:41 Dose: 1,000 mcg Docusate Sodium (Docusate Sodium 100 Mg Capsule) 300 mg PO BEDTIME [facility] Hydralazine HCl (Hydralazine Hcl 20 Mg/Ml Vial) 10 mg IVPUSH Q6H PRN; Protocol PRN Reason: SBP > 160 Hydromorphone HCl (Hydromorphone Hcl 0.5 Mg/0.5 Ml Syringe) 1 mg IVPUSH Q4H PRN; Protocol PRN Reason: Pain, Severe (Pain Scale 7-10) Last Admin: 12/08/24 04:05 Dose: 1 mg Lactated Ringer's (Lr) 1,000 mls @ 100 mls/hr IVCONT .Q10H [facility] Last Admin: 12/08/24 03:25 Dose: 100 mls/hr Losartan Potassium (Losartan Potassium 50 Mg Tablet) 50 mg PO DAILY [facility]; Protocol On Hold: 12/08/24 09:00 Magnesium Hydroxide (Milk Of Magnesia 30 Ml Oral.Susp) 30 ml PO DAILY PRN PRN Reason: Constipation Ondansetron HCl (Ondansetron Hcl 4 Mg/2 Ml Vial) 4 mg IVPUSH Q8H PRN PRN Reason: Nausea and Vomiting Oxycodone HCl (Oxycodone Hcl Immed Release 5 Mg Tablet) 10 mg PO Q4H PRN PRN Reason: Pain, Moderate(Pain Scale 4-6) Last Admin: 12/08/24 02:22 Dose: 10 mg Oxycodone HCl (Oxycodone Hcl Er 10 Mg Tab.Er.12h) 10 mg PO BID [facility] Last Admin: 12/08/24 08:41 Dose: 10 mg Polyethylene Glycol (Polyethylene Glycol 3350 17 Gm Powd.Pack) 17 gm PO BEDTIME [facility] Potassium Chloride (Potassium Chloride Er 20 Meq Tab.Er.Prt) 60 meq PO DAILY [facility] Last Admin: 12/08/24 08:43 Dose: 60 meq Pregabalin (Pregabalin 75 Mg Capsule) 225 mg PO Q12H [facility] Last Admin: 12/08/24 09:19 Dose: Not Given Senna (Sennosides 8.6 Mg Tablet) 17.2 mg PO BEDTIME [facility] Last Admin: 12/07/24 22:21 Dose: 17.2 mg Sodium Chloride (0.9 % Sodium Chloride Flush 3 Ml Syringe) 3 ml IVFLUSH QSHIFT [facility] Last Admin: 12/08/24 08:43 Dose: 3 ml Vitamin D (Cholecalciferol (Vitamin D3) 10 Mcg Tablet) 10 mcg PO DAILY [facility] Last Admin: 12/08/24 08:41 Dose: 10 mcg Home Medications ?Medication ?Instructions ?Recorded ?Confirmed ?Last Taken ?Type chlorthalidone 25 mg tablet 25 mg PO DAILY 01/24/20 12/07/24 12/07/24 History testosterone cypionate 200 mg/mL 200 mg IM WE 01/24/20 12/07/24 12/07/24 History intramuscular oil clonazepam 0.5 mg tablet 0.5 mg PO TID PRN Anxiety 09/18/21 12/07/24 Unknown History Cinculin (Trunature) 500 mg PO DAILY 12/07/24 12/07/24 12/07/24 History L.acidophil-L.casei-B.bifid-B.longum-FOS 1 cap PO DAILY 12/07/24 12/07/24 12/07/24 History 2 billion cell-50 mg capsule (Probiotic Blend) Vitamin D3 1 tab PO DAILY 12/07/24 12/07/24 12/07/24 History ascorbic acid (vitamin C) 1,000 mg 1,000 mg PO DAILY 12/07/24 12/07/24 12/07/24 History tablet (Vitamin C) cyanocobalamin (vitamin B-12) 1,000 mcg PO DAILY 12/07/24 12/07/24 12/07/24 History 1,000 mcg tablet (Vitamin B-12) docusate sodium 100 mg tablet 300 mg PO BEDTIME 12/07/24 12/07/24 12/06/24 History glucosamine HCl 1,500 mg tablet 1,500 mg PO DAILY 12/07/24 12/07/24 12/07/24 History ibuprofen 800 mg tablet 800 mg PO BID PRN Pain 12/07/24 12/07/24 Unknown History losartan 50 mg tablet 50 mg PO DAILY 12/07/24 12/07/24 12/07/24 History omega 0-bbd-roi-fish oil 1,000 mg 1 cap PO DAILY 12/07/24 12/07/24 12/07/24 History (120 mg-180 mg) capsule (Fish Oil) polyethylene glycol 3350 17 21.25 g PO BEDTIME 12/07/24 12/07/24 12/07/24 History gram/dose oral powder (Miralax) pumpkin seed extract 500 mg capsule 1,000 mg PO DAILY 12/07/24 12/07/24 12/07/24 History Exam Height,Weight and Vital Signs: Height 5 ft 11 in Weight 102.9 kg Last Vital Signs Temp 97.4 F 12/08/24 07:30 Pulse 77 12/08/24 07:30 Resp 16 12/08/24 07:30 BP 102/63 12/08/24 07:30 Pulse Ox 95 12/08/24 07:30 O2 Del Method Room Air 12/08/24 07:30 Pertinent Lab Results Pertinent Lab Results: Laboratory Tests 12/07/24 12/08/24 19:16 05:52 WBC 13.5 H 9.4 RBC 5.26 4.30 L Hgb 16.2 13.3 L Hct 45.3 37.0 L MCV 86.1 86.0 MCH 30.8 30.9 MCHC 35.8 35.9 RDW 12.7 12.9 Plt Count 190 184 MPV 10.3 10.8 Immature Gran % (Auto) 0.4 0.3 Neut % (Auto) 85.5 H 72.9 Lymph % (Auto) 10.1 L 18.5 L Boyd % (Auto) 3.5 6.7 Eos % (Auto) 0.1 1.1 Baso % (Auto) 0.4 0.5 Lymph # (Auto) 1.4 1.7 Boyd # (Auto) 0.5 0.6 Eos # (Auto) 0.0 0.1 Baso # (Auto) 0.1 0.1 Abs Immat Gran (auto) 0.05 H 0.03 Absolute Neuts (auto) 11.6 H 6.8 Absolute Nucleated RBC 0.000 0.000 Nucleated RBC % (auto) 0.0 0.0 Sodium 143 141 Potassium 2.9 L* 3.0 L Chloride 101 103 Carbon Dioxide 27 29 Anion Gap 18 12 BUN 17 H 16 Creatinine 0.87 0.76 Estim Creat Clear Calc 110.1 126.2 Estimated GFR > 60 > 60 Random Glucose 113 Fasting Glucose 108 H Calcium 9.6 8.7 D Magnesium 2.0 Total Bilirubin 0.8 Direct Bilirubin 0.3 AST 48 H ALT 26 Alkaline Phosphatase 52 Total Protein 7.6 Albumin 4.6 TSH 0.83 Free T4 0.98 Blood Type O Positive Antibody Screen NEGATIVE Airway TM Dist: >3cm Neck ROM: Full Denture: Upper and Lower Heart: RRR Lungs: CTA Assessment and Plan Assessment Anesthesia Assessment: Anesthesia Plan Discussed and Chart Reviewed Final Anesthetic Review Family History of Problems with Anesthesia: No History of Problems with Anesthesia: No NPO: Yes ASA Class: III and Emergency Final Preanesthetic Review: Meds/Allgs Chart Reviewed, Consent Obtained/Reviewed and Anes Risks/Benef Reviewed Patient Risk: Intermediate Procedure Risk: Low Anesthetic Plan Anesthetic Plan: GA Disposition: Standard PACU
--- NOTE | 2024-12-08 11:52 | PM.OP ---
Brief Operative Note Date of Service: 12/08/24 Pre-op diagnosis: Right ankle bimalleolar fracture Post-op diagnosis: same Procedure: ORIF right jordan Implants: [place] Surgeon: Lalit Mendiola MD Anesthesia: GLMA and local Was an Airline Operations Agent used for this Procedure?: Yes Airline Operations Agent: Bethany Hall Estimated blood loss (mL): 100 IV fluids (mL): 1,000 Pathology: none sent Condition: stable Disposition: PACU
--- NOTE | 2024-12-08 12:34 | PC.NURSE ---
Patient returned from OR to room, awake, alert, conversing.
--- NOTE | 2024-12-08 13:57 | PC.NURSE ---
Theo had ZYN nicotine pouches - patient educated that he can not have those while in the hospital. was handed ZYN container to bring home. Provider Bacilio Salvador notified and nicotine was ordered refer to MAR.
[2024-12-08] MEDS: Nicotine 14 MG PATCH.TD24 TRANSDERMA (14:11)
--- NOTE | 2024-12-08 16:15 | MHC.CM.PN ---
PT LIVES IN [place] WITH HIS , THEY ARE HERE VISITING FAMILY PT HAS A PCP BACK HOME COPY OF HCP REQUESTED PT IS INDEPENDENT WITH NO DME AT BASELINE IMM DELIVERED PT AND BELIEVE HE WILL NEED REHAB REFERRALS SENT
--- NOTE | 2024-12-08 18:00 | PC.NURSE ---
Patient having difficulty voiding. Last void was in OR via straight cath around 11:50 am via report. Bladder scan >500cc, pt attempted to use urinal, unsuccessfully. Informed provider Bacilio Salvador via [employer], provider ordered nurse to straight catheterization. Patient straight cath, 700 cc output. Patient tolerated straight cath well.
[2024-12-09] MEDS: Lactated Ringers 1,000 ML 100 ML IVCONT (00:48)
[2024-12-09 03:46] VITALS: BP 101/61; PULSE 58; RESP 16; TEMP 36.8; O2SAT 93
--- NOTE | 2024-12-09 04:42 | MHC.PIE ---
p; pt unable to void, numerous attempts made to get pt to void with no result. bladder scanned for >600. note; per previous rn, pt had been straight cathed x2 before this shift, in medsurge and in preop/postop i; dr rodriguez notified. place Pratt per protocol e; Pratt placed with min discomfort, immediate output of 700 ml clear yellow urine. will cont to monitor
[2024-12-09 06:25] LABS: MANUAL DIFF FLAG NO
[2024-12-09 06:57] LABS: Anion Gap 12 (12-20); Blood Urea Nitrogen 15 mg/dL (9-16); Calcium 8.3 mg/dL (8.4-10.2); Carbon Dioxide 30 mmol/L (22-29); Chloride 103 mmol/L (96-108); Creatinine Clr Calc Pharmacy 116.9; Estimated Glomerular Filt Rate > 60; Potassium 3.7 mmol/L (3.3-5.1); Sodium 141 mmol/L (135-145)
[2024-12-09 06:58] LABS: Hematocrit 34.7 % (42.0-52.0); Hemoglobin 11.9 g/dl (14.0-18.0); Imm Gran Abs Auto 0.09 X10*3/uL (0.00-0.03); Imm Gran Pct Auto 0.6 % (0.0-0.4); Lymphocytes Absolute Auto 1.4 X10*3/uL (1.2-4.9); Mean Corpuscular HGB Conc 34.3 g/dl (31.0-36.0); Mean Corpuscular Hemoglobin 30.3 pg (27.0-33.0); Mean Corpuscular Volume 88.3 fL (80.0-98.0); NRBC Abs Auto 0.000 X10*3/uL (0.0-0.012); NRBC Pct Auto 0.0 /100WBC (0.0-0.2); Platelet Count 163 X10*3/uL (160-400); Red Blood Count 3.93 X10*6/uL (4.60-5.80); White Blood Count 14.2 X10*3/uL (4.8-10.8)
[2024-12-09 07:09] VITALS: BP 106/59; PULSE 71; RESP 18; TEMP 36.5; O2SAT 93
--- NOTE | 2024-12-09 07:53 | HO.PM.IMPN ---
Subjective Subjective Date of Service: 12/09/24 Interval History: seen and examined this morning follow up medical consultation awake, alert pain controlled [place] placed overnight for urinary retention Review of Systems Review of Systems: Yes all other systems are reviewed and are negative Constitutional Constitutional: Denies chills and Denies fever(s) Cardiovascular Cardiovascular: Denies chest pain, Denies palpitations and Denies dyspnea Respiratory Respiratory: Denies cough and Denies dyspnea Endocrine Endocrine: Denies palpitations Physical Exam Vital Signs: Vital Signs: Last Vital Signs Temp 97.7 F 12/09/24 07:09 Pulse 71 12/09/24 07:09 Resp 18 12/09/24 07:09 BP 106/59 L 12/09/24 07:09 Pulse Ox 93 12/09/24 07:09 O2 Del Method Room Air 12/09/24 07:09 BMI result Body Mass Index 31.6 Const: General: cooperative, alert and awake Nutritional Appearance: average body habitus Orientation/consciousness: patient oriented x3 Resp: Effort & Inspection: normal respiratory effort, able to speak in complete sentences, no respiratory distress and no use of accessory muscles Cardio: Rate: regular rate GI: Inspection: No distended Palpation (GI): Soft to palpation Neuro: General: patient oriented x3 and CN's II-XI intact bilaterally Extrem: Other: right ankle/lower leg and left wrist splited Objective Data Active Medications Acetaminophen (Acetaminophen 325 Mg Tablet) 650 mg PO Q6H PRN PRN Reason: Pain, Mild 1-3,fever,headache Last Admin: 12/08/24 17:50 Dose: 650 mg Documented By: KOBE Ascorbic Acid (Ascorbic Acid 500 Mg Tablet) 1,000 mg PO DAILY [facility] Last Admin: 12/08/24 08:41 Dose: 1,000 mg Documented By: KOBE Buprenorphine/Naloxone (Buprenorphine/Naloxone 8/2 Mg Film) 1 film SUBLINGUAL TID [facility] Last Admin: 12/08/24 20:50 Dose: 1 film Documented By: CLEOPATRA Calcium Carbonate (Calcium Carbonate 750 Mg Tab.Chew) 750 mg PO Q4H PRN PRN Reason: Heartburn Celecoxib (Celecoxib 200 Mg Capsule) 200 mg PO BID [facility] Last Admin: 12/08/24 20:45 Dose: 200 mg Documented By: CLEOPATRA Clonazepam (Clonazepam 0.5 Mg Tablet) 0.5 mg PO TID PRN PRN Reason: Anxiety Cyanocobalamin (Cyanocobalamin (Vitamin B-12) 1,000 Mcg Tablet) 1,000 mcg PO DAILY [facility] Last Admin: 12/08/24 08:41 Dose: 1,000 mcg Documented By: KOBE Docusate Sodium (Docusate Sodium 100 Mg Capsule) 300 mg PO BEDTIME [facility] Last Admin: 12/08/24 20:44 Dose: 300 mg Documented By: CLEOPATRA Hydralazine HCl (Hydralazine Hcl 20 Mg/Ml Vial) 10 mg IVPUSH Q6H PRN; Protocol PRN Reason: SBP > 160 Hydromorphone HCl (Hydromorphone Hcl 0.5 Mg/0.5 Ml Syringe) 1 mg IVPUSH Q4H PRN; Protocol PRN Reason: Pain, Severe (Pain Scale 7-10) Last Admin: 12/09/24 04:33 Dose: 1 mg Documented By: CLEOPATRA Lactated Ringer's (Lr) 1,000 mls @ 100 mls/hr IVCONT .Q10H [facility] Last Admin: 12/09/24 00:48 Dose: 100 mls/hr Documented By: CLEOPATRA Cefazolin Sodium/Dextrose (Ancef) 2 gm in 50 mls @ 100 mls/hr IV POSTOP HIGINIO Losartan Potassium (Losartan Potassium 50 Mg Tablet) 50 mg PO DAILY [facility]; Protocol Magnesium Hydroxide (Milk Of Magnesia 30 Ml Oral.Susp) 30 ml PO DAILY PRN PRN Reason: Constipation Naloxone HCl (Naloxone Hcl 0.4 Mg/Ml Vial) 0.04 mg IVPUSH Q5M PRN PRN Reason: Excessive sedation or RR < 8 Nicotine (Nicotine 14 Mg Patch.Td24) 14 mg TRANSDERMA DAILY [facility] Last Admin: 12/08/24 14:11 Dose: 14 mg Documented By: KOBE Nicotine Polacrilex (Nicotine Polacrilex 2 Mg Gum) 2 mg BUCCAL Q2H PRN PRN Reason: Nicotine Cravings Last Admin: 12/08/24 14:11 Dose: 2 mg Documented By: KOBE Ondansetron HCl (Ondansetron Hcl 4 Mg/2 Ml Vial) 4 mg IVPUSH Q8H PRN PRN Reason: Nausea and Vomiting Oxycodone HCl (Oxycodone Hcl Immed Release 5 Mg Tablet) 10 mg PO Q4H PRN PRN Reason: Pain, Moderate(Pain Scale 4-6) Last Admin: 12/08/24 17:50 Dose: 10 mg Documented By: KOBE Oxycodone HCl (Oxycodone Hcl Er 10 Mg Tab.Er.12h) 10 mg PO BID [facility] Last Admin: 12/08/24 20:50 Dose: 10 mg Documented By: CLEOPATRA Polyethylene Glycol (Polyethylene Glycol 3350 17 Gm Powd.Pack) 17 gm PO BEDTIME [facility] Last Admin: 12/08/24 20:51 Dose: 17 gm Documented By: CLEOPATRA Pregabalin (Pregabalin 75 Mg Capsule) 225 mg PO Q12H [facility] Last Admin: 12/08/24 20:48 Dose: 225 mg Documented By: CLEOPATRA Senna (Sennosides 8.6 Mg Tablet) 17.2 mg PO BEDTIME [facility] Last Admin: 12/08/24 20:46 Dose: 17.2 mg Documented By: CLEOPATRA Sodium Chloride (0.9 % Sodium Chloride Flush 3 Ml Syringe) 3 ml IVFLUSH QSHIFT [facility] Last Admin: 12/08/24 20:59 Dose: Not Given Documented By: CLEOPATRA Non-Admin Reason: IV Running Vitamin D (Cholecalciferol (Vitamin D3) 10 Mcg Tablet) 10 mcg PO DAILY [facility] Last Admin: 12/08/24 08:41 Dose: 10 mcg Documented By: KOBE Labs 12/09/24 06:13 12/09/24 06:12 Labs: Laboratory Results - last 24 hr 12/09/24 12/09/24 06:12 06:13 MCV 88.3 MCH 30.3 MCHC 34.3 RDW 12.9 Plt Count 163 MPV 10.8 Immature Gran % (Auto) 0.6 H Neut % (Auto) 84.5 H Lymph % (Auto) 9.8 L Reynolds % (Auto) 5.0 Eos % (Auto) 0.0 Baso % (Auto) 0.1 Lymph # (Auto) 1.4 Reynolds # (Auto) 0.7 Eos # (Auto) 0.0 Baso # (Auto) 0.0 Abs Immat Gran (auto) 0.09 H Absolute Neuts (auto) 12.0 H Absolute Nucleated RBC 0.000 Nucleated RBC % (auto) 0.0 Anion Gap 12 Estim Creat Clear Calc 116.9 Estimated GFR > 60 Fasting Glucose 172 H Calcium 8.3 L Assessment and Plan (1) Chronic, continuous use of opioids: Status: Acute (2) Urinary retention: Status: Acute Plan This is a 59-year-old male with past medical history hypertension, chronic pain disorder on Suboxone, fibromyalgia, anxiety, urinary hesitancy secondary to Suboxone with no history of prostate issues, multiple chronic back issues was seen in the emergency department after being brought in by ambulance secondary to falling from a ladder while working on his mother's home removing wells from the roof. Patient injured his left wrist and right ankle. Patient reported no loss of consciousness with no head or neck pain. Patient also denied any chest pain or abdominal pain. Patient presented with deformities in both the left wrist in the right ankle. Patient stated Dilaudid was helping with his pain management noting he is on Suboxone. Pt resides from [place] and is currently visiting with his mother and family. Pt planned on returning to [place] December 16. left wrist fx; Right ankle fx s/p ORIF right bimaleolar fx 12/08 timing of left wrist surgery TBD Management per orthopedic surgery Hypokalemia resolved with replacement Hold chlorthalidone/ HCTZ follow BMP HTN will hold losartan, chlorthalidone/HCTZ due to soft BP Hydralazine prn Chronic pain/fibromyalagia Suboxone Tylenol PRN No NSAIDs Urinary retention associated with suboxone use, no hx of prostate issues required orona catheter placement voiding trial in 48 hours consider flomax if BP allows Elevated fasting sugar reports sugar has been borderline and PCP is following check Hba1c leukocytosis likely reactive from surgery First Degree AVB Incidental non consequential Patient not currently on 80 ace blockers Would not prevent surgery in the a.m. and does not require cardiac clearance tobacco dependence smoking cessation advised NRT Thank you for allowing us to participate in the care of this patient. We will follow along with you. Quality Stroke Does the patient have a stroke diagnosis?: No VTE Prior VTE?: No VTE Risk Level:: Medical - moderate - high VTE Device Contraindication: Treatment Not Indicated VTE Drug Contraindication: Treatment Not Indicated
[2024-12-09 08:34] LABS: Hemoglobin A1C 151.3697 umol/L; Total Hemoglobin (HGBA1C) 3175.7629 umol/L
--- NOTE | 2024-12-09 08:55 | P.PNOP_ITS ---
Subjective Subjective Date of Service: 12/09/24 Interval history: POD1 s/p right ankle ORIF Patient is resting in bed No overnight events Pain is managed No additional complaints Physical Exam Vital Signs: Vital Signs: Last Vital Signs Temp 97.7 F 12/09/24 07:09 Pulse 71 12/09/24 07:09 Resp 18 12/09/24 07:09 BP 106/59 L 12/09/24 07:09 Pulse Ox 93 12/09/24 07:09 O2 Del Method Room Air 12/09/24 07:09 BMI result Body Mass Index 31.6 Const: General: cooperative, healthy appearing and no acute distress Resp: Effort & Inspection: normal respiratory effort and able to speak in complete sentences Extrem: Other: Right ankle: Splint intact. Splint taken down to see skin:minor fracture blistering on the lateral incision site. One very small blister on the medial incision site. No evidence of open fracture. Able to slightly dorsiflex and plantar flex but significantly limited due to pain. Sensation intact. Pedal pulse intact. Left wrist: Splint intact. Able to move all digits. Edema in the hand and di gits. Sensation intact. Capillary refill brisk. Psych: Appearance: grossly normal Mental Status: mental status grossly normal Attitude: cooperative Procedures Date of Service Date of Service: 12/09/24 Progress Note: A&P Assessment and plan (1) Closed displaced trimalleolar fracture of right ankle: Status: Acute (2) Fibromyalgia: Status: Acute (3) Chronic, continuous use of opioids: Status: Acute (4) Chronic pain syndrome: Status: Acute Plan Continue pain mgmnt hold on dvt ppx - planning to bring to OR tomorrow for left wrist ORIF with Dr. Ayala Right ankle - strict elevation on three pillows above heart level Dispo planning-pain management, pending left wrist ORIF Time Spent With Patient Time: Total time managing care of this patient today ____ minutes. Quality Stroke Does the patient have a stroke diagnosis?: No VTE Prior VTE?: No VTE Risk Level:: Medical - moderate - high VTE Device Contraindication: Treatment Not Indicated VTE Drug Contraindication: Treatment Not Indicated
[2024-12-09] MEDS: Cholecalciferol (Vitamin D3) 10 MCG TABLET PO (09:12)
[2024-12-09] MEDS: oxyCODONE HCl ER 10 MG TAB.ER.12H PO ×2 (09:12→20:07)
[2024-12-09] MEDS: Nicotine 14 MG PATCH.TD24 TRANSDERMA (09:12)
[2024-12-09 12:10] VITALS: BP 109/61; PULSE 61; RESP 16; TEMP 36.9; O2SAT 94
[2024-12-09] MEDS: oxyCODONE HCl Immed Release 5 MG TABLET 10 MG PO (13:37)
[2024-12-09 15:17] VITALS: BP 121/62; PULSE 69; RESP 18; TEMP 36.4; O2SAT 94
[2024-12-09] MEDS: 0.9 % Sodium Chloride Flush 3 ML SYRINGE IVFLUSH ×2 (16:57→20:12)
[2024-12-09 18:59] VITALS: BP 132/66; PULSE 70; RESP 18; TEMP 36.5; O2SAT 93
[2024-12-09 23:39] VITALS: BP 115/63; PULSE 71; RESP 16; TEMP 36.7; O2SAT 93
[2024-12-10] VITALS (10 sets, daily range): BP systolic 111–160; BP diastolic 57–84; PULSE 64–102; RESP 14–20; TEMP 36.5–37.2; O2SAT 94–97
[2024-12-10] MEDS: oxyCODONE HCl Immed Release 5 MG TABLET 10 MG PO ×4 (01:19→22:45)
[2024-12-10 06:28] LABS: MANUAL DIFF FLAG NO
[2024-12-10 06:46] LABS: Hematocrit 34.5 % (42.0-52.0); Hemoglobin 11.7 g/dl (14.0-18.0); Imm Gran Abs Auto 0.03 X10*3/uL (0.00-0.03); Imm Gran Pct Auto 0.3 % (0.0-0.4); Lymphocytes Absolute Auto 2.5 X10*3/uL (1.2-4.9); Mean Corpuscular HGB Conc 33.9 g/dl (31.0-36.0); Mean Corpuscular Hemoglobin 30.5 pg (27.0-33.0); Mean Corpuscular Volume 90.1 fL (80.0-98.0); NRBC Abs Auto 0.000 X10*3/uL (0.0-0.012); NRBC Pct Auto 0.0 /100WBC (0.0-0.2); Platelet Count 153 X10*3/uL (160-400); Red Blood Count 3.83 X10*6/uL (4.60-5.80); White Blood Count 9.5 X10*3/uL (4.8-10.8)
[2024-12-10 06:53] LABS: Anion Gap 11 (12-20); Blood Urea Nitrogen 12 mg/dL (9-16); Calcium 8.3 mg/dL (8.4-10.2); Carbon Dioxide 29 mmol/L (22-29); Chloride 105 mmol/L (96-108); Creatinine Clr Calc Pharmacy 116.9; Estimated Glomerular Filt Rate > 60; Potassium 3.2 mmol/L (3.3-5.1); Sodium 142 mmol/L (135-145)
--- NOTE | 2024-12-10 07:29 | PM.PNORT ---
Subjective Subjective Date of Service: 12/10/24 Interval history: POD2 s/p right ankle ORIF Patient is resting in bed No overnight events Pain is managed No additional complaints Physical Exam Vital Signs: Vital Signs: Last Vital Signs Temp 97.9 F 12/10/24 07:12 Pulse 71 12/10/24 07:12 Resp 16 12/10/24 07:12 BP 150/72 H 12/10/24 07:12 Pulse Ox 94 12/10/24 07:12 O2 Del Method Room Air 12/10/24 07:12 BMI result Body Mass Index 31.6 Const: General: cooperative, healthy appearing and no acute distress Resp: Effort & Inspection: normal respiratory effort and able to speak in complete sentences Extrem: Other: Right ankle: Splint intact. Splint taken down to see skin:minor fracture blistering on the lateral incision site - stable. One very small blister on the medial incision site - stable. Able to slightly dorsiflex and plantar flex but significantly limited due to pain. Sensation intact. Pedal pulse intact. Left wrist: Splint intact. Able to move all digits. Edema in the hand and digits. Sensation intact. Capillary refill brisk. Psych: Appearance: grossly normal Mental Status: mental status grossly normal Attitude: cooperative Procedures Date of Service Date of Service: 12/10/24 Progress Note: A&P Assessment and plan (1) Closed displaced trimalleolar fracture of right ankle: Status: Acute (2) Fibromyalgia: Status: Acute (3) Chronic, continuous use of opioids: Status: Acute (4) Chronic pain syndrome: Status: Acute Plan Continue pain mgmnt hold on dvt ppx - planning to bring to OR today for left wrist ORIF with Dr. Ayala Right ankle - strict elevation on three pillows above heart level Dispo planning-pain management, pending left wrist ORIF Time Spent With Patient Time: Total time managing care of this patient today ____ minutes. Quality Stroke Does the patient have a stroke diagnosis?: No VTE Prior VTE?: No VTE Risk Level:: Medical - moderate - high VTE Device Contraindication: Treatment Not Indicated VTE Drug Contraindication: Treatment Not Indicated
[2024-12-10] MEDS: 0.9 % Sodium Chloride Flush 3 ML SYRINGE IVFLUSH ×2 (07:37→17:26)
--- NOTE | 2024-12-10 07:59 | HO.PM.IMPN ---
Subjective Subjective Date of Service: 12/10/24 Interval History: awake, alert pain controlled denies new c/o waiting for going to surgery Review of Systems no new events Review of Systems: Yes all other systems are reviewed and are negative Physical Exam Exam: Exam: Appearance: Alert.? Oriented X3.? cvs: [id number], [id number] res: clear to auscultation ,no rhonchii or wheezing abd: no rebound or guarding ,nt, bs present. ext pulses present , no cyanosis . neuro: axo3 , nonfocal. Vital Signs: Vital Signs: Last Vital Signs Temp 97.9 F 12/10/24 07:12 Pulse 71 12/10/24 07:12 Resp 16 12/10/24 07:12 BP 150/72 H 12/10/24 07:12 Pulse Ox 94 12/10/24 07:12 O2 Del Method Room Air 12/10/24 07:12 BMI result Body Mass Index 31.6 Objective Data Active Medications Acetaminophen (Acetaminophen 325 Mg Tablet) 650 mg PO Q6H PRN PRN Reason: Pain, Mild 1-3,fever,headache Last Admin: 12/09/24 13:37 Dose: 650 mg Documented By: KOBE Ascorbic Acid (Ascorbic Acid 500 Mg Tablet) 1,000 mg PO DAILY [facility] Last Admin: 12/09/24 09:12 Dose: 1,000 mg Documented By: KOBE Buprenorphine/Naloxone (Buprenorphine/Naloxone 8/2 Mg Film) 1 film SUBLINGUAL TID [facility] Last Admin: 12/09/24 20:08 Dose: 1 film Documented By: DIONNE-DESJOSE Calcium Carbonate (Calcium Carbonate 750 Mg Tab.Chew) 750 mg PO Q4H PRN PRN Reason: Heartburn Celecoxib (Celecoxib 200 Mg Capsule) 200 mg PO BID [facility] Last Admin: 12/09/24 20:07 Dose: 200 mg Documented By: DIONNE-ERNESTO Clonazepam (Clonazepam 0.5 Mg Tablet) 0.5 mg PO TID PRN PRN Reason: Anxiety Cyanocobalamin (Cyanocobalamin (Vitamin B-12) 1,000 Mcg Tablet) 1,000 mcg PO DAILY [facility] Last Admin: 12/09/24 09:12 Dose: 1,000 mcg Documented By: KOBE Docusate Sodium (Docusate Sodium 100 Mg Capsule) 300 mg PO BEDTIME [facility] Last Admin: 12/09/24 20:07 Dose: 300 mg Documented By: DIONNE-ERNESTO Hydromorphone HCl (Hydromorphone Hcl 0.5 Mg/0.5 Ml Syringe) 1 mg IVPUSH Q4H PRN; Protocol PRN Reason: Pain, Severe (Pain Scale 7-10) Last Admin: 12/10/24 07:33 Dose: 1 mg Documented By: LEFEBVA Cefazolin Sodium/Dextrose (Ancef) 2 gm in 50 mls @ 100 mls/hr IV POSTOP HIGINIO Cefazolin Sodium/Dextrose (Ancef) 2 gm in 50 mls @ 100 mls/hr IV PREOP ONE Stop: 12/10/24 09:29 Losartan Potassium (Losartan Potassium 50 Mg Tablet) 50 mg PO DAILY HIG[facility]; Protocol On Hold: 12/09/24 09:21 Last Admin: 12/09/24 09:20 Dose: Not Given Documented By: KOBE Non-Admin Reason: Physician Held Med Comments: hold per Bacilio Salvador via [facility] [employer] due to BP. Magnesium Hydroxide (Milk Of Magnesia 30 Ml Oral.Susp) 30 ml PO DAILY PRN PRN Reason: Constipation Naloxone HCl (Naloxone Hcl 0.4 Mg/Ml Vial) 0.04 mg IVPUSH Q5M PRN PRN Reason: Excessive sedation or RR < 8 Nicotine (Nicotine 14 Mg Patch.Td24) 14 mg TRANSDERMA DAILY [facility] Last Admin: 12/09/24 09:12 Dose: 14 mg Documented By: KOBE Nicotine Polacrilex (Nicotine Polacrilex 2 Mg Gum) 2 mg BUCCAL Q2H PRN PRN Reason: Nicotine Cravings Last Admin: 12/08/24 14:11 Dose: 2 mg Documented By: KOBE Ondansetron HCl (Ondansetron Hcl 4 Mg/2 Ml Vial) 4 mg IVPUSH Q8H PRN PRN Reason: Nausea and Vomiting Oxycodone HCl (Oxycodone Hcl Immed Release 5 Mg Tablet) 10 mg PO Q4H PRN PRN Reason: Pain, Moderate(Pain Scale 4-6) Last Admin: 12/10/24 01:19 Dose: 10 mg Documented By: RENITA Oxycodone HCl (Oxycodone Hcl Er 10 Mg Tab.Er.12h) 10 mg PO BID [facility] Last Admin: 12/09/24 20:07 Dose: 10 mg Documented By: RENITA Polyethylene Glycol (Polyethylene Glycol 3350 17 Gm Powd.Pack) 17 gm PO BEDTIME [facility] Last Admin: 12/09/24 20:07 Dose: 17 gm Documented By: RENITA Pregabalin (Pregabalin 75 Mg Capsule) 225 mg PO Q12H [facility] Last Admin: 12/09/24 20:07 Dose: 225 mg Documented By: RENITA Senna (Sennosides 8.6 Mg Tablet) 17.2 mg PO BEDTIME [facility] Last Admin: 12/09/24 20:07 Dose: 17.2 mg Documented By: RENITA Sodium Chloride (0.9 % Sodium Chloride Flush 3 Ml Syringe) 3 ml IVFLUSH QSHIFT [facility] Last Admin: 12/10/24 07:37 Dose: 3 ml Documented By: LEFSHADY Vitamin D (Cholecalciferol (Vitamin D3) 10 Mcg Tablet) 10 mcg PO DAILY [facility] Last Admin: 12/09/24 09:12 Dose: 10 mcg Documented By: COLBURK Labs 12/10/24 05:53 12/10/24 05:53 Labs: Laboratory Results - last 24 hr 12/09/24 12/10/24 06:13 05:53 MCV 90.1 MCH 30.5 MCHC 33.9 RDW 13.0 Plt Count 153 L MPV 11.1 Immature Gran % (Auto) 0.3 Neut % (Auto) 63.5 Lymph % (Auto) 26.3 Wood % (Auto) 7.9 Eos % (Auto) 1.6 Baso % (Auto) 0.4 Lymph # (Auto) 2.5 Wood # (Auto) 0.8 Eos # (Auto) 0.2 Baso # (Auto) 0.0 Abs Immat Gran (auto) 0.03 Absolute Neuts (auto) 6.1 Absolute Nucleated RBC 0.000 Nucleated RBC % (auto) 0.0 Anion Gap 11 L Estim Creat Clear Calc 116.9 Estimated GFR > 60 Fasting Glucose 104 H Estimat Average Glucose 140 Hemoglobin A1c % 6.5 H Calcium 8.3 L Assessment and Plan (1) Chronic, continuous use of opioids: Status: Acute (2) Urinary retention: Status: Acute Plan This is a 59-year-old male with past medical history hypertension, chronic pain disorder on Suboxone, fibromyalgia, anxiety, urinary hesitancy secondary to Suboxone with no history of prostate issues, multiple chronic back issues was seen in the emergency department after being brought in by ambulance secondary to falling from a ladder while working on his mother's home removing wells from the roof. Patient injured his left wrist and right ankle. Patient reported no loss of consciousness with no head or neck pain. Patient also denied any chest pain or abdominal pain. Patient presented with deformities in both the left wrist in the right ankle. Patient stated Dilfranciscoid was helping with his pain management noting he is on Suboxone. Pt resides from [place] and is currently visiting with his mother and family. Pt planned on returning to [place] December 16. left wrist fx; Right ankle fx s/p ORIF right bimaleolar fx 12/08 timing of left wrist surgery TBD Management per orthopedic surgery Hypokalemia resolved with replacement Hold chlorthalidone/ HCTZ follow BMP HTN will hold losartan, chlorthalidone/HCTZ due to soft BP Hydralazine prn Chronic pain/fibromyalagia Suboxone Tylenol PRN No NSAIDs Urinary retention associated with suboxone use, no hx of prostate issues required orona catheter placement voiding trial in 48 hours consider flomax if BP allows Elevated fasting sugar reports sugar has been borderline and PCP is following hba1c is 6.5, patient says that he was recently in the [place] where his hemoglobin A1c was 7.4, he was taking Ozempic, currently does not want to continue Ozempic. Diabetic diet, We will add fingerstick with sliding scale. leukocytosis likely reactive from surgery First Degree AVB Incidental non consequential Patient not currently ace blockers tobacco dependence smoking cessation advised NRT Thank you for allowing us to participate in the care of this patient. We will follow along with you. Quality Stroke Does the patient have a stroke diagnosis?: No VTE Prior VTE?: No VTE Risk Level:: Medical - moderate - high VTE Device Contraindication: Treatment Not Indicated VTE Drug Contraindication: Treatment Not Indicated
--- NOTE | 2024-12-10 08:24 | HO.ANESPROP2 ---
Documented by User: Gail Chavis NP 12/10/24 08:26 HPI - Anesthesia Eval Consult details Narrative: 59 yr old male for left radius distal fracture ORIF On suboxone for h/o OUD s/p right ankle ORIF 12/08/24 with GA, ETT 7.5 PMFSH Active Problems Active Problems: All Active Problems Urinary retention (Acute) Hypertension (Acute) Hypokalemia (Acute) Closed displaced trimalleolar fracture of right ankle (Acute) Closed fracture of left wrist (Acute) Fibromyalgia (Acute) Bilateral sacroiliitis (Acute) Muscle spasm (Acute) Facet arthropathy, lumbosacral (Acute) Opioid dependence (Acute) Thoracic radiculopathy (Acute) Spondylosis of lumbar spine (Acute) Disc degeneration, lumbar (Acute) Chronic, continuous use of opioids (Acute) Chronic pain syndrome (Acute) Thoracic spine pain (Acute) Low back pain (Acute) Past Medical History Medical History Hypertension Opioid dependence Opioid dependence Thoracic radiculopathy Spondylosis of lumbar spine Disc degeneration, lumbar Chronic, continuous use of opioids Chronic pain syndrome Thoracic spine pain Low back pain Functional capacity: independent ambulation (Status post right ankle injury) Family History Family history of problems with anesthesia: No Surgical History History of Problems with Anesthesia: No Social History Social History Household Members: Spouse Housing: House Are you a primary child care specialist to a significant other at home: No Do you presently have visiting nurse or other home services: No Patient Tobacco Use Status: Former Tobacco user e-Cigarette/Vaping Use: Never Used Second Hand Smoke Exposure: No service: No Meds Allergies Allergy/AdvReac Type Severity Reaction Status Date / Time glipizide Allergy Severe N/V for 5 Verified 12/07/24 14:52 days pentazocine (From Talwin) Allergy Severe Very rapid Verified 12/07/24 14:52 HR and high BP Active Medications: Current Medications Acetaminophen (Acetaminophen 325 Mg Tablet) 650 mg PO Q6H PRN PRN Reason: Pain, Mild 1-3,fever,headache Last Admin: 12/09/24 13:37 Dose: 650 mg Ascorbic Acid (Ascorbic Acid 500 Mg Tablet) 1,000 mg PO DAILY [facility] Last Admin: 12/09/24 09:12 Dose: 1,000 mg Buprenorphine/Naloxone (Buprenorphine/Naloxone 8/2 Mg Film) 1 film SUBLINGUAL TID [facility] Last Admin: 12/09/24 20:08 Dose: 1 film Calcium Carbonate (Calcium Carbonate 750 Mg Tab.Chew) 750 mg PO Q4H PRN PRN Reason: Heartburn Celecoxib (Celecoxib 200 Mg Capsule) 200 mg PO BID [facility] Last Admin: 12/09/24 20:07 Dose: 200 mg Clonazepam (Clonazepam 0.5 Mg Tablet) 0.5 mg PO TID PRN PRN Reason: Anxiety Cyanocobalamin (Cyanocobalamin (Vitamin B-12) 1,000 Mcg Tablet) 1,000 mcg PO DAILY [facility] Last Admin: 12/09/24 09:12 Dose: 1,000 mcg Docusate Sodium (Docusate Sodium 100 Mg Capsule) 300 mg PO BEDTIME [facility] Last Admin: 12/09/24 20:07 Dose: 300 mg Hydromorphone HCl (Hydromorphone Hcl 0.5 Mg/0.5 Ml Syringe) 1 mg IVPUSH Q4H PRN; Protocol PRN Reason: Pain, Severe (Pain Scale 7-10) Last Admin: 12/10/24 07:33 Dose: 1 mg Cefazolin Sodium/Dextrose (Ancef) 2 gm in 50 mls @ 100 mls/hr IV POSTOP HIGINIO Cefazolin Sodium/Dextrose (Ancef) 2 gm in 50 mls @ 100 mls/hr IV PREOP ONE Stop: 12/10/24 09:29 Losartan Potassium (Losartan Potassium 50 Mg Tablet) 50 mg PO DAILY [facility]; Protocol On Hold: 12/09/24 09:21 Last Admin: 12/09/24 09:20 Dose: Not Given Magnesium Hydroxide (Milk Of Magnesia 30 Ml Oral.Susp) 30 ml PO DAILY PRN PRN Reason: Constipation Naloxone HCl (Naloxone Hcl 0.4 Mg/Ml Vial) 0.04 mg IVPUSH Q5M PRN PRN Reason: Excessive sedation or RR < 8 Nicotine (Nicotine 14 Mg Patch.Td24) 14 mg TRANSDERMA DAILY [facility] Last Admin: 12/09/24 09:12 Dose: 14 mg Nicotine Polacrilex (Nicotine Polacrilex 2 Mg Gum) 2 mg BUCCAL Q2H PRN PRN Reason: Nicotine Cravings Last Admin: 12/08/24 14:11 Dose: 2 mg Ondansetron HCl (Ondansetron Hcl 4 Mg/2 Ml Vial) 4 mg IVPUSH Q8H PRN PRN Reason: Nausea and Vomiting Oxycodone HCl (Oxycodone Hcl Immed Release 5 Mg Tablet) 10 mg PO Q4H PRN PRN Reason: Pain, Moderate(Pain Scale 4-6) Last Admin: 12/10/24 01:19 Dose: 10 mg Oxycodone HCl (Oxycodone Hcl Er 10 Mg Tab.Er.12h) 10 mg PO BID [facility] Last Admin: 12/09/24 20:07 Dose: 10 mg Polyethylene Glycol (Polyethylene Glycol 3350 17 Gm Powd.Pack) 17 gm PO BEDTIME [facility] Last Admin: 12/09/24 20:07 Dose: 17 gm Pregabalin (Pregabalin 75 Mg Capsule) 225 mg PO Q12H [facility] Last Admin: 12/09/24 20:07 Dose: 225 mg Senna (Sennosides 8.6 Mg Tablet) 17.2 mg PO BEDTIME [facility] Last Admin: 12/09/24 20:07 Dose: 17.2 mg Sodium Chloride (0.9 % Sodium Chloride Flush 3 Ml Syringe) 3 ml IVFLUSH QSHIFT [facility] Last Admin: 12/10/24 07:37 Dose: 3 ml Vitamin D (Cholecalciferol (Vitamin D3) 10 Mcg Tablet) 10 mcg PO DAILY [facility] Last Admin: 12/09/24 09:12 Dose: 10 mcg Home Medications ?Medication ?Instructions ?Recorded ?Confirmed ?Last Taken ?Type chlorthalidone 25 mg tablet 25 mg PO DAILY 01/24/20 12/07/24 12/07/24 History testosterone cypionate 200 mg/mL 200 mg IM WE 01/24/20 12/07/24 12/07/24 History intramuscular oil clonazepam 0.5 mg tablet 0.5 mg PO TID PRN Anxiety 09/18/21 12/07/24 Unknown History Cinculin (Trunature) 500 mg PO DAILY 12/07/24 12/07/24 12/07/24 History L.acidophil-L.casei-B.bifid-B.longum-FOS 1 cap PO DAILY 12/07/24 12/07/24 12/07/24 History 2 billion cell-50 mg capsule (Probiotic Blend) Vitamin D3 1 tab PO DAILY 12/07/24 12/07/24 12/07/24 History ascorbic acid (vitamin C) 1,000 mg 1,000 mg PO DAILY 12/07/24 12/07/24 12/07/24 History tablet (Vitamin C) cyanocobalamin (vitamin B-12) 1,000 mcg PO DAILY 12/07/24 12/07/24 12/07/24 History 1,000 mcg tablet (Vitamin B-12) docusate sodium 100 mg tablet 300 mg PO BEDTIME 12/07/24 12/07/24 12/06/24 History glucosamine HCl 1,500 mg tablet 1,500 mg PO DAILY 12/07/24 12/07/24 12/07/24 History ibuprofen 800 mg tablet 800 mg PO BID PRN Pain 12/07/24 12/07/24 Unknown History losartan 50 mg tablet 50 mg PO DAILY 12/07/24 12/07/24 12/07/24 History omega 6-psz-lxc-fish oil 1,000 mg 1 cap PO DAILY 12/07/24 12/07/24 12/07/24 History (120 mg-180 mg) capsule (Fish Oil) polyethylene glycol 3350 17 21.25 g PO BEDTIME 12/07/24 12/07/24 12/07/24 History gram/dose oral powder (Miralax) pumpkin seed extract 500 mg capsule 1,000 mg PO DAILY 12/07/24 12/07/24 12/07/24 History Exam Height,Weight and Vital Signs: Height 5 ft 11 in Weight 102.9 kg Last Vital Signs Temp 97.9 F 12/10/24 07:12 Pulse 71 12/10/24 07:12 Resp 16 12/10/24 07:12 BP 150/72 H 12/10/24 07:12 Pulse Ox 94 12/10/24 07:12 O2 Del Method Room Air 12/10/24 07:12 Pertinent Lab Results Pertinent Lab Results: Laboratory Tests 12/07/24 12/08/24 12/09/24 19:16 05:52 06:12 WBC 13.5 H 9.4 RBC 5.26 4.30 L Hgb 16.2 13.3 L Hct 45.3 37.0 L MCV 86.1 86.0 MCH 30.8 30.9 MCHC 35.8 35.9 RDW 12.7 12.9 Plt Count 190 184 MPV 10.3 10.8 Immature Gran % (Auto) 0.4 0.3 Neut % (Auto) 85.5 H 72.9 Lymph % (Auto) 10.1 L 18.5 L Villalba % (Auto) 3.5 6.7 Eos % (Auto) 0.1 1.1 Baso % (Auto) 0.4 0.5 Lymph # (Auto) 1.4 1.7 Villalba # (Auto) 0.5 0.6 Eos # (Auto) 0.0 0.1 Baso # (Auto) 0.1 0.1 Abs Immat Gran (auto) 0.05 H 0.03 Absolute Neuts (auto) 11.6 H 6.8 Absolute Nucleated RBC 0.000 0.000 Nucleated RBC % (auto) 0.0 0.0 Sodium 143 141 141 Potassium 2.9 L* 3.0 L 3.7 D Chloride 101 103 103 Carbon Dioxide 27 29 30 H Anion Gap 18 12 12 BUN 17 H 16 15 Creatinine 0.87 0.76 0.82 Estim Creat Clear Calc 110.1 126.2 116.9 Estimated GFR > 60 > 60 > 60 Random Glucose 113 Fasting Glucose 108 H 172 H Estimat Average Glucose Hemoglobin A1c % Calcium 9.6 8.7 D 8.3 L Magnesium 2.0 Total Bilirubin 0.8 Direct Bilirubin 0.3 AST 48 H ALT 26 Alkaline Phosphatase 52 Total Protein 7.6 Albumin 4.6 TSH 0.83 Free T4 0.98 Blood Type O Positive Antibody Screen NEGATIVE 12/09/24 12/10/24 06:13 05:53 WBC 14.2 H 9.5 RBC 3.93 L 3.83 L Hgb 11.9 L 11.7 L Hct 34.7 L 34.5 L MCV 88.3 90.1 MCH 30.3 30.5 MCHC 34.3 33.9 RDW 12.9 13.0 Plt Count 163 153 L MPV 10.8 11.1 Immature Gran % (Auto) 0.6 H 0.3 Neut % (Auto) 84.5 H 63.5 Lymph % (Auto) 9.8 L 26.3 Villalba % (Auto) 5.0 7.9 Eos % (Auto) 0.0 1.6 Baso % (Auto) 0.1 0.4 Lymph # (Auto) 1.4 2.5 Villalba # (Auto) 0.7 0.8 Eos # (Auto) 0.0 0.2 Baso # (Auto) 0.0 0.0 Abs Immat Gran (auto) 0.09 H 0.03 Absolute Neuts (auto) 12.0 H 6.1 Absolute Nucleated RBC 0.000 0.000 Nucleated RBC % (auto) 0.0 0.0 Sodium 142 Potassium 3.2 L Chloride 105 Carbon Dioxide 29 Anion Gap 11 L BUN 12 Creatinine 0.82 Estim Creat Clear Calc 116.9 Estimated GFR > 60 Random Glucose Fasting Glucose 104 H Estimat Average Glucose 140 Hemoglobin A1c % 6.5 H Calcium 8.3 L Magnesium Total Bilirubin Direct Bilirubin AST ALT Alkaline Phosphatase Total Protein Albumin TSH Free T4 Blood Type Antibody Screen Assessment and Plan Final Anesthetic Review Family History of Problems with Anesthesia: No History of Problems with Anesthesia: No Documented by User: Juliana White MD 12/10/24 14:01 [facility] Past Medical History Medical History Hypertension Opioid dependence Opioid dependence Thoracic radiculopathy Spondylosis of lumbar spine Disc degeneration, lumbar Chronic, continuous use of opioids Chronic pain syndrome Thoracic spine pain Low back pain Social History Social History Household Members: Spouse Housing: House Are you a primary child care specialist to a significant other at home: No Do you presently have visiting nurse or other home services: No Patient Tobacco Use Status: Former Tobacco user e-Cigarette/Vaping Use: Never Used Second Hand Smoke Exposure: No service: No Meds Allergies Allergy/AdvReac Type Severity Reaction Status Date / Time glipizide Allergy Severe N/V for 5 Verified 12/07/24 14:52 days pentazocine (From Talwin) Allergy Severe Very rapid Verified 12/07/24 14:52 HR and high BP Home Medications ?Medication ?Instructions ?Recorded ?Confirmed ?Last Taken ?Type chlorthalidone 25 mg tablet 25 mg PO DAILY 01/24/20 12/07/24 12/07/24 History testosterone cypionate 200 mg/mL 200 mg IM WE 01/24/20 12/07/24 12/07/24 History intramuscular oil clonazepam 0.5 mg tablet 0.5 mg PO TID PRN Anxiety 09/18/21 12/07/24 Unknown History Cinculin (Trunature) 500 mg PO DAILY 12/07/24 12/07/24 12/07/24 History L.acidophil-L.casei-B.bifid-B.longum-FOS 1 cap PO DAILY 12/07/24 12/07/24 12/07/24 History 2 billion cell-50 mg capsule (Probiotic Blend) Vitamin D3 1 tab PO DAILY 12/07/24 12/07/24 12/07/24 History ascorbic acid (vitamin C) 1,000 mg 1,000 mg PO DAILY 12/07/24 12/07/24 12/07/24 History tablet (Vitamin C) cyanocobalamin (vitamin B-12) 1,000 mcg PO DAILY 12/07/24 12/07/24 12/07/24 History 1,000 mcg tablet (Vitamin B-12) docusate sodium 100 mg tablet 300 mg PO BEDTIME 12/07/24 12/07/24 12/06/24 History glucosamine HCl 1,500 mg tablet 1,500 mg PO DAILY 12/07/24 12/07/24 12/07/24 History ibuprofen 800 mg tablet 800 mg PO BID PRN Pain 12/07/24 12/07/24 Unknown History losartan 50 mg tablet 50 mg PO DAILY 12/07/24 12/07/24 12/07/24 History omega 5-jbz-mxo-fish oil 1,000 mg 1 cap PO DAILY 12/07/24 12/07/24 12/07/24 History (120 mg-180 mg) capsule (Fish Oil) polyethylene glycol 3350 17 21.25 g PO BEDTIME 12/07/24 12/07/24 12/07/24 History gram/dose oral powder (Miralax) pumpkin seed extract 500 mg capsule 1,000 mg PO DAILY 08/22/25 08/22/25 08/22/25 History Exam Airway Mallampati Class: II TM Dist: >3cm Neck ROM: Full Heart: rrr Lungs: cta Assessment and Plan Assessment Anesthesia Assessment: Anesthesia Plan Discussed and Chart Reviewed Final Anesthetic Review NPO: Yes ASA Class: III Final Preanesthetic Review: No Changes in Pt Med Stat, Meds/Allgs Chart Reviewed, Consent Obtained/Reviewed and Anes Risks/Benef Reviewed Patient Risk: Intermediate Procedure Risk: Intermediate Anesthetic Plan Anesthetic Plan: GA, Regional Block and Agree w/ Assess. and Plan
[2024-12-10] MEDS: oxyCODONE HCl ER 10 MG TAB.ER.12H PO ×2 (08:39→20:50)
[2024-12-10] MEDS: Cholecalciferol (Vitamin D3) 10 MCG TABLET PO (08:40)
[2024-12-10] MEDS: Potassium Chloride ER 20 MEQ TAB.ER.PRT PO (08:40)
[2024-12-10] MEDS: Nicotine 14 MG PATCH.TD24 TRANSDERMA (08:46)
--- NOTE | 2024-12-10 11:32 | W.PM.OPN ---
Operative Note Operative Note Date of Service: 12/10/24 Narrative: Operative Note Narrative: Preop diagnosis: 1. Left Distal radius fracture, comminuted intra-articular Postop diagnosis: Same Procedure: 1. Distal radius fracture open reduction internal fixation, 3+ part comminuted intra-articular Surgeon: Candis Ayala MD Director Of Mechanical Engineering: NEHA Camp Anesthesia: General anesthesia plus regional block Findings: Severely comminuted intra-articular distal radius fracture Implants: A 3 hole standard Accu Med volar locking plate, with 6 X 2.3 mm locking pegs/screws, and 3 3.5 mm cortical screws Tourniquet time: 94 minutes EBL: 5.0 ml Specimen: None Drains: None Complications: None Disposition: Brought to the recovery room in stable condition Plan: Admit back to floor Keep left upper extremity elevated on 2 pillows at all times. Encourage working on active finger range of motion. Consider OT if having difficulty with finger range of motion. Any kind of walker we will need to be a forearm bearing walker Follow-up in 10-14 days for wound check, suture removal and postop radiographs At follow up The patient will be placed in either a short-arm cast or a volar wrist splint. Encouraged no lifting of anything heavier than a cell phone. Please encourage active and passive range of motion of the digits. Indications: The patient is a 59 year old man with a left comminuted intra-articular distal radius fracture sustained after falling off of a ladder. Patient also has a contralateral ankle fracture that is status post ORIF a few days ago. . The risks and benefits of operative treatment, including but not limited to risk of damage to blood vessels, nerves, tendons, infection, recurrence, persistent pain or numbness, incomplete resolution of preoperative symptoms, or need for further surgery were discussed with the patient and they wished to proceed with surgery. Procedure: Once consent was obtained patient was brought back to the operating suite and placed in the operating table in a supine position. A regional block was performed by the anesthesia team. Perioperative antibiotics and anesthesia was administered by the anesthesia team. A tourniquet was applied to the proximal aspect of the left upper extremity and the limb was prepped and draped in a standard surgical fashion. The limb was elevated exsanguinated with Esmarch bandage and the tourniquet inflated to 250 mm of mercury for a total tourniquet time of 94 minutes. The FluoroScan was used throughout the case to assess our reduction, and facilitate implant placement. A gentle closed reduction was 1st performed on the patient's left distal radius fracture. Was assessed radiographically before proceeding with the open reduction internal fixation. I then made an 8 cm longitudinal incision over the distal aspect of the flexor carpi radialis tendon. The incision was made through the skin to the subcutaneous tissue using a 15. Blade. Then carefully dissected down to flexor carpi radialis tendon she tenotomy scissors. The FCR tendon sheath was then incised longitudinally using tenotomy scissors under direct visualization. The FCR tendon was then retracted ulnarly. I then made a longitudinal incision in the volar forearm fascia through the floor of FCR tendon sheath using tenotomy scissors under direct visualization. I identified the interval between the radial artery and the flexor tendons. This interval was developed further with my index finger, releasing some of the muscular fibers of the flexor pollicis longus. A dull weatlander retractor was then placed. I then created an ulnarly based flap of the pronator quadratus by releasing the radial and distal edges using a 15. Blade. A Kwon elevator was used to elevate the pronator quadratus from the volar surface of the distal radius. This then revealed to us our distal radius fracture. As seen in the CT scan this is a significantly comminuted and very distal intra-articular distal radius fracture An open reduction was then performed on our distal radius fracture. Provisional fixation was made with an oblique K-wire placed through the radial styloid, across the fracture site to the ulnar cortex of the shaft. I then placed a short standard 3 hole Accu Med volar locking plate on the volar surface of the distal radius. I placed a 2 K-wires through the distal aspect of the plate and into the distal radius. This was assessed using fluoroscopic images. I was satisfied with the placement of our plate. I then placed 6 X 2.3 mm locking screws/pegs in the distal aspect of the plate and distal radius by 1st drilling bicortically with a 2.0 mm drill bit, measuring with a depth gauge, and placing the appropriate length locking screws/pegs. The placement of our plate and screws was then assessed again using fluoroscopic images. The once satisfied with the placement of the volar locking plate and screws on the distal aspect of the distal radius. The oblique K-wire was then removed and the plate was then reduced to the shaft of the radius. I then placed 3 X 3.5 mm cortical screws to the proximal aspect of the plate and into the shaft of the radius. This was done by 1st drilling bicortically with a 2.8 mm drill bit, measuring with a depth gauge, and placing the appropriate length screw. Final radiographs were then obtained. The DRUJ was assessed and found to be stable on exam. I was satisfied with our reduction and placement of all implants. At this point the wound was irrigated with normal saline. The pronator quadratus was reduced back over the volar locking plate using some 3-0 Vicryl suture material. The tourniquet was then deflated and hemostasis was obtained with a brief period of local pressure and bipolar monopolar electrocautery. The subcutaneous layer was then reapproximated using some 4-0 Vicryl suture, and the skin edges were reapproximated using some 5 0 Prolene suture. The wound was then infiltrated with some 1% lidocaine with epinephrine postop pain control. A sterile dressing and a short dorsal splint allowing for active flexion and extension of the digits was applied. The patient appears to have tolerated the procedure well and with no complications. All digits were well vascularized conclusion of the case.
[2024-12-10 12:39] LABS: Glucose, Whole Blood 127 mg/dL (60-115)
--- NOTE | 2024-12-10 13:30 | MHC.SHP ---
Pre-Procedural Eval Section A - 24 Hr Update-Section A only Date of Service: 12/10/24 The patient is an INPATIENT: Yes Changes since office visit: No Cold of Flu in the past 2 weeks, No New Medical Problems, No Changes in Medication and No Patient answered all questions The patient has been examined within 24 hours of the surgical procedure. The History & Physical has been completed within 30 days and I have reviewed it.: Yes Section B - Complete if H&P > 30 days Chief Complaint: left wrist fx, rt ankle fx Allergies: Allergies Allergy/AdvReac Type Severity Reaction Status Date / Time glipizide Allergy Severe N/V for 5 Verified 12/07/24 14:52 days pentazocine (From Talwin) Allergy Severe Very rapid Verified 12/07/24 14:52 HR and high BP Exam Exam Comment: The patient was seen by me in pre-op hold. He was alert oriented and in no acute distress He has a left sugar-tong splint in place. He is clean dry and intact. He was able to actively flex and extend his fingers in his thumb without pain. He had normal sensation to the tips of all digits in his cap refill was brisk He also has a splint on the right lower leg and ankle after having had right ankle surgery a couple of days ago. Plan I have reviewed the history and physical and performed a pertinent physical examination on my patient. No changes have occurred unless specified. Assessment and plan: 1. Left distal radius fracture, displaced and significantly comminuted I educated the patient about this condition We discussed operative and non operative treatment options and I am recommending surgery The risks and benefits of operative treatment were discussed with the patient and the patient wishes to proceed with surgery. These risks include, but are not limited to risk of damage to blood vessels, nerves, tendons, infection, recurrence, incomplete relief of preoperative symptoms, persistent pain, possible need for further surgery and the risks associated with regional blocks and anesthesia. The plan is to take the patient to the operating room today for the following procedures: 1. Left distal radius fracture open reduction internal fixation 2. Possible placement of external fixator All of the preoperative paperwork including the consent was filled out today. All the patient's questions were answered. Time Spent With Patient Time: Total time managing care of this patient today ____ minutes.
[2024-12-10] MEDS: Lactated Ringers 1,000 ML 80 ML IVCONT (17:35)
[2024-12-10 17:50] LABS: Glucose, Whole Blood 196 mg/dL (60-115)
[2024-12-10 19:58] LABS: Glucose, Whole Blood 237 mg/dL (60-115)
[2024-12-11] VITALS (7 sets, daily range): BP systolic 119–150; BP diastolic 59–77; PULSE 54–97; RESP 16–20; TEMP 36–37.6; O2SAT 94–96
[2024-12-11] MEDS: Lactated Ringers 1,000 ML 80 ML IVCONT (04:01)
[2024-12-11] MEDS: oxyCODONE HCl Immed Release 5 MG TABLET 10 MG PO ×4 (04:04→20:52)
[2024-12-11 06:02] LABS: MANUAL DIFF FLAG NO
[2024-12-11 06:28] LABS: Anion Gap 12 (12-20); Blood Urea Nitrogen 17 mg/dL (9-16); Calcium 8.2 mg/dL (8.4-10.2); Carbon Dioxide 27 mmol/L (22-29); Chloride 105 mmol/L (96-108); Creatinine Clr Calc Pharmacy 116.9; Estimated Glomerular Filt Rate > 60; Potassium 3.9 mmol/L (3.3-5.1); Sodium 140 mmol/L (135-145)
[2024-12-11] MEDS: 0.9 % Sodium Chloride Flush 3 ML SYRINGE IVFLUSH ×3 (06:44→20:53)
[2024-12-11 07:00] LABS: Hematocrit 33.5 % (42.0-52.0); Hemoglobin 11.6 g/dl (14.0-18.0); Imm Gran Abs Auto 0.09 X10*3/uL (0.00-0.03); Imm Gran Pct Auto 0.7 % (0.0-0.4); Lymphocytes Absolute Auto 0.8 X10*3/uL (1.2-4.9); Mean Corpuscular HGB Conc 34.6 g/dl (31.0-36.0); Mean Corpuscular Hemoglobin 30.6 pg (27.0-33.0); Mean Corpuscular Volume 88.4 fL (80.0-98.0); NRBC Abs Auto 0.000 X10*3/uL (0.0-0.012); NRBC Pct Auto 0.0 /100WBC (0.0-0.2); Platelet Count 160 X10*3/uL (160-400); Red Blood Count 3.79 X10*6/uL (4.60-5.80); White Blood Count 13.0 X10*3/uL (4.8-10.8)
--- NOTE | 2024-12-11 07:28 | PM.PNORT ---
Subjective Subjective Date of Service: 12/11/24 Interval history: Postop day 1 ORIF left wrist with Dr. Ayala Postop day 3 ORIF right ankle with Dr. Mendiola No overnight events Patient states the block is wearing off on the left hand Otherwise pain is manageable Physical Exam Vital Signs: Vital Signs: Last Vital Signs Temp 96.8 F 12/11/24 03:18 Pulse 54 12/11/24 03:18 Resp 18 12/11/24 03:18 BP 119/59 L 12/11/24 03:18 Pulse Ox 96 12/11/24 03:18 O2 Del Method Room Air 12/11/24 03:18 BMI result Body Mass Index 31.6 Const: General: cooperative, healthy appearing and no acute distress Resp: Effort & Inspection: normal respiratory effort and able to speak in complete sentences Cardio: Rate: regular rate Peripheral pulses: Peripheral pulses 2+ throughout GI: Palpation (GI): Soft to palpation Skin: General skin exam: no rashes or lesions noted Extrem: Other: Right ankle: Splint intact. Splint taken down to see skin:minor fracture blistering on the lateral incision site - stable. One very small blister on the medial incision site - stable. Able to slightly dorsiflex and plantar flex but significantly limited due to pain. Sensation intact. Pedal pulse intact. Left wrist: Splint intact. Able to move all digits. Edema in the hand and digits. Sensation intact. Capillary refill brisk. Psych: Appearance: grossly normal Mental Status: mental status grossly normal Attitude: cooperative Procedures Date of Service Date of Service: 12/11/24 Progress Note: A&P Assessment and plan (1) Closed fracture of left wrist: Status: Acute Assessment and Plan: Keep left upper extremity elevated on 2 pillows at all times. Encourage working on active finger range of motion. OT eval Any kind of walker we will need to be a forearm bearing walker Follow-up in 10-14 days for wound check, suture removal and postop radiographs At follow up The patient will be placed in either a short-arm cast or a volar wrist splint. Encouraged no lifting of anything heavier than a cell phone. Please encourage active and passive range of motion of the digits. (2) Closed displaced trimalleolar fracture of right ankle: Status: Acute Assessment and Plan: Nonweightbearing right lower extremity with walker Elevated on 3 pillows above heart level Begin aspirin 325 mg p.o. b.i.d. for DVT prophylaxis PT eval for rehab placement Time Spent With Patient Time: Total time managing care of this patient today ____ minutes. Quality Stroke Does the patient have a stroke diagnosis?: No VTE Prior VTE?: No VTE Risk Level:: Medical - moderate - high VTE Device Contraindication: Treatment Not Indicated VTE Drug Contraindication: Treatment Not Indicated
[2024-12-11 07:36] LABS: Glucose, Whole Blood 152 mg/dL (60-115)
[2024-12-11] MEDS: Cholecalciferol (Vitamin D3) 10 MCG TABLET PO (08:25)
[2024-12-11] MEDS: oxyCODONE HCl ER 10 MG TAB.ER.12H PO ×2 (08:25→20:51)
[2024-12-11] MEDS: Nicotine 14 MG PATCH.TD24 TRANSDERMA (08:26)
--- NOTE | 2024-12-11 09:10 | HO.POSTANES ---
Post Anesthesia Evaluation Post Anesthesia Evaluation Date of Service: 12/11/24 Vital Signs: Vital Signs Temp Pulse Resp BP Pulse Ox O2 Del Method 12/11/24 07:43 98.5 F 56 18 150/77 H 96 Room Air 12/11/24 03:18 96.8 F 54 18 119/59 L 96 Room Air 12/11/24 00:00 97.0 F 64 16 145/77 H 95 Room Air Anesthesia: Nerve Block and General Mental Status: Awake Pain Control: Satisfactory Nausea/Vomiting: None Hydration: Adequate Anesthesia-Related Issues: No Anes. Related Issues
--- NOTE | 2024-12-11 09:11 | PC.NURSE ---
patient does not want staff in the room when having a BM on the commode
--- NOTE | 2024-12-11 10:28 | PC.NURSE ---
okay to give IV pain meds early
[2024-12-11 11:28] LABS: Glucose, Whole Blood 154 mg/dL (60-115)
--- NOTE | 2024-12-11 12:23 | P.DS_ITS ---
DS: Providers Provider Date of Service: 12/11/24 <Shari Stevens PA-C - Last Filed: 12/11/24 14:17> Date of admission: 12/07/24 16:29 <VIJAY Cantrell Last Filed: 12/11/24 14:17> Date of discharge: 12/11/24 <Shari Stevens PA-C - Last Filed: 12/11/24 14:17> 12/12/24 <NEHA Worthy Last Filed: 12/12/24 16:17> Primary care physician: Unknown Physician <Shari Stevens PA-C - Last Filed: 12/11/24 14:17> Consults: 12/07/24 18:17 Consult to Case Management Routine Comment: left wrist fx, rt ankle fx pending ORIF rehab ? Consult to Hospitalist Routine Comment: Consulting Provider: [facility] Reason For Exam: routine medical management <VIJAY Cantrell Last Filed: 12/11/24 14:17> DS: Diagnosis Discharge Diagnosis (1) Closed fracture of left wrist: Status: Acute <VIJAY Cantrell Last Filed: 12/11/24 14:17> (2) Closed displaced trimalleolar fracture of right ankle: Status: Acute <VIJAY Cantrell Last Filed: 12/11/24 14:17> DS: Summary Hospital Course Hospital Course: 59 yo male admitted to the orthopedic service s/p Right ankle fracture and left wrist fracture. The patient underwent a successful ORIF right ankle on 12/08/[address] Mendiola and ORIF left wrist with Dr Ayala on 12/10/24. During their stay, their labs and vitals were stable. They were started on ASA 325mg tabs po bid for dvt ppx. They received PT and OT. Physical therapy : NWB RLE, elevate on three pillows Occupation Therapy: Left wrist splint to remain clean, dry and intact. Elevate on three pillows and work on hand from. Ok to use forearm walker Prior to discharge, his dressing was changed, incision clean dry and intact, new splint applied. Splint should remain intact and dry at all times. Any concerns with the dressing, please contact orthopedic office. No showering. The plan is to be discharged STR <Shari Stevens PA-C - Last Filed: 12/11/24 14:17> Time Attestation Discharge Coordination Time (in mins): 30 <Shari Stevens PA-C Last Filed: 12/11/24 14:17> Quality: Safe Use of Opioids Does Pt have an Active Cancer Diagnosis on the Problem List?: No <Shari Stevens PA-C - Last Filed: 12/11/24 14:17> Quality: Stroke Does the patient have a stroke diagnosis?: No <Shari Stevens PA-C - Last Filed: 12/11/24 14:17> Physical Exam Vital Signs: Vital Signs: Last Vital Signs Temp 98.6 F 12/11/24 11:54 Pulse 73 12/11/24 11:54 Resp 19 12/11/24 11:54 BP 136/67 12/11/24 11:54 Pulse Ox 95 12/11/24 11:54 O2 Del Method Room Air 12/11/24 11:54 BMI result Body Mass Index 31.6 <Shari Stevens PA-C Last Filed: 12/11/24 14:17> Const: General: cooperative, healthy appearing and no acute distress <NEHA Worthy Last Filed: 12/12/24 16:17> Resp: Effort & Inspection: normal respiratory effort and able to speak in complete sentences <NEHA Worthy Last Filed: 12/12/24 16:17> Cardio: Rate: regular rate <NEHA Worthy Last Filed: 12/12/24 16:17> Peripheral pulses: Peripheral pulses 2+ throughout <NEHA Worthy Last Filed: 12/12/24 16:17> GI: Palpation (GI): Soft to palpation <NEHA Worthy Last Filed: 12/12/24 16:17> Skin: General skin exam: no rashes or lesions noted <NEHA Worthy Last Filed: 12/12/24 16:17> Extrem: Other: Right ankle: Splint intact. Able to slightly flex and extend the digits of the right foot. Sensation intact. Pedal pulse intact. Left wrist: Splint intact. Able to move all digits. Edema in the hand and digits. Sensation intact. Capillary refill brisk. <NEHA Worthy - Last Filed: 12/12/24 16:17> Psych: Appearance: grossly normal <NEHA Worthy - Last Filed: 12/12/24 16:17> Mental Status: mental status grossly normal <NEHA Worthy - Last Filed: 12/12/24 16:17> Attitude: cooperative <NEHA Worthy - Last Filed: 12/12/24 16:17> DS: Data Data Completed and Pending Labs on day of discharge: Laboratory Results - last 24 hr 12/10/24 12/10/24 12/10/24 11:31 17:46 19:17 WBC RBC Hgb Hct MCV MCH MCHC RDW Plt Count MPV Immature Gran % (Auto) Neut % (Auto) Lymph % (Auto) Alexander % (Auto) Eos % (Auto) Baso % (Auto) Lymph # (Auto) Alexander # (Auto) Eos # (Auto) Baso # (Auto) Abs Immat Gran (auto) Absolute Neuts (auto) Absolute Nucleated RBC Nucleated RBC % (auto) Sodium Potassium Chloride Carbon Dioxide Anion Gap BUN Creatinine Estim Creat Clear Calc Estimated GFR POC Glucose 127 H 196 H 237 H Fasting Glucose Calcium 12/11/24 12/11/24 12/11/24 05:56 07:31 11:15 WBC 13.0 H RBC 3.79 L Hgb 11.6 L Hct 33.5 L MCV 88.4 MCH 30.6 MCHC 34.6 RDW 12.2 Plt Count 160 MPV 11.4 Immature Gran % (Auto) 0.7 H Neut % (Auto) 89.1 H Lymph % (Auto) 6.2 L Alexander % (Auto) 3.9 Eos % (Auto) 0.0 Baso % (Auto) 0.1 Lymph # (Auto) 0.8 L Alexander # (Auto) 0.5 Eos # (Auto) 0.0 Baso # (Auto) 0.0 Abs Immat Gran (auto) 0.09 H Absolute Neuts (auto) 11.6 H Absolute Nucleated RBC 0.000 Nucleated RBC % (auto) 0.0 Sodium 140 Potassium 3.9 D Chloride 105 Carbon Dioxide 27 Anion Gap 12 BUN 17 H Creatinine 0.82 Estim Creat Clear Calc 116.9 Estimated GFR > 60 POC Glucose 152 H 154 H Fasting Glucose 156 H Calcium 8.2 L <Shari Stevens PA-C - Last Filed: 12/11/24 14:17> Discharge Plan Discharge Anticipated Discharge Date/Time: 12/11/24 12:18 <Shari Stevens PA-C - Last Filed: 12/11/24 14:17> Patient Disposition: Xfer SNF <Shari Stevens PA-C - Last Filed: 12/11/24 14:17> Discharge Diagnosis: s/p ORIF left wrist, ORIF Rt ankle <Shari Stevens PA-C - Last Filed: 12/11/24 14:17> s/p ORIF left wrist, ORIF Rt ankle <NEHA Worthy - Last Filed: 12/12/24 16:17> Referrals: [facility] [Other] - 1 Week Dann Tinajero PA [Physician [facility], Hand Surgery] - 12/19/24 3:15 pm Referral Note: 12/19/24 at 3:15pm Physician,Unknown J [Primary Care Provider, Medical] - 1 Week <Shari Stevens PA-C - Last Filed: 12/11/24 14:17> Discharge Medications: New sennosides [Senna Lax] 8.6 mg Tablet 17.2 mg PO BEDTIME 7 Days Qty: 14 0RF oxycodone 10 mg tablet 10 mg PO Q4H PRN (Reason: Pain, Moderate(Pain Scale 4-6)) 7 Days Qty: 42 0RF Rx Instructions: Partial Fill upon patient request. celecoxib 200 mg Capsule 200 mg PO BID 30 Days Qty: 60 0RF acetaminophen 325 mg Tablet 650 mg PO Q6H PRN (Reason: Pain, Mild 1-3,Fever,Headache) 30 Days Qty: 240 0RF nicotine 14 mg/24 hr Patch 24 Hour 14 mg transdermal DAILY 14 Days Qty: 14 0RF aspirin 325 mg Tablet 325 mg PO BID 42 Days Qty: 84 0RF tamsulosin 0.4 mg Capsule 0.8 mg PO DAILY 14 Days Qty: 28 0RF Continued ascorbic acid (vitamin C) [Vitamin C] 1,000 mg Tablet 1,000 mg PO DAILY cyanocobalamin (vitamin B-12) [Vitamin B-12] 1,000 mcg Tablet 1,000 mcg PO DAILY polyethylene glycol 3350 [Miralax] 17 gram/dose Powder 21.25 g PO BEDTIME docusate sodium 100 mg Tablet 300 mg PO BEDTIME glucosamine HCl 1,500 mg Tablet 1,500 mg PO DAILY Probiotic Blend 2 billion cell-50 mg Capsule 1 cap PO DAILY pumpkin seed extract 500 mg Capsule 1,000 mg PO DAILY Cinculin (Trunature) 500 mg PO DAILY Vitamin D3 1 tab PO DAILY losartan 50 mg tablet 50 mg PO DAILY testosterone cypionate 200 mg/mL oil 200 mg IM WE chlorthalidone 25 mg tablet 25 mg PO DAILY clonazepam 0.5 mg tablet 0.5 mg PO TID PRN (Reason: Anxiety) naloxone [Narcan] 4 mg/actuation spray,non-aerosol 4 mg intranasal Q2M PRN (Reason: opioid overdose) 1 Days Qty: 2 1RF Rx Instructions: spray 1 dose into ONE nostril; alternate nostrils w each dose until help arrives methocarbamol 750 mg tablet 750 mg PO TID 90 Days Qty: 270 1RF pregabalin 225 mg capsule 225 mg PO Q12H 90 Days Qty: 180 1RF buprenorphine-naloxone [Suboxone] 8-2 mg film 1 film sublingual TID 30 Days Qty: 90 1RF Discontinued ibuprofen 800 mg tablet 800 mg PO BID PRN (Reason: Pain) omega 1-mvf-bfv-fish oil [Fish Oil] 1,000 (120-180) mg Capsule 1 cap PO DAILY <Shari Stevens PA-C - Last Filed: 12/11/24 14:17> Discharge Orders: Discharge Order (Routine); Ordered 12/12/24 Ordered By: Dann Tinajero <Shari Stevens PA-C - Last Filed: 12/11/24 14:17> Diet: Regular diet <Shari Stevens PA-C - Last Filed: 12/11/24 14:17> Regular diet <NEHA Worthy - Last Filed: 12/12/24 16:17> Activity on Discharge: Use cane or walker <Shari Stevens PA-C - Last Filed: 12/11/24 14:17> Use cane or walker <NEHA Worthy Last Filed: 12/12/24 16:17> Stand Alone Forms: Patient Portal Discharge page <VIJAY Cantrell Filed: 12/11/24 14:17> Print Language: Slovak <VIJAY Cantrell Filed: 12/11/24 14:17> Care Plan Goals: Restore function of joint <VIJAY Cantrell Filed: 12/11/24 14:17> Health Concerns: none <VIJAY Cantrell Filed: 12/11/24 14:17> Plan of Treatment: Physical Therapy Pain management DVT prophylaxis <VIJAY Cantrell Filed: 12/11/24 14:17> Assessment: * NWB x 6 weeks operative leg * ok to use forearm walker * Keep splint clean, dry and intact * Elevate leg above the level of the heart on 3 pillows * Any questions or concerns please call the office RIC * Follow up with Orthopedics in 2 weeks. <VIJAY Cantrell Last Filed: 12/11/24 14:17>
--- NOTE | 2024-12-11 15:28 | PC.NURSE ---
Pt asked to speak with CM, CM notified to speak with patient.
--- NOTE | 2024-12-11 16:18 | P.PNIM_ITS ---
Subjective Subjective Date of Service: 12/11/24 Interval History: awake, alert pain controlled denies new c/o Review of Systems feeling imrpoving Physical Exam 2 Exam: Exam: Appearance: Alert.? Oriented X3.? cvs: rrr, [id number] res: clear to auscultation ,no rhonchii or wheezing abd: no rebound or guarding ,nt, bs present. ext pulses present , no cyanosis . neuro: axo3 , nonfocal. Vital Signs: Vital Signs: Last Vital Signs Temp 98.6 F 12/11/24 15:56 Pulse 77 12/11/24 15:56 Resp 20 12/11/24 15:56 BP 121/61 12/11/24 15:56 Pulse Ox 77 L 12/11/24 15:56 O2 Del Method Room Air 12/11/24 15:56 BMI result Body Mass Index 31.6 Objective Data Active Medications Acetaminophen (Acetaminophen 325 Mg Tablet) 650 mg PO Q6H PRN PRN Reason: Pain, Mild 1-3,fever,headache Last Admin: 12/09/24 13:37 Dose: 650 mg Documented By: KOBE Ascorbic Acid (Ascorbic Acid 500 Mg Tablet) 1,000 mg PO DAILY [facility] Last Admin: 12/11/24 08:25 Dose: 1,000 mg Documented By: CEE Aspirin (Aspirin 325 Mg Tablet) 325 mg PO BID [facility] Last Admin: 12/11/24 08:25 Dose: 325 mg Documented By: CEE Buprenorphine/Naloxone (Buprenorphine/Naloxone 8/2 Mg Film) 1 film SUBLINGUAL TID [facility] Last Admin: 12/11/24 14:32 Dose: 1 film Documented By: CEE Calcium Carbonate (Calcium Carbonate 750 Mg Tab.Chew) 750 mg PO Q4H PRN PRN Reason: Heartburn Celecoxib (Celecoxib 200 Mg Capsule) 200 mg PO BID [facility] Last Admin: 12/11/24 08:25 Dose: 200 mg Documented By: CEE Clonazepam (Clonazepam 0.5 Mg Tablet) 0.5 mg PO TID PRN PRN Reason: Anxiety Cyanocobalamin (Cyanocobalamin (Vitamin B-12) 1,000 Mcg Tablet) 1,000 mcg PO DAILY [facility] Last Admin: 12/11/24 08:25 Dose: 1,000 mcg Documented By: CEE Dextrose (Dextrose 50 % 25 Gm/50 Ml Syringe) 25 gm IVPUSH Q15M PRN; Protocol PRN Reason: per Hypoglycemia Standing Ord. Docusate Sodium (Docusate Sodium 100 Mg Capsule) 300 mg PO BEDTIME [facility] Last Admin: 12/10/24 20:51 Dose: 300 mg Documented By: ODRISM Glucose (Glucose Gel 15 Gm Gel..Gram.) 15 gm PO Q15M PRN; Protocol PRN Reason: per Hypoglycemia Standing Ord. Hydromorphone HCl (Hydromorphone Hcl 0.5 Mg/0.5 Ml Syringe) 1 mg IVPUSH Q4H PRN; Protocol PRN Reason: Pain, Severe (Pain Scale 7-10) Last Admin: 12/11/24 14:32 Dose: 1 mg Documented By: CEE Cefazolin Sodium/Dextrose (Ancef) 2 gm in 50 mls @ 100 mls/hr IV POSTOP [facility] Insulin Human Lispro (Insulin Lispro 100 Unit/Ml 3 Ml Vial) 0 unit SUBCUT QIDACHS [facility]; Protocol Last Admin: 12/11/24 11:47 Dose: 2 unit Documented By: CEE Losartan Potassium (Losartan Potassium 50 Mg Tablet) 50 mg PO DAILY [facility]; Protocol On Hold: 12/09/24 09:21 Last Admin: 12/09/24 09:20 Dose: Not Given Documented By: KOBE Non-Admin Reason: Physician Held Med Comments: hold per Bacilio Salvador via [employer] due to BP. Magnesium Hydroxide (Milk Of Magnesia 30 Ml Oral.Susp) 30 ml PO DAILY PRN PRN Reason: Constipation Naloxone HCl (Naloxone Hcl 0.4 Mg/Ml Vial) 0.04 mg IVPUSH Q5M PRN PRN Reason: Excessive sedation or RR < 8 Naloxone HCl (Naloxone Hcl 0.4 Mg/Ml Vial) 0.04 mg IVPUSH Q5M PRN PRN Reason: Excessive sedation or RR < 8 Naloxone HCl (Naloxone Hcl 0.4 Mg/Ml Vial) 0.04 mg IVPUSH Q5M PRN PRN Reason: Excessive sedation or RR < 8 Naloxone HCl (Naloxone Hcl 0.4 Mg/Ml Vial) 0.04 mg IVPUSH Q5M PRN PRN Reason: Excessive sedation or RR < 8 Nicotine (Nicotine 14 Mg Patch.Td24) 14 mg TRANSDERMA DAILY [facility] Last Admin: 12/11/24 08:26 Dose: 14 mg Documented By: CEE Nicotine Polacrilex (Nicotine Polacrilex 2 Mg Gum) 2 mg BUCCAL Q2H PRN PRN Reason: Nicotine Cravings Last Admin: 12/08/24 14:11 Dose: 2 mg Documented By: KOBE Ondansetron HCl (Ondansetron Hcl 4 Mg/2 Ml Vial) 4 mg IVPUSH Q8H PRN PRN Reason: Nausea and Vomiting Oxycodone HCl (Oxycodone Hcl Immed Release 5 Mg Tablet) 10 mg PO Q4H PRN PRN Reason: Pain, Moderate(Pain Scale 4-6) Last Admin: 12/11/24 12:14 Dose: 10 mg Documented By: CEE Oxycodone HCl (Oxycodone Hcl Er 10 Mg Tab.Er.12h) 10 mg PO BID [facility] Last Admin: 12/11/24 08:25 Dose: 10 mg Documented By: CEE Polyethylene Glycol (Polyethylene Glycol 3350 17 Gm Powd.Pack) 17 gm PO BEDTIME [facility] Last Admin: 12/10/24 20:51 Dose: 17 gm Documented By: JUMA Pregabalin (Pregabalin 75 Mg Capsule) 225 mg PO Q12H [facility] Last Admin: 12/11/24 08:25 Dose: 225 mg Documented By: CEE Senna (Sennosides 8.6 Mg Tablet) 17.2 mg PO BEDTIME [facility] Last Admin: 12/10/24 20:51 Dose: 17.2 mg Documented By: DAWITRISSara Sodium Chloride (0.9 % Sodium Chloride Flush 3 Ml Syringe) 3 ml IVFLUSH QSHIFT [facility] Last Admin: 12/11/24 14:32 Dose: 3 ml Documented By: CEE Tamsulosin HCl (Tamsulosin Hcl 0.4 Mg Capsule) 0.8 mg PO DAILY [facility] Last Admin: 12/11/24 08:57 Dose: 0.8 mg Documented By: CEE Vitamin D (Cholecalciferol (Vitamin D3) 10 Mcg Tablet) 10 mcg PO DAILY [facility] Last Admin: 12/11/24 08:25 Dose: 10 mcg Documented By: CEE Labs 12/11/24 05:56 12/11/24 05:56 Labs: Laboratory Results - last 24 hr 12/10/24 12/10/24 12/11/24 17:46 19:17 05:56 MCV 88.4 MCH 30.6 MCHC 34.6 RDW 12.2 Plt Count 160 MPV 11.4 Immature Gran % (Auto) 0.7 H Neut % (Auto) 89.1 H Lymph % (Auto) 6.2 L [place] % (Auto) 3.9 Eos % (Auto) 0.0 Baso % (Auto) 0.1 Lymph # (Auto) 0.8 L [place] # (Auto) 0.5 Eos # (Auto) 0.0 Baso # (Auto) 0.0 Abs Immat Gran (auto) 0.09 H Absolute Neuts (auto) 11.6 H Absolute Nucleated RBC 0.000 Nucleated RBC % (auto) 0.0 Anion Gap 12 Estim Creat Clear Calc 116.9 Estimated GFR > 60 POC Glucose 196 H 237 H Fasting Glucose 156 H Calcium 8.2 L 12/11/24 12/11/24 07:31 11:15 MCV MCH MCHC RDW Plt Count MPV Immature Gran % (Auto) Neut % (Auto) Lymph % (Auto) [place] % (Auto) Eos % (Auto) Baso % (Auto) Lymph # (Auto) [place] # (Auto) Eos # (Auto) Baso # (Auto) Abs Immat Gran (auto) Absolute Neuts (auto) Absolute Nucleated RBC Nucleated RBC % (auto) Anion Gap Estim Creat Clear Calc Estimated GFR POC Glucose 152 H 154 H Fasting Glucose Calcium Assessment and Plan (1) Chronic, continuous use of opioids: Status: Acute (2) Urinary retention: Status: Acute Plan This is a 59-year-old male with past medical history hypertension, chronic pain disorder on Suboxone, fibromyalgia, anxiety, urinary hesitancy secondary to Suboxone with no history of prostate issues, multiple chronic back issues was seen in the emergency department after being brought in by ambulance secondary to falling from a ladder while working on his mother's home removing wells from the roof. Patient injured his left wrist and right ankle. Patient reported no loss of consciousness with no head or neck pain. Patient also denied any chest pain or abdominal pain. Patient presented with deformities in both the left wrist in the right ankle. Patient stated Ekaterinaid was helping with his pain management noting he is on Suboxone. Pt resides from [place] and is currently visiting with his mother and family. Pt planned on returning to [place] December 16. sats reported 77% error -patient asymptomatic , repeats sats (staff is aware). left wrist fx; Right ankle fx s/p ORIF right bimaleolar fx 12/08 timing of left wrist surgery TBD Management per orthopedic surgery Hypokalemia resolved with replacement Hold chlorthalidone/ HCTZ follow BMP HTN will hold losartan, chlorthalidone/HCTZ due to soft BP Hydralazine prn Chronic pain/fibromyalagia Suboxone Tylenol PRN No NSAIDs Urinary retention associated with suboxone use, no hx of prostate issues required orona catheter placement voiding trial in 48 hours consider flomax if BP allows Elevated fasting sugar reports sugar has been borderline and PCP is following hba1c is 6.5, patient says that he was recently in the [place] where his hemoglobin A1c was 7.4, he was taking Ozempic, currently does not want to continue Ozempic. Diabetic diet, We will add fingerstick with sliding scale. leukocytosis likely reactive from surgery First Degree AVB Incidental non consequential Patient not currently ace blockers tobacco dependence smoking cessation advised NRT Thank you for allowing us to participate in the care of this patient. We will follow along with you. Quality Stroke Does the patient have a stroke diagnosis?: No VTE Prior VTE?: No VTE Risk Level:: Medical - moderate - high VTE Device Contraindication: Treatment Not Indicated VTE Drug Contraindication: Treatment Not Indicated
[2024-12-11 16:42] LABS: Glucose, Whole Blood 153 mg/dL (60-115)
[2024-12-11 21:12] LABS: Glucose, Whole Blood 140 mg/dL (60-115)
[2024-12-12] VITALS (7 sets, daily range): BP systolic 128–152; BP diastolic 68–83; PULSE 60–88; RESP 15–20; TEMP 36–37.1; O2SAT 94–99
[2024-12-12] MEDS: oxyCODONE HCl Immed Release 5 MG TABLET 10 MG PO ×4 (02:37→16:45)
[2024-12-12 05:41] LABS: MANUAL DIFF FLAG NO
[2024-12-12 05:44] LABS: Hematocrit 33.9 % (42.0-52.0); Hemoglobin 11.8 g/dl (14.0-18.0); Imm Gran Abs Auto 0.03 X10*3/uL (0.00-0.03); Imm Gran Pct Auto 0.3 % (0.0-0.4); Lymphocytes Absolute Auto 2.3 X10*3/uL (1.2-4.9); Mean Corpuscular HGB Conc 34.8 g/dl (31.0-36.0); Mean Corpuscular Hemoglobin 30.9 pg (27.0-33.0); Mean Corpuscular Volume 88.7 fL (80.0-98.0); NRBC Abs Auto 0.000 X10*3/uL (0.0-0.012); NRBC Pct Auto 0.0 /100WBC (0.0-0.2); Platelet Count 161 X10*3/uL (160-400); Red Blood Count 3.82 X10*6/uL (4.60-5.80); White Blood Count 9.2 X10*3/uL (4.8-10.8)
[2024-12-12 06:21] LABS: Anion Gap 11 (12-20); Blood Urea Nitrogen 18 mg/dL (9-16); Calcium 8.3 mg/dL (8.4-10.2); Carbon Dioxide 29 mmol/L (22-29); Chloride 105 mmol/L (96-108); Creatinine Clr Calc Pharmacy 116.9; Estimated Glomerular Filt Rate > 60; Potassium 3.3 mmol/L (3.3-5.1); Sodium 142 mmol/L (135-145)
[2024-12-12 07:42] LABS: Glucose, Whole Blood 100 mg/dL (60-115)
[2024-12-12] MEDS: Nicotine 14 MG PATCH.TD24 TRANSDERMA (08:04)
[2024-12-12] MEDS: oxyCODONE HCl ER 10 MG TAB.ER.12H PO (08:06)
[2024-12-12] MEDS: 0.9 % Sodium Chloride Flush 3 ML SYRINGE IVFLUSH (08:07)
[2024-12-12] MEDS: Cholecalciferol (Vitamin D3) 10 MCG TABLET PO (08:13)
--- NOTE | 2024-12-12 08:45 | P.PNOP_ITS ---
Subjective Subjective Date of Service: 12/12/24 Interval history: Postop day 2 OR[address] Dr[address] Ayala Postop day 4 ORIF right ankle with Dr. Mendiola No overnight events Patient states the block is wearing off on the left hand Patient expresses concern for an area of discoloration at the base of the splint in the left wrist Otherwise pain is manageable No other acute complaints or concerns at this time Physical Exam Vital Signs: Vital Signs: Last Vital Signs Temp 97.2 F 12/12/24 07:46 Pulse 60 12/12/24 07:46 Resp 20 12/12/24 07:46 BP 138/83 12/12/24 07:46 Pulse Ox 96 12/12/24 07:46 O2 Del Method Room Air 12/12/24 07:46 BMI result Body Mass Index 31.6 Const: General: cooperative, healthy appearing and no acute distress Resp: Effort & Inspection: normal respiratory effort and able to speak in complete sentences Cardio: Rate: regular rate Peripheral pulses: Peripheral pulses 2+ throughout GI: Palpation (GI): Soft to palpation Skin: General skin exam: no rashes or lesions noted Extrem: Other: Right ankle: Splint intact. Able to slightly flex and extend the digits of the right foot. Sensation intact. Pedal pulse intact. Left wrist: Splint intact. Able to move all digits. Edema in the hand and di gits. Sensation intact. Capillary refill brisk. Psych: Appearance: grossly normal Mental Status: mental status grossly normal Attitude: cooperative Procedures Date of Service Date of Service: 12/12/24 Progress Note: A&P Assessment and plan (1) Closed fracture of left wrist: Status: Acute Assessment and Plan: Keep left upper extremity elevated on 2 pillows at all times. Encourage working on active finger range of motion. OT eval Any kind of walker we will need to be a forearm bearing walker Follow-up in 10-14 days for wound check, suture removal and postop radiographs At follow up The patient will be placed in either a short-arm cast or a volar wrist splint. Encouraged no lifting of anything heavier than a cell phone. Please encourage active and passive range of motion of the digits. (2) Closed displaced trimalleolar fracture of right ankle: Status: Acute Assessment and Plan: Nonweightbearing right lower extremity with walker Elevated on 3 pillows above heart level Begin aspirin 325 mg p.o. b.i.d. for DVT prophylaxis PT eval for rehab placement Time Spent With Patient Time: Total time managing care of this patient today ____ minutes. Quality Stroke Does the patient have a stroke diagnosis?: No VTE Prior VTE?: No VTE Risk Level:: Medical - moderate - high VTE Device Contraindication: Treatment Not Indicated VTE Drug Contraindication: Treatment Not Indicated
[2024-12-12 11:20] LABS: Glucose, Whole Blood 124 mg/dL (60-115)
--- NOTE | 2024-12-12 13:20 | MHC.CM.PN ---
DC FOR TODAY BY AMB TO [facility]
--- NOTE | 2024-12-12 13:33 | MHC.CM.PN ---
pt to be dcd to [facility] at 5 by bls
[2024-12-12 16:12] LABS: Glucose, Whole Blood 140 mg/dL (60-115)
--- NOTE | 2024-12-14 17:45 | P.OP_ITS ---
Operative Note Operative Note Date of Service: 12/08/24 Narrative: Date of Service: 12/08/24 Pre-op diagnosis: Right ankle bimalleolar fracture Post-op diagnosis: same Procedure: ORIF right jordan Implants: Sawyer Surgeon: Lalit Mendiola MD Anesthesia: GLMA and local Was an Tractor Sweeper Driver used for this Procedure?: Yes Tractor Sweeper Driver: Bethany Hall Estimated blood loss (mL): 100 IV fluids (mL): 1,000 Pathology: none sent Condition: stable Disposition: PACU Procedure in detail: Patient was brought to the operating room and placed supine on the operative table. All bony prominences were well padded and a time-out was called to identify proper site proper procedure proper surgeon. IV antibiotics per weight were administered. I began by exsanguinating limb is slightly tourniquet to 300 mm Hg. I then made a standard posterolateral incision over the fibula. Full- thickness flaps were taken down to the fibular shaft and distal fibula. The fracture was identified and cleaned with a combination of curette, rongeur and irrigation. A lobster claw was used to provisionally reduce the fracture and 2 lag screws were placed perpendicular to the fracture using standard AO technique. I then selected a 6 hole distal fibular locking plate was applied using standard AO technique. Biplanar fluoroscopy was used to confirm hardware position and fracture reduction. Once I was satisfied that both of these were acceptable I irrigated copiously and turned my attention to the medial side. The medial malleolar fracture was identified after skin incision. Full- thickness skin flaps were developed and, With a sharp tenaculum, the fracture was reduced. 2 threaded K-wires were then placed from distal to proximal and perpendicular to the fracture. Biplanar fluoroscopy was used to confirm positioning and then they were overdrilled and 2 44 mm 4.0 partially-threaded cannulated cancellous screws were placed across the fracture. I was satisfied with the position and the fracture reduction based on biplanar fluoroscopy. This syndesmosis was tested using external rotation test and was found to be stable. Therefore all instrumentation was removed and copious irrigation was performed. Absorbable suture and tony were used for closure and the patient was placed into sterile dressings and a well-padded posterior splint. Tourniquet was let down and the patient was extubated brought to recovery room in stable condition there were no known complications.
== END 2024-12-12 18:01 | disposition skilled nursing facility (03) | DRG 493 ==
LOC: HO.ED 17:45 → HO.EDOVER 17:51 → HO.S3 20:38
PROVIDERS: Nurse Practitioner Family; Orthopaedic Surgery; Physician Assistant Medical; Admitting Provider Physician Assistant; Emergency Provider Emergency Medicine; Visit Provider Physician Assistant
PROC: 0QSG04Z Reposition Right Tibia with Internal Fixation Device, Open Approach (ICD-10-PCS; principal; 2024-12-08 09:00)
PROC: 0PSJ04Z Reposition Left Radius with Internal Fixation Device, Open Approach (ICD-10-PCS; principal; 2024-12-10 11:50)
DX: S82.841A Displaced bimalleolar fracture of right lower leg, initial encounter for closed fracture (principal); F11.20 Opioid dependence, uncomplicated; S52.92XA Unspecified fracture of left forearm, initial encounter for closed fracture; R33.0 Drug induced retention of urine; G89.18 Other acute postprocedural pain; G89.4 Chronic pain syndrome; T40.495A Adverse effect of other synthetic narcotics, initial encounter; M79.7 Fibromyalgia; W11.XXXA Fall on and from ladder, initial encounter; Z87.891 Personal history of nicotine dependence; Z79.899 Other long term (current) drug therapy
CPT/HCPCS: 36415; 73110; 73200; 73600; 80048; 80076; 82947; 83036; 83735; 84439; 84443; 85025; 86850; 86900; 86901; 93005; 97110; 97116; 97161; 97165; 97535; 99285; C1713; J0131; J0665; J0690; J1071; J1100; J1171; J1596; J1885; J2003; J2004; J2250; J2405; J2704; J3010; J3360; J7120

== ENCOUNTER → 2024-12-07 14:56 | Outpatient (BNV) | payer MEDICARE, SELFPAY | PROVIDERS: Emergency Provider Emergency Medicine; Visit Provider Radiology Diagnostic Radiology | DX: S52.502A Unspecified fracture of the lower end of left radius, initial encounter for closed fracture (principal); S52.572A Other intraarticular fracture of lower end of left radius, initial encounter for closed fracture; S82.841A Displaced bimalleolar fracture of right lower leg, initial encounter for closed fracture; S82.61XA Displaced fracture of lateral malleolus of right fibula, initial encounter for closed fracture | CPT/HCPCS: 73110; 73600 ==

== ENCOUNTER 2024-12-07 16:29 | Outpatient (BNV) | payer MEDICARE, SELFPAY | END 2024-12-07 20:20 | PROVIDERS: Admitting Provider Physician Assistant; Emergency Provider Emergency Medicine; Visit Provider Internal Medicine Cardiovascular Disease | DX: I44.0 Atrioventricular block, first degree (principal) | CPT/HCPCS: 93010 ==

== ENCOUNTER 2024-12-07 16:29 | Outpatient (BNV) | payer MEDICARE, SELFPAY | END 2024-12-09 10:36 | PROVIDERS: Admitting Provider Physician Assistant; Emergency Provider Emergency Medicine; Visit Provider Radiology Diagnostic Radiology | DX: S52.591A Other fractures of lower end of right radius, initial encounter for closed fracture (principal); W11.XXXA Fall on and from ladder, initial encounter | CPT/HCPCS: 73200 ==

== ENCOUNTER → 2024-12-07 16:29 | Outpatient (BNV) | payer MEDICARE, SELFPAY | PROVIDERS: Admitting Provider Physician Assistant; Emergency Provider Emergency Medicine; Visit Provider Nurse Practitioner Family | DX: E87.6 Hypokalemia (principal); I10 Essential (primary) hypertension; G89.4 Chronic pain syndrome; F11.90 Opioid use, unspecified, uncomplicated | CPT/HCPCS: 99223; 99231; 99232 ==

== ENCOUNTER → 2024-12-07 16:29 | Outpatient (BNV) | payer MEDICARE, SELFPAY | PROVIDERS: Admitting Provider Physician Assistant; Emergency Provider Emergency Medicine; Visit Provider Physician Assistant | DX: S82.851A Displaced trimalleolar fracture of right lower leg, initial encounter for closed fracture (principal); S62.102A Fracture of unspecified carpal bone, left wrist, initial encounter for closed fracture; F11.90 Opioid use, unspecified, uncomplicated; G89.4 Chronic pain syndrome | CPT/HCPCS: J1171; J2003 ==

== ENCOUNTER 2024-12-19 10:55 | Outpatient (REF) | payer MEDICARE, SELFPAY ==
--- NOTE | ~2024-12-19 | XR_ITS ---
EXAMINATION: XR ANKLE, RIGHT CLINICAL INFORMATION: M25.571 - Pain in right ankle and joints of right foot post-ORIF, follow-up COMPARISON: December 19, 2024 TECHNIQUE: AP, lateral, and mortise views of the right ankle. FINDINGS: Side plate and screws have been placed across the distal fibular fracture. There are 2 interfragmentary screws. There is anatomic alignment and positioning without hardware failure or loosening. 2 medullary screws have been placed across the medial malleolar fracture. There is anatomic alignment without hardware failure or loosening. Skin tony are present medial and lateral to the ankle joint. The ankle mortise is congruent. There is no widening of the syndesmosis. Talar dome is intact. XR/XR ankle RT min 3V IMPRESSION: Post-ORIF bimalleolar fracture of the right ankle with restored anatomic alignment and position. Electronically signed by: Alberto Srivastava MD 12/19/2024 02:24 PM EDT
--- NOTE | ~2024-12-19 | XR_ITS ---
EXAMINATION: XR WRIST, LEFT CLINICAL INFORMATION: M25.532 - Pain in left wrist , follow-up postop. COMPARISON: December 07, 2024 TECHNIQUE: PA, lateral, and oblique views of the left wrist. FINDINGS: Volar buttressing plate and screws are placed across the distal radius and radial styloid fixing an intra-articular comminuted fracture. There is anatomic alignment and positioning. Overlying splint obscures bony details. Ulnar variance measures -3 mm XR/XR wrist LT min 3V IMPRESSION: Post-ORIF distal radial fracture with anatomic alignment and position. Electronically signed by: Alberto Srivastava MD 12/19/2024 02:27 PM EDT
== END 2024-12-19 10:56 | disposition home or self-care (01) ==
LOC: HO.HOSX 10:55
DX: Z47.89 Encounter for other orthopedic aftercare (principal); S82.851A Displaced trimalleolar fracture of right lower leg, initial encounter for closed fracture; S62.102A Fracture of unspecified carpal bone, left wrist, initial encounter for closed fracture; W11.XXXA Fall on and from ladder, initial encounter; Z98.890 Other specified postprocedural states
CPT/HCPCS: 29085; 29515; 73110; 73610; 99212

== ENCOUNTER 2024-12-19 13:51 | Outpatient (AMB) | payer MEDICARE, SELFPAY ==
--- NOTE | 2024-12-19 14:13 | MHC.OFFVIS ---
Vital Signs 12/19/24 14:18 Height 6 ft Weight 203 lb BMI 27.5 Handedness Right Intake Visit Reasons: LT, wrist ORIF 12/10/24,S/p RT ankle ORIF 12/08/24 Intake Note: Ankur is a 59 year old - hand dominant male who presents today for a 1 week post-op S/P Left Wrist ORIF, DOS: 12/10/[address] Ayala, S/P Right Ankle ORIF, DOS: 12/08/[address] Mendiola. Patient presented to [facility] ED on 12/07/24 reporting he fell off a ladder while power washing his mother's house, ~ 5 ft. drop. Patient reports his left wrist and right ankle are doing fantastic. He says he expects pain due to the situation he is in. Reports numbness due to his radial nerve but ROM is not a problem. Accompanied by: spouse Allergies glipizide Allergy (Severe, Verified 12/19/24 14:18) N/V for 5 days pentazocine (From Talwin) Allergy (Severe, Verified 12/19/24 14:18) Very rapid HR and high BP HPI HPI LT, wrist ORIF 12/10/24,S/p RT ankle ORIF 12/08/24: Details: Ankur is a 59 year old - hand dominant male who presents today for a 1 week post-op S/P Left Wrist ORIF, DOS: 12/10/[address] Ayala, S/P Right Ankle ORIF, DOS: 12/08/[address] Mendiola. Patient presented to [facility] ED on 12/07/24 reporting he fell off a ladder while power washing his mother's house, ~ 5 ft. drop. Patient reports his left wrist and right ankle are doing fantastic. He says he expects pain due to the situation he is in. Reports numbness due to his radial nerve but ROM is not a problem. Patient reports he has had numbness in the radial nerve distribution for a long time, as he had a previous injury to this area. [facility]LY [facility], [facility] Medical History Hypertension Opioid dependence Opioid dependence Thoracic radiculopathy Spondylosis of lumbar spine Disc degeneration, lumbar Chronic, continuous use of opioids Chronic pain syndrome Thoracic spine pain Low back pain Social History Household Members: Spouse Housing: House Are you a primary skin care consultant to a significant other at home: No Do you presently have visiting nurse or other home services: No Patient Tobacco Use Status: Former Tobacco user e-Cigarette/Vaping Use: Never Used Second Hand Smoke Exposure: No service: No Review of Systems Const All systems reviewed & are unremarkable except as noted in HPI and below Physical Exam Vital Signs: BMI result Body Mass Index 27.5 Extrem Other: Right ankle exam: Patient's right ankle swollen and ecchymotic to inspection There is some slight drainage of blood from the incision sites when dressing and splint are removed Fracture blisters also noted around both medial and lateral incision sites No erythema noted No evidence of infection Patient reports no tenderness to palpation of the right ankle Distal sensation intact Capillary refill brisk Left wrist exam: Patient is alert, oriented, and in no acute distress. Neuro: Normal sensation of the tips of all digits of the left hand at this time Vascular: Cap refill brisk Pain: No tenderness to palpation about the left distal radius ROM: Patient is able to make a closed fist and extend all digits of the left hand fully Skin: Well approximated and well healing incision site noted on the volar left wrist No further drainage from incision site No lacerations or abrasions. General: Ecchymosis noted of the left distal radius, minimal edema No erythema or evidence of infection Psych: Appears grossly normal Affect normal Attitude cooperative Office Procedures Casting/Splints 95582-Ghljl Leg splint application Procedure code (CPT) selection complete Casting/Splints 52917-Puqy/Wrist Cast Application Procedure code (CPT) selection complete Results Reviewed Results Reviewed: X-rays obtained in the office today and independently reviewed by me, Dann Tinajero PA-C, demonstrate status post ORIF of both left distal radius and right ankle with all orthopedic hardware in place and in satisfactory clinical alignment. Assessment & Plan Assessment & Plan (1) Closed fracture of left wrist: Code(s): S62.102A - Fracture of unspecified carpal bone, left wrist, initial encounter for closed fracture Category: Medical (2) Closed displaced trimalleolar fracture of right ankle: Code(s): S82.851A - Displaced trimalleolar fracture of right lower leg, initial encounter for closed fracture Category: Medical Plan 1. Status post right ankle ORIF DOS 12/08/2024 Patient appears to be recovering fairly well postoperatively Patient is educated about the typical recovery course At this time, due to the drainage that still appears to be occurring from the incision sites, as well as fracture blisters and remaining significant swelling, I feel it is best for the patient to be placed once again into a posterior splint rather than a cast Marvin are also left in, as the patient is still experiencing some drainage from the incisions and I feel that leaving marvin in gives the incision of the best chance to heal well Patient is booked a follow-up appointment in one-week for removal of the splint, anticipation of staple removal and placement into a short-leg cast Patient is educated he will be totally nonweightbearing for a total of 6 weeks after surgery, at which point we might be able to explore weight-bearing Patient understands this and is amenable to this plan 2. Status post left distal radius ORIF DOS 12/10/2024 Patient appears to be recovering very well postoperatively Patient is educated about the typical recovery course At this time, sutures are removed from the incision of the left wrist and Steri-Strips applied without issue Patient is placed into a short-arm cast Patient is educated on proper cast care and precautions 2 lb weight limit in left hand Patient understands this is amenable to this plan Follow-up in 2 weeks, anticipate cast removal at that time with repeat x-rays, sooner with any acute concerns Orders: Orders XR ankle RT min 3V 12/19/24 M25.571 - Pain in right ankle and joints of right foot XR wrist LT min 3V 12/19/24 M25.532 - Pain in left wrist Coding Level of Care Code Global (47569) Diagnoses Closed fracture of left wrist S62.102A Closed displaced trimalleolar fracture of right ankle S82.851A CPT Codes Splint - CPT: 42661-Ncyen Leg splint application ([id number]) Casting - CPT: 93558-Tdgi/Wrist Cast Application ([id number])
[2024-12-19 14:18] VITALS: BMI 27.5
== END 2024-12-19 15:51 | disposition home or self-care (01) ==
LOC: HO.HOS 13:52
DX: S62.102A Fracture of unspecified carpal bone, left wrist, initial encounter for closed fracture (principal); S82.851A Displaced trimalleolar fracture of right lower leg, initial encounter for closed fracture
CPT/HCPCS: 29085; 29515; 99024

== ENCOUNTER → 2024-12-19 13:57 | Outpatient (BNV) | payer MEDICARE, SELFPAY | PROVIDERS: Visit Provider Radiology Diagnostic Radiology | DX: M25.571 Pain in right ankle and joints of right foot (principal); M25.532 Pain in left wrist | CPT/HCPCS: 73110; 73610 ==

== ENCOUNTER 2024-12-25 08:28 | Outpatient (REF) | payer MEDICARE, SELFPAY ==
--- OUTSIDE RECORDS SUMMARY | 2024-06-01 13:00 | XMS_ITS ---
Author Organization [facility] Address [address] [place] [address] Care Team Providers Care Selector Packer Name Role Phone Devang Gardner Unavailable [phone] Federico Mcghee Unavailable [phone] REASON FOR VISIT left L5-S1 NATALIE , Dr. Castle Encounters Encounter Location Date Provider Diagnosis [facility] [address] [place] [address] 06/01/2024 Federico Mcghee Plan Of Treatment No Information Progress Notes * Ankur MAGAÑADOB:08/1964 (59 yo M)Acc No.[id number]:06/01/2024 Progress Notes Patient: Danny pendletonAnkur vitale Provider: Reena Mcghee MD :1965 A ge:59 Y S ex:Male Date:06/01/2024 Address:[address] [place] [address] [address] , [id number] Subjective: * Chief Complaints: * l eft L5-S1 Dr. Tin ESTRADA * Electronic signature of Andr gurinder Mcghee MD on 12/25/2024 at 09:30 AM EDT Sign off status: Pending * Provider: Reena Mcghee MD Date: 0 06/01/2024 Generated for Printi ng/Faxing/eTransmitting on: 0 12/25/2024 09:30 AM EDT
--- OUTSIDE RECORDS SUMMARY | 2024-06-08 13:50 | XMS_ITS ---
Author Organization [facility] Address [address] [place] [address] Care Team Providers Care Cash Control Specialist Name Role Phone Devang Gardner Unavailable [phone] Federico Mcghee Unavailable [phone] REASON FOR VISIT left L5-S1 NATALIE , Dr. Castle Encounters Encounter Location Date Provider Diagnosis [facility] [address] [place] [address] 06/08/2024 Federico Mcghee Plan Of Treatment No Information Progress Notes * Ankur MAGAÑADOB:08/1964 (59 yo M)Acc No.[id number]:06/08/2024 Progress Notes Patient: Danny pendletonAnkur vitale Provider: Reena Mcghee MD :1965 A ge:59 Y S ex:Male Date:06/08/2024 Address:[address] [place] [address] [address] , [id number] Subjective: * Chief Complaints: * l eft L5-S1 Dr. Tin ESTRADA * Electronic signature of Andr gurinder Mcghee MD on 12/25/2024 at 09:30 AM EDT Sign off status: Pending * Provider: Reena Mcghee MD Date: 0 06/08/2024 Generated for Printi ng/Faxing/eTransmitting on: 0 12/25/2024 09:30 AM EDT
--- NOTE | ~2024-12-25 | XR_ITS ---
EXAMINATION: XR WRIST, LEFT CLINICAL INFORMATION: M25.532 - Pain in left wrist COMPARISON: December 19, 2024 TECHNIQUE: PA, lateral, and oblique views of the left wrist. FINDINGS: Metallic plate placed along the volar aspect of the distal radius with multiple screws anchoring the distal epiphysis metaphysis and distal diaphysis with the loosening surrounding the screws. The plate is intact. Intra-articular comminuted fracture distal radius without gross callus formation. Distal ulna is intact. Carpal bones are intact with normal alignment. XR/XR wrist LT min 3V IMPRESSION: No gross healing. Concerning loosening along the screws of the metallic plate Electronically signed by: Chaz Johnson MD 12/25/2024 02:07 PM EDT
--- NOTE | ~2024-12-25 | XR_ITS ---
EXAMINATION: XR ANKLE, RIGHT CLINICAL INFORMATION: M25.571 - Pain in right ankle and joints of right foot COMPARISON: December 19 and December 07, 2024 TECHNIQUE: AP, lateral, and mortise views of the right ankle. FINDINGS: Overlying cast or splint remains in place. Skin tony remain in place. Changes from ORIF related to bimalleolar fractures is again noted. Hardware remains in place and stable. Ankle mortise and syndesmosis appear anatomically aligned. Medial malleolar fracture is minimally visible. There is slightly increased periosteal new bone formation Fibular fracture cephalad to the syndesmotic ligaments remains minimally visible. XR/XR ankle RT min 3V IMPRESSION: Bimalleolar fracture post-ORIF with evidence of healing. Electronically signed by: Alberto Srivastava MD 12/25/2024 01:24 PM EDT
--- OUTSIDE RECORDS SUMMARY | 2024-12-25 09:30 | XMS_ITS | Patient Health Record ---
Author Organization [facility] Address [address] [place] [address] Care Team Providers Care Controller Repairer And Tester Name Role Phone Devang Gardner Unavailable [phone] Julio Ricci Unavailable [phone] Federico Mcghee Unavailable [phone] Arabella Green Unavailable [phone] Allergies Allergen (clinical drug ingredient) Drug/Non Drug Allergy documented on EMR Reaction Allergy Type Onset Date Status Erick Unknown Drug Allergy Active glipizide Glipizide Unknown Drug Allergy Active Reason For Referral No Information Medications Medication SIG (Take, Route, Frequency, Duration) Notes Start Date End Date Status Suboxone 8-2 MG Film 1 film under the to ngue and allow to dissolve Sublingual three times a day Active Losartan Potassium 100 MG Tablet 1 tablet Orally Once a day; Duration: 30 day(s) Active Ozempic (0.25 or 0.5 MG/DOSE) 2 MG/3ML Solution Pen-injector Subcutaneous; Duration: 42 Days Active Testosterone Cypionate 200 MG/ML Solution 0.5 ml Injection once a week Active clonazePAM 0.5 MG Tablet 1 tablet at bed time Orally BID PRN Active Chlorthalidone 25 MG Tablet 1 tablet in the morning with food Orally Once a day; Duration: 30 day(s) Active Potassium Chloride 20 MEQ Packet 1 packet with food Orally Once a day; Duration: 30 day(s) Active Pregabalin 225 MG Capsule 1 capsule in t he evening 1 to 3 hours before bedtime Orally Q 12 hours; Duration: 90 days 10/30/2024 Active Ibuprofen 800 MG Tablet 1 tablet with fo od or milk as needed Orally Q 12 hours; Duration: 90 days Active Meloxicam 15 MG Tablet 1 tablet with marcellus d Orally Once a day as needed for pain; Duration: 90 days Active Methocarbamol 750 MG Tablet 1-2 tabs Ora lly Q 12 hours as needed for pain; Duration: 90 days Active Social History Tobacco Use: Social History Observation Description Date Details (start date - stop date) Former Smoker NA - NA Social History Alcohol Social Info Question Answer Notes Alcohol Do you drink alcohol ? No Tobacco Use: Social Info Question Answer Notes Tobacco Use/Smoking Are you a former smoker Problems Problem Type SNOMED Code ICD Code Onset Dates Problem Status W/U Status Risk Notes Problem Chronic pain syndrome (241176877) Chronic pain syndrome (G89.4) Active confirmed Problem Solitary sacroiliitis (941234750) Sacroiliitis, not elsewhere classified (M46.1) Active confirmed Problem Lumbosacral spondylosis without myelopathy (03605558) Spondylosis without myelopathy or radiculopathy, lumbar region (M47.816) Active confirmed Problem Lumbosacral spondylosis without myelopathy (disorder) (71766817) Spondylosis without myelopathy or radiculopathy, lumbosacral region (M47.817) Active confirmed Problem Lumbosacral spondylosis without myelopathy (35232358) Spondylosis without myelopathy or radiculopathy, sacral and sacrococcygeal region (M47.818) Active confirmed Problem Displacement of lumbar intervertebral disc without myelopathy (58835795) Other intervertebral disc displacement, lumbar region (M51.26) Active confirmed Problem Degeneration of lumbar intervertebral disc (61468905) Other intervertebral disc degeneration, lumbar region (M51.36) Active confirmed Problem Lumbar radiculopathy (278458456) Radiculopathy, lumbar region (M54.16) Active confirmed Problem Sciatica (61307432) Sciatica, unspecified side (M54.30) Active confirmed Problem Lumbar spondylosis (499488664) Lumbar spondylosis (M47.816) Active confirmed Problem Lumbar radiculopathy (150723038) Lumbar radiculopathy (M54.16) Active confirmed Problem Muscle spasm (80648800) Muscle spasm (M62.838) Active confirmed Problem Thoracic back pain (593987650) Thoracic back pain (M54.6) Active confirmed Problem Sacroiliitis (89628840) Sacroiliitis (M46.1) Active confirmed Problem Degenerative disc disease (73559377) DDD (degenerative disc disease), lumbar (M51.36) Active confirmed Problem Thoracic spondylosis (774850411) Thoracic spondylosis (M47.814) Active confirmed Problem Arthropathy of lumbar facet joint (924037738) Lumbar facet arthropathy (M12.88) Active confirmed Problem Sacroiliac disorder (disorder) (788107075) Sacroiliac dysfunction (M53.3) Active confirmed Problem Arthropathy of lumbar facet joint (339960287) Lumbar facet arthropathy (M46.96) Active confirmed Vital [...] N/A Encounters Encounter Location Date Provider Diagnosis [facility] [address] [place] [address] 02/01/2024 Arabella Green Chronic pain syndrom e G89.4 ; Thoracic spondylosis M47.814 ; Lumbar radiculopathy M54.16 ; Lumbar spondylosis M47.816 ; Lumbar facet arthropathy M12.88 ; DDD (degenerative disc disease), lumbar M51.36 and Sacroiliitis M46.1 [facility] [address] [place] [address] 03/02/2024 Federico Mcghee Radiculopathy, lumbar region M54.16 and Other intervertebral disc displacement, lumbar region M51.26 [facility] [address] [place] [address] 03/21/2024 Federico Mcghee Chronic pain syndrome G89.4 ; Lumbar radiculopathy M54.16 ; Thoracic spondylosis M47.814 ; Lumbar spondylosis M47.816 ; Lumbar facet arthropathy M12.88 ; DDD (degenerative disc disease), lumbar M51.36 and Sacroiliitis M46.1 [facility] [address] [place] [address] 05/16/2024 Arabella Green Chronic pain syndrom e G89.4 ; Lumbar radiculopathy M54.16 ; Thoracic spondylosis M47.814 ; Lumbar spondylosis M47.816 ; Lumbar facet arthropathy M12.88 ; DDD (degenerative disc disease), lumbar M51.36 and Sacroiliitis M46.1 [facility] [address] [place] [address] 06/01/2024 Federico Mcghee Radiculopathy, lumbar region M54.16 ; Other intervertebral disc displacement, lumbar region M51.26 and Other intervertebral disc degeneration, lumbar region with discogenic back pain and lower extremity pain M51.362 [facility] [address] [place] [address] 06/14/2024 Arabella Green Chronic pain syndrom e G89.4 ; Lumbar radiculopathy M54.16 ; Thoracic spondylosis M47.814 ; Lumbar spondylosis M47.816 ; Lumbar facet arthropathy M12.88 ; DDD (degenerative disc disease), lumbar M51.36 ; Sacroiliitis M46.1 and Spondylosis without myelopathy or radiculopathy, lumbar region M47.816 [facility] [address] [place] [address] 10/30/2024 Devang Gardner Chronic pain syndrom e G89.4 ; Lumbar radiculopathy M54.16 ; Thoracic spondylosis M47.814 ; Lumbar spondylosis M47.816 ; Lumbar facet arthropathy M12.88 ; DDD (degenerative disc disease), lumbar M51.36 ; Sacroiliitis M46.1 and Spondylosis without myelopathy or radiculopathy, lumbar region M47.816 [facility] [address] [place] [address] 04/26/2024 Arabella Green [facility] [address] [place] [address] 06/14/[address] [facility] [address] [place] [address] 06/18/2024 Federico [facility] Lumbar spondylosis M47.816 Assessments Encounter Date Diagnosis [...] side effects. . He is leaving for [place] on 09/18/22 and returning to [place] in end of October. He is requesting a paper prescription for Lyrica so that he can fill it while away. Al questions were addressed. He will follow up when he returns to [place]. 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 Alleviating factors include sitting, repositioning, and rest. [...] He recently returned from his trip to [place] and would like to obtain a refill of his Meloxicam and Methocarbamol. He reports he obtained poor relief with the previously prescribed Cyclobenzaprine and has trialed Tizanidine with his pain management in [place] with side effects of low BP and dizziness. He has since been re-started back on his Methacarbamol which he has taken years ago with good relief. Medical records from [facility] in [place], [place] available for review (scanned into chart). [...] time. He is planning on going to [place] for the Summer and will be back [...] He has underwent bilateral SIJ injections in [place] by Dr. Praneeth Escoto, most recently in 12/2020 with 80-90% relief lasting about six months. Records reviewed from [facility] in [place] (scanned into chart). Risks, benefits, side effects, [...] He has underwent bilateral SIJ injections in [place] by Dr. Praneeth Escoto, most recently in 12/2020 with 80-90% relief lasting about six months. Will request records from [facility] (in [place]) from Dr. Praneeth Escoto. Risks, benefits, side [...] cancel due to not being approved by workman's comp, will reschedule once approved. He reports [...] recently with Dr. Lorna Estrada, at the [facility] in [place] from 08/2019 until recently. He has been undergoing injections and taking Suboxone, Lyrica and Robaxin with good relief. The patient's main residence is in [place]. He will be residing in [place] until August 2021. He is requesting a refill of his medications. I have explained that I do not prescribe Suboxone and referred the patient to the online registry. There are no prior medical records or prior [facility]- forms available to review. We will request [...] OF CARE TOXICOLOGY REPORT Reason for Toxicology: penitentiary pain meds Test Date/Time: Oxycodone (OXY): Morphine [...] drug interactions and side effects. b. The [place] prescription drug Database (PDMP, E-FORCSE) was accessed and reviewed to confirm that [...] side effects. . He is leaving for [place] on 09/18/22 and returning to [place] in end of October. He is requesting a paper prescription for Lyrica so that he can fill it while away. Al questions were addressed. He will follow up when he returns to [place]. 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 Alleviating factors include sitting, repositioning, and rest. [...] He recently returned from his trip to [place] and would like to obtain a refill of his Meloxicam and Methocarbamol. He reports he obtained poor relief with the previously prescribed Cyclobenzaprine and has trialed Tizanidine with his pain management in [place] with side effects of low BP and dizziness. He has since been re-started back on his Methacarbamol which he has taken years ago with good relief. Medical records from [facility] in [place], [place] available for review (scanned into chart). [...] time. He is planning on going to [place] for the Summer and will be back [...] He has underwent bilateral SIJ injections in [place] by Dr. Praneeth Escoto, most recently in 12/2020 with 80-90% relief lasting about six months. Records reviewed from [facility] in [place] (scanned into chart). Risks, benefits, side effects, [...] He has underwent bilateral SIJ injections in [place] by Dr. Praneeth Escoto, most recently in 12/2020 with 80-90% relief lasting about six months. Will request records from [facility] (in [place]) from Dr. Praneeth Escoto. Risks, benefits, side [...] PHYSICAL THERAPY/HOME EXERCISE PROGRAM: Last completed in 2018 OTHER: PROCEDURES/INTERVE NTONS: SIJ injections in [place] [...] OF CARE TOXICOLOGY REPORT Reason for Toxicology: director long term care pain meds Test Date/Time: Oxycodone (OXY): [...] drug interactions and side effects. b. The [place] prescription drug Database (PDMP, E-FORCSE) was accessed and reviewed to confirm that [...] side effects. . He is leaving for [place] on 09/18/22 and returning to [place] in end of October. He is requesting a paper prescription for Lyrica so that he can fill it while away. Al questions were addressed. He will follow up when he returns to [place]. 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 Alleviating factors include sitting, repositioning, and rest. [...] He recently returned from his trip to [place] and would like to obtain a refill of his Meloxicam and Methocarbamol. He reports he obtained poor relief with the previously prescribed Cyclobenzaprine and has trialed Tizanidine with his pain management in [place] with side effects of low BP and dizziness. He has since been re-started back on his Methacarbamol which he has taken years ago with good relief. Medical records from [facility] in [place], [place] available for review (scanned into chart). [...] time. He is planning on going to [place] for the Summer and will be back [...] He has underwent bilateral SIJ injections in [place] by Dr. Praneeth Escoto, most recently in 12/2020 with 80-90% relief lasting about six months. Records reviewed from [facility] in [place] (scanned into chart). Risks, benefits, side effects, [...] He has underwent bilateral SIJ injections in [place] by Dr. Praneeth Escoto, most recently in 12/2020 with 80-90% relief lasting about six months. Will request records from [facility] (in [place]) from Dr. Praneeth Escoto. Risks, benefits, side [...] PHYSICAL THERAPY/HOME EXERCISE PROGRAM: Last completed in 2018 OTHER: PROCEDURES/INTERVE NTONS: [place] injections in [place] [...] OF CARE TOXICOLOGY REPORT Reason for Toxicology: penitentiary pain meds Test Date/Time: Oxycodone (OXY): Morphine [...] drug interactions and side effects. b. The [place] prescription drug Database (PDMP, E-FORE) was accessed [...] His last MRI lumbar spine was in 2020. To address his increased pain, we will [...] side effects. . He is leaving for [place] on 09/18/22 and returning to [place] in end of October. He is requesting a paper prescription for Lyrica so that he can fill it while away. Al questions were addressed. He will follow up when he returns to [place]. 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 Alleviating factors include sitting, repositioning, and rest. [...] He recently returned from his trip to [place] and would like to obtain a refill of his Meloxicam and Methocarbamol. He reports he obtained poor relief with the previously prescribed Cyclobenzaprine and has trialed Tizanidine with his pain management in [place] with side effects of low BP and dizziness. He has since been re-started back on his Methacarbamol which he has taken years ago with good relief. Medical records from [facility] in [place], [place] available for review (scanned into chart). [...] time. He is planning on going to [place] for the Summer and will be back in the fall. All questions answered to patient's satisfaction. Patient to f/u PRN (he will call when he is back in [facility]). 08/07/21: Patient presents to clinic for a [...] He has underwent bilateral SIJ injections in [place] by Dr. Praneeth Escoto, most recently in 12/2020 with 80-90% relief lasting about six months. Records reviewed from [facility] in [place] (scanned into chart). Risks, benefits, side effects, [...] He has underwent bilateral SIJ injections in [place] by Dr. Praneeth Escoto, most recently in 12/2020 with 80-90% relief lasting about six months. Will request records from [facility] (in [place]) from Dr. Praneeth Escoto. Risks, benefits, side [...] PHYSICAL THERAPY/HOME EXERCISE PROGRAM: Last completed in 2018 OTHER: PROCEDURES/INTERVE NTONS: [place] injections in [place] [...] OF CARE TOXICOLOGY REPORT Reason for Toxicology: director long term care pain meds Test Date/Time: Oxycodone (OXY): [...] drug interactions and side effects. b. The [place] prescription drug Database (PDMP, E-FORCSE) was accessed and reviewed to confirm that [...] His last MRI lumbar spine was in 2020. To address his increased pain, we will [...] side effects. . He is leaving for [place] on 09/18/22 and returning to [place] in end of October. He is requesting a paper prescription for Lyrica so that he can fill it while away. Al questions were addressed. He will follow up when he returns to [place]. 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 Alleviating factors include sitting, repositioning, and rest. [...] He recently returned from his trip to [place] and would like to obtain a refill of his Meloxicam and Methocarbamol. He reports he obtained poor relief with the previously prescribed Cyclobenzaprine and has trialed Tizanidine with his pain management in [place] with side effects of low BP and dizziness. He has since been re-started back on his Methacarbamol which he has taken years ago with good relief. Medical records from [facility] in [place], [place] available for review (scanned into chart). [...] time. He is planning on going to [place] for the Summer and will be back [...] He has underwent bilateral SIJ injections in [place] by Dr. Praneeth Escoto, most recently in 12/2020 with 80-90% relief lasting about six months. Records reviewed from [facility] in [place] (scanned into chart). Risks, benefits, side effects, [...] He has underwent bilateral SIJ injections in [place] by Dr. Praneeth Escoto, most recently in 12/2020 with 80-90% relief lasting about six months. Will request records from [facility] (in [place]) from Dr. Praneeth Escoto. Risks, benefits, side [...] OF CARE TOXICOLOGY REPORT Reason for Toxicology: penitentiary pain meds Test Date/Time: Oxycodone (OXY): Morphine [...] drug interactions and side effects. b. The [place] prescription drug Database (PDMP, E-FORFollozeE) was accessed and reviewed to confirm that [...] padding, shoulder straps, pendulous abdomen design, prefabricated, [id number], and/or Lumbar-sacral orthosis (LSO), sagittal control, with rigid anterior and posterior panels, posterior extends from sacrococcygeal junction to T-9 vertebra, produces intracavitary pressure to reduce load on the intervertebral discs, includes straps, closures, may include padding, shoulder straps, pendulous abdomen design, prefabricated, [id number] Patient is experiencing increased lumbosacral pain and [...] deformed spine. - Brace is needed for director long term care wear to increase function. - Produces [...] padding, shoulder straps, pendulous abdomen design, prefabricated, [id number]-grkps, and/or Lumbar-sacral orthosis (LSO), sagittal control, with rigid anterior and posterior panels, posterior extends from sacrococcygeal junction to T-9 vertebra, produces intracavitary pressure to reduce load on the intervertebral discs, includes straps, closures, may include padding, shoulder straps, pendulous abdomen design, prefabricated, [id number] Patient is experiencing increased lumbosacral pain and [...] deformed spine. - Brace is needed for penitentiary wear to increase function. - Produces intracavitary [...] procedure dressing applied. 0.9% Sodium Chloride INJ [facility] 10ml SDV ND: 9441-25739-54 LOT:[id number] EXP:04/10 Lidocaine HCL 1% 10 mg/mL 50 mL vial NDC:1222-9716-13 LOT:[id number] EXP:08/10 Omnipaque, Iohexol 240 mgI/ml 50ml NDC# 6842-7186-90 LOT# [id number] EXP:04/12 Dexamethasone Sodium Phosphate 10mg/ml 1ml [facility] NDC:[address]-47 LOT:[id number] EXP:08/1006/01/2024 Other LT L5/S1 Transforaminal Epidural Steroid Injection In Room: 801 Start: 807 Stop: 815 Out Room: 818 Fluro time: 28 Patient prepped sterile to dry. Post procedure dressing applied. 0.9% Sodium Chloride INJ [facility] 10ml SDV NDC: 6955-5269-87 LOT# [id number] EXP: 04/11 Lidocaine HCL 1% 10 mg/mL 50 mL vial NDC:2309-6809-49 LOT:[id number] EXP:08/10 Omnipaque, Iohexol 240 mgI/ml 50ml NDC# 1826-9424-77 LOT# [id number] EXP: 12/12 Dexamethasone Sodium Phosphate 10mg/ml 1ml [facility] NDC:9162-0365-21 LOT# [id number] EXP: 12/11 Plan Of Treatment Pending Test Test Name Order Date X ray : Spines, lumbar complete 02/25/20 MRI : Lumbar without contrast 12/07/2023 MRI : Thoracic without Contrast 06/02/19 24 MRI : Thoracic without Contrast 07/08/19 23 MRI : Thoracic without Contrast 09/09/19 23 MRI : Thoracic without Contrast 11/18/19 23 DME LSO - Please dispense LS O brace for this patient for the below diagnosis. 06/18/2024 Insurance Providers Payer Name Payer Address Payer Phone Subscriber Number Group Number Insured Name Patient Relationship to Insured Coverage Start Date Coverage End Date [facility] [address] [address] [place] [address] [id number] Holden Magaña Self - patient is the insured Medical (General) History Medical History History ICD Code Bronchitis Chicken pox pneumonia High blood pressure Surgical History Surgery Date(Month/Year) Intradiscal electro thermoplasty 2000 Hospitalization History Reason Date(Month/Year)
== END 2024-12-25 08:29 | disposition home or self-care (01) ==
LOC: HO.HOSX 08:28
DX: S82.851D Displaced trimalleolar fracture of right lower leg, subsequent encounter for closed fracture with routine healing (principal); S62.102D Fracture of unspecified carpal bone, left wrist, subsequent encounter for fracture with routine healing; X58.XXXA Exposure to other specified factors, initial encounter
CPT/HCPCS: 29075; 29405; 73110; 73610; 99212

== ENCOUNTER 2024-12-25 13:11 | Outpatient (AMB) | payer MEDICARE, SELFPAY ==
--- NOTE | 2024-12-25 13:28 | A.OFFVIS_ITS ---
Vital Signs 12/25/24 13:30 Height 6 ft Weight 203 lb BMI 27.5 Intake Visit Reasons: PO-RT ankle ORIF 12/08/24 per AA Intake Note: Ankur is a 59 year old right hand dominant male who presents today post- operatively status post Right Ankle ORIF, DOS: 12/08/[address] Mendiola. At his last visit he was placed in posterior leg splint. Patient reports he is doing well on the right ankle. Patient presents concern on his left wrist cast. He states swelling has gone down and now he feels like he can move his wrist inside his cast. Denies any other concerns. Allergies glipizide Allergy (Severe, Verified 12/25/24 13:30) N/V for 5 days pentazocine (From Talwin) Allergy (Severe, Verified 12/25/24 13:30) Very rapid HR and high BP HPI HPI PO-RT ankle ORIF 12/08/24 per AA: Details: Ankur is a 59 year old right hand dominant male who presents today post- operatively status post Right Ankle ORIF, DOS: 12/08/[address] Mendiola. At his last visit he was placed in posterior leg splint. Patient reports he is doing well on the right ankle, reports no concern with the splint. Has been totally nonweightbearing. Patient presents concern on his left wrist cast. He states swelling has gone down and now he feels like he can move his wrist inside his cast. Denies any other concerns. [facility] Medical History Hypertension Opioid dependence Opioid dependence Thoracic radiculopathy Spondylosis of lumbar spine Disc degeneration, lumbar Chronic, continuous use of opioids Chronic pain syndrome Thoracic spine pain Low back pain Social History Household Members: Spouse Housing: House Are you a primary patient care manager to a significant other at home: No Do you presently have visiting nurse or other home services: No Patient Tobacco Use Status: Former Tobacco user e-Cigarette/Vaping Use: Never Used Second Hand Smoke Exposure: No service: No Review of Systems Const All systems reviewed & are unremarkable except as noted in HPI and below Physical Exam Vital Signs: BMI result Body Mass Index 27.5 Extrem Other: Right ankle exam: Patient's right ankle slightly swollen and ecchymotic to inspection No further drainage noted Fracture blisters around medial incision site, once on lateral incision site appear to have ruptured No erythema noted No evidence of infection Patient reports no tenderness to palpation of the right ankle Distal sensation intact Capillary refill brisk Left wrist exam: Patient is alert, oriented, and in no acute distress. Neuro: Normal sensation of the tips of all digits of the left hand at this time Vascular: Cap refill brisk Pain: No tenderness to palpation about the left distal radius ROM: Patient is able to make a closed fist and extend all digits of the left hand fully Skin: Well approximated and well healing incision site noted on the volar left wrist No further drainage from incision site No lacerations or abrasions. General: Ecchymosis noted of the left distal radius, minimal edema No erythema or evidence of infection Psych: Appears grossly normal Affect normal Attitude cooperative Office Procedures Casting/Splints 01742-Zold/Wrist Cast Application [id number]-Kjdrr Leg Cast Application Procedure code (CPT) selection complete Results Reviewed Results Reviewed: X-rays obtained in the office today and independently reviewed by me, Dann Tinajero PA-C, demonstrate status post ORIF of right ankle with all orthopedic hardware in place and in satisfactory clinical alignment. Assessment & Plan Assessment & Plan (1) Closed fracture of left wrist: Code(s): S62.102A - Fracture of unspecified carpal bone, left wrist, initial encounter for closed fracture Category: Medical (2) Closed displaced trimalleolar fracture of right ankle: Code(s): S82.851A - Displaced trimalleolar fracture of right lower leg, initial encounter for closed fracture Category: Medical Plan 1. Status post right ankle ORIF DOS 12/08/2024 Patient appears to be recovering fairly well postoperatively Patient is educated about the typical recovery course At this time, due to the very superficial wounds that are the result of ruptured flexor blisters around the incision site, along with fracture blisters on medial incision, patient is placed into a cast with windows over both the medial and lateral malleoli Patient is educated on daily wet-to-dry dressing changes under cast windows, will rewrap with Colton bandage or Coban once dressing changes were done [place] removed without issue Patient is advised that the Medical advisement for this injury is to remain in the area for approximately 6 weeks after surgery so that we can continue to assess, but the patient states that if he is discharged from rehab, which he feels might be upcoming soon, he will need to return home to [place]. Patient states he already has not Orthopedics office in mind that he has an appointment with Patient is educated he will be totally nonweightbearing for a total of 6 weeks after surgery, at which point we might be able to explore weight-bearing Patient understands this and is amenable to this plan 2. Status post left distal radius ORIF DOS 12/10/2024 Patient appears to be recovering very well postoperatively Patient is educated about the typical recovery course Patient is placed into a short-arm cast Patient is educated on proper cast care and precautions 2 lb weight limit in left hand Patient understands this is amenable to this plan Orders: Orders XR ankle RT min 3V 12/25/24 M25.571 - Pain in right ankle and joints of right foot XR wrist LT min 3V 12/25/24 M25.532 - Pain in left wrist Coding Level of Care Code Global (04325) Diagnoses Closed fracture of left wrist S62.102A Closed displaced trimalleolar fracture of right ankle S82.851A CPT Codes Casting - CPT: 10144-Geyg/Wrist Cast Application ([id number]) Casting - CPT: 19262-Tfmrw Leg Cast Application ([id number])
[2024-12-25 13:30] VITALS: BMI 27.5
== END 2024-12-25 15:36 | disposition home or self-care (01) ==
LOC: HO.HOS 13:11
DX: S62.102A Fracture of unspecified carpal bone, left wrist, initial encounter for closed fracture (principal); S82.851A Displaced trimalleolar fracture of right lower leg, initial encounter for closed fracture
CPT/HCPCS: 29075; 29405; 99024

== ENCOUNTER → 2024-12-25 13:11 | Outpatient (BNV) | payer MEDICARE, SELFPAY | PROVIDERS: Visit Provider Radiology Diagnostic Radiology | DX: M25.571 Pain in right ankle and joints of right foot (principal); S82.841D Displaced bimalleolar fracture of right lower leg, subsequent encounter for closed fracture with routine healing; M25.532 Pain in left wrist | CPT/HCPCS: 73110; 73610 ==